=== PATIENT | male | born 1935 | race Caucasian/White ===

== ENCOUNTER → 2017-10-02 | Outpatient (CLI) | payer OTHER | LOC: BHLMT 10:00 | PROVIDERS: ATTEND Internal Medicine Cardiovascular Disease | DX: R01.1 Cardiac murmur, unspecified (principal); I10 Essential (primary) hypertension | CPT/HCPCS: 93306-PO ==

== ENCOUNTER → 2017-10-10 | Outpatient (CLI) | payer OTHER | LOC: BHFA 15:30 | PROVIDERS: ATTEND Internal Medicine Cardiovascular Disease | DX: R09.89 Other specified symptoms and signs involving the circulatory and respiratory systems (principal) ==

== ENCOUNTER → 2017-10-14 | Outpatient (CLI) | payer OTHER ==
[~2017-10-14] MED LIST: IOPAMIDOL (ISOVUE 370) 100 ML BTL IV ONE
== END ==
LOC: FIMAGING 14:00
PROVIDERS: ATTEND Internal Medicine Cardiovascular Disease
DX: I71.2 Thoracic aortic aneurysm, without rupture (principal)
CPT/HCPCS: 71275; 74174; Q9967

== ENCOUNTER 2017-12-03 12:32 | Inpatient (IN) | payer OTHER ==
[2017-12-03] MEDS ORDERED: DIAZEPAM 5 MG TAB PO ONE (12:39)
[2017-12-03] MEDS ORDERED: ASPIRIN EC 325 MG TAB PO ONE ×2 (12:39→13:03)
[2017-12-03] MEDS ORDERED: NS 1,000 ML IV ONE (12:39)
[2017-12-03] MEDS ORDERED: diphenhydrAMINE 25 MG CAP PO ONE ×2 (12:39→13:03)
[2017-12-03] MEDS ORDERED: FAMOTIDINE 20 MG TAB PO ONE (12:39)
[2017-12-03] MEDS ORDERED: FAMOTIDINE 20 MG TAB ONE (13:03)
[2017-12-03] MEDS ORDERED: DIAZEPAM 5 MG TAB ONE (13:04)
--- NOTE | 2017-12-03 13:09 | CPEKG ---
Heart Rate: 79 RR Interval: 759 P-R Interval: 136 QRSD Interval: 154 QT Interval: 440 QTC Interval: 505 P [place]: -38 QRS [place]: -57 T Wave [place]: 112 EKG Severity - ABNORMAL ECG - EKG Impression: SINUS RHYTHM EKG Impression: PROBABLE LEFT ATRIAL ABNORMALITY EKG Impression: LEFT BUNDLE BRANCH BLOCK Electronically Signed By: Ancelmo Mckeon 04-Dec-2017 12:44:34
[2017-12-03 13:34] LABS: INR 1.12 (0.83-1.16); PROTIME(PATIENT) 14.6 SEC (12.0-15.0)
--- NOTE | 2017-12-03 13:40 | PDHPUP ---
History & Physical Update H&P update statement: This history and physical update is based on an assessment of the patient which was completed after admission or registration (within 24 hours), but prior to the surgery/procedure. H&P update: H&P reviewed & patient examined, no change in patient's condition since H&P completed
--- NOTE | 2017-12-03 13:40 | PDPROPOC ---
Sedation Plan of Care Sedation Plan of Care: vital signs stable, mental status noted, patient educated of risks, benefits, alternatives, patient can tolerate sedation ASA Classification: ASA 2 Planned drugs: fentanyl, midazolam Mallampati Score: Class 2 Mallampati Reference Image: Patient passed 3-3-2 rule?: Yes
[2017-12-03 13:42] LABS: PLATELET COUNT 132 10^3/uL (150-400)
[2017-12-03] MEDS ORDERED: fentaNYL 100 MCG/2 ML INJ ONE (13:45)
[2017-12-03] MEDS ORDERED: LIDOCAINE 1% 300 MG/30 ML SDV ONE (13:45)
[2017-12-03] MEDS ORDERED: MIDAZOLAM 2 MG/2 ML VIAL ONE (13:46)
[2017-12-03] MEDS ORDERED: IOPAMIDOL (ISOVUE-370) 150 ML BTL IV ONE (13:46)
--- NOTE | 2017-12-03 15:53 | CPIP ---
[f rep st] INVASIVE CARDIAC PROCEDURE DATE OF PROCEDURE: 12/03/2017 PROCEDURE PERFORMED: Coronary angiography. INDICATION: Preoperative evaluation prior to ascending aortic aneurysm repair and aortic valve repla cement. ACCESS: The patient was prepped and draped in sterile fashion, and 1% lidocaine was used to anesthet ize the right inguinal region. A 6-Lebanese introducer sheath was placed selectively into the right co mmon femoral artery via modified Seldinger technique. CORONARY ANGIOGRAPHY: A 6-Lebanese JL4 was advanced to the left main coronary artery. It did not enga ge the artery well. It was exchanged for a 6-Lebanese JL-6. The 6-Lebanese JL-6 engaged the left main c oronary artery well, and images were obtained. The left main coronary artery trifurcated into an LAD , ramus, and circumflex coronary arteries. The left main coronary artery appeared normal. The left anterior descending coronary artery had mild diffuse disease in the proximal segment. There was no s tenosis greater than 20%. The ramus coronary artery is a large vessel. The ramus coronary artery ap peared normal. The circumflex coronary artery is a moderate-sized vessel. The circumflex coronary a rtery had mild diffuse disease in the mid vessel. There was no stenosis greater than 20%. A 6-Frenc h JR4 was advanced to the right coronary artery, and images obtained. The right coronary artery is d ominant. The right coronary artery had a single discrete 10-15% stenosis in the proximal segment. COMPLICATIONS: None. CONCLUSIONS: Mild coronary artery disease without flow limitation. /[id number]/MODL
[2017-12-03] MEDS ORDERED: CHLORHEXIDINE GLUC HIBICLENS 118 ML BTL TP SCH (21:00)
[2017-12-03] MEDS: SENNOSIDES/DOCUSATE SODIUM TAB PO SCH (21:48)
[2017-12-03] MEDS: MUPIROCIN 2% 22 GM OINT NS SCH (21:49)
[2017-12-04] MEDS ORDERED: SODIUM BICARBONATE 20 MEQ, LIDOCAINE 1% 10 ML in NORMOSOL-R 1,000 ML MISC ONE (06:00)
[2017-12-04] MEDS ORDERED: AMINOCAPROIC ACID 5 GM/20 ML VIAL IV ONE (06:00)
[2017-12-04] MEDS ORDERED: ceFAZolin 2 GM/SWFI 2 GM/20 ML SYR IVP ONE (06:00)
[2017-12-04] MEDS ORDERED: CITRATE DEXTROSE SOLN 500 ML BAG MISC ONE (06:00)
[2017-12-04] MEDS ORDERED: MANNITOL 25% 12.5 GM/50 ML VIAL IVP ONE (06:00)
[2017-12-04] MEDS ORDERED: INSULIN REGULAR HUMAN 100 UNIT in NS 100 ML IV ONE (06:00)
[2017-12-04] MEDS ORDERED: PHENYLEPHRINE HCL 50 MG in NS 250 ML IV ONE (06:00)
[2017-12-04] MEDS ORDERED: NOREPINEPHRINE BITARTRATE 16 MG in NS 250 ML IV ONE (06:00)
[2017-12-04] MEDS ORDERED: HEPARIN 10,000 UNIT/10 ML MDV (1,000 UNIT/ML) ONE ×2 (06:35→06:37)
[2017-12-04] MEDS ORDERED: PROTAMINE SULFATE 50 MG/5 ML VIAL IVP ONE (06:35)
[2017-12-04] MEDS ORDERED: CALCIUM CHLORIDE 1 GM/10 ML INJ ONE ×2 (06:35→06:37)
[2017-12-04] MEDS ORDERED: MILRINONE/DEXTROSE/100 ML BAG IV ONE (06:35)
[2017-12-04] MEDS ORDERED: DOPamine/DEXTROSE/250 ML BAG IV ONE (06:35)
[2017-12-04] MEDS ORDERED: NA BICARBONATE 50 MEQ/50 ML VIAL ONE (06:35)
[2017-12-04] MEDS ORDERED: ADENOSINE 6 MG/2 ML VIAL ONE (06:36)
[2017-12-04] MEDS ORDERED: ceFAZolin 1 GM VIAL ONE (06:36)
[2017-12-04] MEDS ORDERED: AMIODARONE HCL 150 MG/3 ML VIAL ONE ×2 (06:36→06:37)
[2017-12-04] MEDS ORDERED: niCARdipine/NACL/200 ML BAG IV ONE (06:36)
[2017-12-04] MEDS ORDERED: CITRATE DEXTROSE SOLN 500 ML BAG ONE (06:37)
[2017-12-04] MEDS ORDERED: ALBUMIN 5% 250 ML BOTTLE IV ONE (06:37)
[2017-12-04] MEDS ORDERED: LIDOCAINE 2% 100 MG/5 ML SYR ONE (06:37)
[2017-12-04] MEDS ORDERED: MAGNESIUM SULFATE 1 GM/2 ML VIAL ONE (06:38)
[2017-12-04] MEDS ORDERED: methylPREDNISolone SOD SUCC 1 GM/8 ML VIAL ONE (06:38)
[2017-12-04] MEDS ORDERED: fentaNYL 250 MCG/5 ML INJ ONE ×2 (06:44)
[2017-12-04] MEDS ORDERED: PROPOFOL/EMULSION 500 MG/50 ML BOTTLE IV ONE ×2 (06:44→09:57)
[2017-12-04] MEDS ORDERED: LR 1,000 ML IV ONE (06:55)
--- NOTE | 2017-12-04 07:01 | PDHPUP ---
History & Physical Update H&P update statement: This history and physical update is based on an assessment of the patient which was completed after admission or registration (within 24 hours), but prior to the surgery/procedure. H&P update: H&P reviewed & patient examined, changes noted ([facility] notable for rt dom leticia system with mild diffuse disease without flow limitations. SB 50s on tele.)
[2017-12-04] MEDS: MUPIROCIN 2% 22 GM OINT NS SCH ×2 (07:05→20:28)
[2017-12-04] MEDS ORDERED: MIDAZOLAM 2 MG/2 ML VIAL IVP ONE (07:05)
--- NOTE | 2017-12-04 07:06 | PDANEPAE ---
ANE History of Present Illness asc aortic aneurysm ANE Past Medical History - Cardiovascular History Hx Hypertension: Yes Hx Arrhythmias: No Hx Chest Pain: No Hx Coronary Artery / Peripheral Vascular Disease: No Hx CHF / Valvular Disease: Yes Hx Palpitations: No - Pulmonary History Hx COPD: No Hx Asthma/Reactive Airway Disease: No Hx Recent Upper Respiratory Infection: No Hx Oxygen in Use at Home: No Hx Sleep Apnea: No Sleep Apnea Screening Result - Last Documented: Negative - Neurologic History Hx Cerebrovascular Accident: No Hx Seizures: No Hx Dementia: No - Endocrine History Hx Diabetes: No Hypothyroid: No Hyperthyroid: No - Renal History Hx Renal Disorders: No - Liver History Hx Hepatic Disorders: No - Cancer History Hx Cancer: Yes Cancer History Comment: prostate - Chronic Pain History Chronic Pain: No ANE Review of Systems Review of Systems: ANE Patient History - Allergies Allergies/Adverse Reactions: ciprofloxacin [From Cipro] Allergy (Verified 11/17/17 11:52) Other-Enter Comments levofloxacin [From Levaquin] Allergy (Verified 11/17/17 11:52) Other-Enter Comments - Home Medications Home Medications: Ascorbic Acid [Vitamin C 500 mg (*)] 500 mg PO DAILY 11/17/17 [Last Taken ] Cholecalciferol Vit D3 [Vitamin D3 (*)] 1,000 units PO DAILY 11/17/17 [Last Taken 12/02/17] Herbals/Supplements -Info Only 1 ea PO DAILY 11/17/17 [Last Taken 12/02/17] Hydrochlorothiazide [HCTZ (*)] 37.5 mg PO DAILY 11/17/17 [Last Taken 12/02/17] [place]-3 Fatty Acids [Fish Oil 1000 mg (*)] 1,000 mg PO DAILY 11/17/17 [Last Taken 12/02/17] Omeprazole 20 mg PO DAILY 11/17/17 [Last Taken 12/02/17] Vitamin B Complex [Vitamin B Complex (OTC)] 1 each PO DAILY 11/17/17 [Last Taken 12/02/17] - NPO status NPO Status: no food or drink >8 hours NPO Since - Liquids (Date): 12/04/17 NPO Since - Liquids (Time): 00:00 NPO Since - Solids (Date): 12/04/17 NPO Since - Solids (Time): 00:00 - Smoking Hx Smoking Status: Never smoked ANE Labs/Vital Signs - Labs Result Diagrams: 12/03/17 13:00 12/04/17 03:15 - Vital Signs Blood Pressure: 135/70 Heart Rate: 67 Respiratory Rate: 16 O2 Sat (%): 95 Height: 160 cm Weight: 57.4 kg ANE Physical Exam - Airway Mallampati Score: Class 2 Mouth exam: normal dental/mouth exam - Pulmonary Pulmonary: no respiratory distress - Cardiovascular Cardiovascular: regular rate and rhythym - ASA Status ASA Status: III ANE Anesthesia Plan Anesthesia Plan: general endotracheal anesthesia Lines/Monitors: arterial line, central line, KAMRAN
[2017-12-04] MEDS ORDERED: MIDAZOLAM 2 MG/2 ML VIAL ONE (07:20)
--- NOTE | 2017-12-04 07:52 | PDMN ---
Medical Necessity Medical necessity: [facility] IP only surgery, cpt 94796 aortic aneurysm repair & aortic valve replacement
[2017-12-04] MEDS ORDERED: MINERAL OIL 10 ML VIAL ONE (12:34)
[2017-12-04] MEDS ORDERED: MAGNESIUM SULF 2 GM/WATER 50 ML BAG IV ONE (13:28)
[2017-12-04] MEDS ORDERED: MAGNESIUM HYDROXIDE 30 ML UDCUP PO PRN (13:40)
[2017-12-04] MEDS ORDERED: SODIUM CL NASAL 45 ML BTL EACHNARE PRN (13:40)
[2017-12-04] MEDS ORDERED: BISACODYL 10 MG SUPP PR PRN (13:40)
[2017-12-04] MEDS ORDERED: MEPERIDINE 25 MG/0.5 ML AMP IVP PRN (13:40)
[2017-12-04] MEDS ORDERED: ONDANSETRON DISINTEGRATING 4 MG TAB PO PRN (13:40)
[2017-12-04] MEDS ORDERED: CEPACOL LOZENGE PO PRN (13:40)
[2017-12-04] MEDS ORDERED: PANTOPRAZOLE SODIUM 40 MG VIAL IVP ONE (13:40)
[2017-12-04] MEDS ORDERED: MAGNESIUM SULF 2 GM/WATER 50 ML IV ONE (13:40)
[2017-12-04] MEDS ORDERED: D50W 25 GM/50 ML SYR IVP PRN (13:40)
[2017-12-04] MEDS ORDERED: ACETAMINOPHEN 650 MG SUPP PR PRN (13:40)
[2017-12-04] MEDS ORDERED: ALBUMIN 5% 250 ML IV PRN (13:40)
[2017-12-04] MEDS ORDERED: LACTULOSE 20 GM/30 ML UDCUP PO PRN (13:40)
[2017-12-04] MEDS ORDERED: HYDROCODONE/APAP 5/325 TAB PO PRN (13:40)
[2017-12-04] MEDS ORDERED: POLYETHYLENE GLYCOL 3350 17 GM PKT PO PRN (13:40)
[2017-12-04] MEDS ORDERED: ACETAMINOPHEN 325 MG TAB PO PRN (13:40)
[2017-12-04] MEDS ORDERED: METOCLOPRAMIDE 10 MG/2 ML VIAL IVP PRN (13:40)
[2017-12-04] MEDS ORDERED: ONDANSETRON 4 MG/2 ML VIAL IVP PRN (13:40)
[2017-12-04] MEDS ORDERED: NS 1,000 ML IV SCH (13:45)
[2017-12-04] MEDS ORDERED: INSULIN REGULAR HUMAN 100 UNIT in NS 100 ML IV SCH (14:00)
[2017-12-04] MEDS ORDERED: ceFAZolin 2 GM/DEXTROSE 100 ML IV SCH (14:00)
--- NOTE | 2017-12-04 14:05 | POSTANESTH ---
Post Anesthetic Evaluation Cardiovascular Status: Normal, Stable, Tx Hyper/Hypo-tension, Other, See Comment Respiratory Status: Normal, Stable, Requires Airway Assist, Other, See Comment Level of Consciousness/Mental Status: Other, See Comment Pain Control: Adequate, Prn Tx Ordered Nausea/Vomiting Control: Adequate, Prn Tx Ordered Complications Possibly Related to Anesthesia: None Noted (stable on dopamine, stable on vent, sedated with propofol)
[2017-12-04] MEDS ORDERED: AMIODARONE HCL 100 ML IV ONE (15:30)
[2017-12-04] MEDS: ceFAZolin 2 GM/SWFI 2 GM/20 ML SYR IVP SCH ×2 (15:33→21:45)
--- NOTE | 2017-12-04 16:10 | GOP ---
[f rep st] OPERATIVE REPORT DATE OF OPERATION: 12/04/2017 SURGEON: Harry Amaro DO DIGITAL COMPOSER: VIBHA Urbina ANESTHESIOLOGIST: Christopher Gupta MD PREOPERATIVE DIAGNOSIS: 1. Aortic root and transverse arch aneurysm. 2. Severe aortic insufficiency. 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 2. Severe aortic insufficiency. 3. Evidence of coagulopathy. PROCEDURE PERFORMED: 1. Aortic root replacement with a #27 freestyle bioprosthesis. 2. Samuel-arch replacement under low-flow circulation arrest with a #30 Hemashield graft. 3. Right axillary artery end-to-side 8 mm graft for cannulation. FINDINGS: The patient presented with severe aortic insufficiency with markedly dilated sinuses, asce nding aorta and transverse arch tapering to 3.6 cm in the distal arch. He was noted to have heavy ca lcification in the distal 3rd of the ascending and transverse arch. The valve was trileaflet. His c oronaries had moderate, nonobstructing disease. DESCRIPTION OF PROCEDURE: He was consented for surgery, brought to the operating room, intubated, mo nitoring lines were placed including a transesophageal echo. Right axillary artery was exposed witho ut difficulty. An 8 mm Hemashield graft was anastomosed end-to-side with BioGlue reinforcement and a cannula placed in it after heparinization. We then opened the sternum and cannulated the right atri um as well as retrograde cardioplegia and LV sump. Cardiopulmonary bypass was begun. The patient fibrillated almost immediately upon going on bypass. The sump was turned down. The LV w as decompressed and the aorta was crossclamped with retrograde cardioplegia administered as well as t opical hypothermia, and cooling to 22 degrees centigrade, with EEG guidance during the cooling period . The coronary sinuses were resected, the buttons were developed. The valve was excised and the pat ient was sized for a 27 mm freestyle graft. Pledgeted mattress sutures were then placed through the anulus and through the graft itself and secured with Cor-Knots. This was reinforced with BioGlue. W e then excised a button from the noncoronary sinus of the pig's root, which had been rotated 120 degr ees, and this became the patient's left coronary sinus where the coronary button was re-anastomosed w ithout difficulty. The same was done on the right side after measuring properly with the heart full, which was anastomosed to the pig's right coronary button. The non-coronary button was oversewn with a pledgeted mattress suture. At this point, the patient had reached 22 degrees centigrade, and had EEG silence for 4 minutes. The patient was placed in deep Trendelenburg. A clamp was placed across the base of the innominate a rtery where there was no plaque, and continuous perfusion of the brain through the right axillary art lorenzo was performed at 10 cc/kg at 22 degrees centigrade. We then transected the undersurface of the a rch as far as the left subclavian artery, and fashioned a samuel arch graft of 30 mm, which was approxi mated with a continuous running 3-0 Prolene suture, reinforced at multiple sites with pledgeted mattr ess sutures. BioGlue was applied. The cross-clamp was reapplied to the graft and rewarming was begu n. We then continued the aortic root by securing the remainder of the buttons and fashioned it for a n end-to-end anastomosis to the graft, which was performed without difficulty and without abnormal an gulation or kinking. This was reinforced with BioGlue and a vent was placed in the graft. The cross -clamp was removed with suction on the ascending aortic vent and LV sump. Spontaneous cardiac activity was noted to resume. The patient was then easily weaned from bypass. Duran rodas watched him for some time off bypass, repaired some suture anastomotic leaks with pledgeted mattres s sutures. The heparin was then reversed with protamine. The cannula was removed and oversewn. The Hemashield graft was transected a centimeter prior to its anastomosis and oversewn as well as having clips applied. All wounds were closed in a standard fashion. Transesophageal echo revealed good LV function with normal aortic valve function. The patient was returned to ICU in stable condition. /[id number]/MODL
[2017-12-04] MEDS ORDERED: PANTOPRAZOLE SODIUM 40 MG VIAL ONE (16:50)
--- NOTE | 2017-12-04 17:21 | GCON ---
[f rep st] CONSULTATION HIDE INSPECTOR CONSULTATION Patient examined postoperatively after receiving a replacement of the aortic valve root and severiano-arch . HISTORY OF PRESENT ILLNESS: The patient is an 82-year-old white male with past medical history inclu ding gastroesophageal reflux disease, hypertension, prostate cancer, aortic regurgitation, and an asc ending aortic aneurysm. He is examined postoperatively. Patient is currently sedated and on mechani lisa ventilation. Prior to this, he was doing reasonably well. There was no pleuritic-type chest román n or angina equivalent, no shortness of breath, and no cough or production of sputum. REVIEW OF SYSTEMS: 10-point review of systems deferred secondary to patient on mechanical ventilatio n. PAST MEDICAL HISTORY: Again significant for aortic regurgitation, gastroesophageal reflux disease, h ypertension, prostate cancer, and again aortic aneurysm. PAST SURGICAL HISTORY: Has had ankle surgery, cataract, and tonsillectomy. HOME MEDICATIONS: Include calcium, coenzyme Q10, fish oil, hydrochlorothiazide, lycopene, magnesium, saw palmetto, and multivitamins. SOCIAL HISTORY: No history of tobacco use. No history of alcohol use. FAMILY HISTORY: Significant for cancer. PHYSICAL EXAM: VITAL SIGNS: Blood pressure 135/70, pulse 67, respirations 16, temperature 36.5, oxy gen saturation 95% on mechanical ventilation. GENERAL: A well-developed, well-nourished elderly whi te male who is resting comfortably on mechanical ventilation. HEENT: Eyes are PERRLA,. EOMI. Thro at: Endotracheal tube is in good position. NECK: Supple with no cervical adenopathy. HEART: Regu lar rate and rhythm and rhythm. A 2/6 systolic murmur at the left sternal border without radiation. LUNGS: Diminished breath sounds but no wheeze. ABDOMEN: Soft, nontender. Bowel sounds are presen t in all 4 quadrants. EXTREMITIES: No clubbing, cyanosis, or edema. LABORATORY DATA: White count 4.7, hemoglobin 15, hematocrit 44, platelet count 132. INR is 1.12. S odium 141, potassium 3.8, chloride 106, CO2 27, BUN 24, creatinine 1.2. Chest x-ray shows lines in good position and endotracheal tube in good position. There is some evide nce of cardiomegaly and a widened mediastinum. IMPRESSION: 1. Status post aortic valve replacement and replacement of the aortic root and severiano-arch. 2. Acute respiratory failure secondary to above. 3. History of hypertension. 4. History of prostate cancer. 5. History of gastroesophageal reflux disease. RECOMMENDATIONS: 1. Will wean from mechanical ventilation as tolerated. 2. DVT and PE prophylaxis, holding anticoagulation for now. 3. Stress ulcer prophylaxis. 4. Aggressive blood sugar control. 5. Early ambulation. 6. PT and OT. /[id number]/MODL
[2017-12-04] MEDS: fentaNYL 100 MCG/2 ML INJ IVP PRN ×3 (17:23→22:27)
[2017-12-04] MEDS: KETOROLAC 15 MG/1 ML SDV IVP SCH (17:23)
[2017-12-04] MEDS ORDERED: FAMOTIDINE 20 MG/NACL 50 ML IV SCH (18:00)
[2017-12-04] MEDS: POTASSIUM Cl (KCl) 50 ML IV PRN ×2 (18:21→19:42)
[2017-12-04] MEDS ORDERED: CHLORHEXIDINE GLUCONATE 15 ML UDL PO SCH (21:00)
[2017-12-04] MEDS: SENNOSIDES/DOCUSATE SODIUM TAB PO SCH (22:15)
[2017-12-05 01:01] LABS: PLATELET COUNT 43 10^3/uL (150-400)
[2017-12-05] MEDS: KETOROLAC 15 MG/1 ML SDV IVP SCH ×2 (01:03→05:35)
[2017-12-05 05:11] LABS: PLATELET COUNT 44 10^3/uL (150-400)
[2017-12-05] MEDS ORDERED: HEPARIN 5,000 UNIT/0.5 ML INJ SC SCH (06:00)
[2017-12-05] MEDS: ceFAZolin 2 GM/SWFI 2 GM/20 ML SYR IVP SCH ×3 (06:10→22:32)
--- NOTE | 2017-12-05 06:59 | SOAPPROG ---
SOAP Progress Note Assessment/Plan: Assessment: POD#1 Composite graft replacement of AVR/root/asc ao and hemiarch with 27mm Freestyle porcine root and 30 mm hemashield graft. Rt axillary cannulation with 8 mm hemashield graft for low flow cerebral perfusion during hypothermic circulatory arrest. Aneurysmal aorta with severe AI - s/p tissue AVR/root/asc ao and hemiarch replacement under hypothermic circ arrest. Stable early postop course. Extubated without incident. No apparent neurologic dysfx. Adequately diuresing moderate volume overload with stable renal fx. Antithrombotic prophylaxis with ASA alone pending stability of rhythm. AF prophylaxis with BB as allowed by rhythm. Postop AV node dyfx - Hx bradycardia. Early postop JR and nonconducted PWs req DDD pacing. EP consulted. 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 Acute expected blood loss anemia with thrombocytopenia and coagulopathy - Stable s/p 4u PRBC, 1u plt and 2u FFP. No evidence active bleeding. VTE prophylaxis with SCDs until platelet rebound. HTN - Home control with HCTZ. Postop control with BB and lasix when appropriate. Nonobstructive coronary and carotid artery disease - Secondary prevention with baby ASA, BB and statin when appropriate. Plan: NPO pending EP review of rhythm. Stop Toradol. Routine POD#1 orders re lines and mobility. 12/05/17 06:56 Subjective: Comfortable. No dizziness or nausea. Hungry. Objective: Vital Signs Temp Pulse Resp BP Pulse Ox 37.1 C 80 15 143/60 H 96 12/05/17 03:57 12/05/17 06:00 12/05/17 06:00 12/05/17 06:00 12/05/17 06:00 Laboratory Results 12/05/17 04:31 12/05/17 04:31 12/04/17 12/05/17 12/06/17 05:59 05:59 05:59 Intake Total 1050 1414 Output Total 1642 Balance 1050 -228 PT 14.6 SEC (12.0-15.0) 12/03/17 13:00 INR 1.12 (0.83-1.16) 12/03/17 13:00 No gtts. Remains pacer dep. No underlying escape rhythm. Min suppl O2 req. No sig CTOP. Balanced I/Os. CXR -> No PTX, mild pulm vasc congestion, sm left pl eff. Labs as expected, incl platelet count. Physical Exam - Physical Exam General Appearance: alert, no apparent distress Respiratory: decreased breath sounds (bases), other (CTs x 2 y-d to pleurovac, serosang drainage, no air leak) Cardiac/Chest: regular rate, rhythm (paced), other (Sternotomy dressing CDI. A& V wires intact.) Abdomen: normal bowel sounds, non-tender, soft Skin: warm/dry Extremities: swelling (1+ gen), other (Rt ax incision CDI. Rt hand CSM intact. ) ICD10 Worksheet Patient Problems: Problems Problem Status Onset Acute blood loss anemia Acute Coronary atherosclerosis Acute S/P ascending aortic replacement Acute ~12/04/17 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
[2017-12-05] MEDS ORDERED: ASPIRIN 81 MG CHEWABLE TAB TUBE PRN (09:00)
[2017-12-05] MEDS ORDERED: BACITRACIN IRRIGATION/NS 50,000 UNITS/1,000 ML BTL IRR ONE (09:09)
[2017-12-05] MEDS ORDERED: ceFAZolin 2 GM/SWFI 2 GM/20 ML SYR IVP ONE (09:09)
--- NOTE | 2017-12-05 09:25 | ASMTCMCOM ---
CM Note CM Note Notes: Patient is POD #1 aortic valve replacement. He was extubated after surgery and is stable in the ICU. Patient lives independently with . PT/OT have been ordered. If patient has discharge needs, Case Management will assist. Date Signed: 12/05/2017 09:25 AM Electronically Signed By:Courtney Samuel RN
--- NOTE | 2017-12-05 09:50 | PDINTPN ---
Pattern [facility] Progress Note Assessment/Plan: Assessment/plan: * Aortic aneurysm * Status post replacement of aortic valve and severiano arch * Respiratory-stable off mechanical ventilation * Postop AV node dysfunction-pacemaker soon * Pain-well controlled * Coronary disease * Prostate cancer * Hypertension * Gastroesophageal reflux disease * PT/OT Subjective: Working with PT. Ambulating well. Still somewhat unsteady on his feet. Objective: Vital Signs Temp Pulse Resp BP Pulse Ox 37.3 C 90 26 H 121/57 H 93 12/05/17 09:00 12/05/17 09:00 12/05/17 09:00 12/05/17 09:00 12/05/17 09:00 Laboratory Results 12/05/17 04:31 12/05/17 04:31 12/04/17 12/05/17 12/06/17 05:59 05:59 05:59 Intake Total 1050 1414 Output Total 1642 189 Balance 1050 -228 -189 PT 14.6 SEC (12.0-15.0) 12/03/17 13:00 INR 1.12 (0.83-1.16) 12/03/17 13:00 - Time Spent With Patient Time Spent With Patient: 35 min of time spent with patient, over 1/2 involved with coordination of care or counseling Physical Exam - Physical Exam General Appearance: WD/WN, alert, no apparent distress EENT: PERRL/EOMI Neck: non-tender, full range of motion, supple, normal inspection Respiratory: crackles (Few), No chest non-tender Cardiac/Chest: normal peripheral pulses, regular rate, rhythm, systolic murmur Peripheral Pulses: 2+: carotid (R), carotid (L), femoral (R), femoral (L), dorsalis-pedis (R), dorsalis-pedis (L) Abdomen: normal bowel sounds, non-tender, soft Male Genitalia: deferred Rectal: deferred Skin: normal color, warm/dry Extremities: normal range of motion, non-tender, normal inspection, normal capillary refill ICD10 Worksheet Patient Problems: Problems Problem Status Onset Acute blood loss anemia Acute Coronary atherosclerosis Acute S/P ascending aortic replacement Acute ~12/04/17 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
--- NOTE | 2017-12-05 10:32 | PDPROPOC ---
Sedation Plan of Care Sedation Plan of Care: vital signs stable, mental status noted, patient educated of risks, benefits, alternatives, patient can tolerate sedation ASA Classification: ASA 3 Planned drugs: fentanyl, midazolam Mallampati Score: Class 3 Mallampati Reference Image: Patient passed 3-3-2 rule?: Yes
[2017-12-05] MEDS ORDERED: LIDOCAINE 1% 300 MG/30 ML SDV ONE (10:47)
[2017-12-05] MEDS ORDERED: fentaNYL 100 MCG/2 ML INJ ONE (10:48)
[2017-12-05] MEDS ORDERED: BUPIVACAINE 0.5% 30 ML SDV ONE (10:48)
[2017-12-05] MEDS ORDERED: MIDAZOLAM 2 MG/2 ML VIAL ONE (10:48)
[2017-12-05 11:16] LABS: PLATELET COUNT 39 10^3/uL (150-400)
[2017-12-05] MEDS ORDERED: IOPAMIDOL (ISOVUE-300) 100 ML BTL ONE (11:59)
[2017-12-05] MEDS: PANTOPRAZOLE SODIUM 40 MG TAB PO SCH (12:24)
[2017-12-05] MEDS: ASPIRIN 81 MG CHEWABLE TAB PO SCH (12:24)
[2017-12-05] MEDS: MUPIROCIN 2% 22 GM OINT NS SCH ×2 (12:24→22:31)
--- NOTE | 2017-12-05 16:43 | EPPROC ---
Electrophysiology Procedure Note: PROCEDURE PERFORMED: Implantation of an A/V Pacemaker Fluoroscopy venogram INDICATION: Pt is s/p AVR and has complete heart block and hence it was decided to place dual chamber pacemaker. PROCEDURE NOTE: Patient presented to the cardiac catheterization laboratory in a fasting, post absorptive state. Cardiac wharf labourer nurse administered moderate sedation. The left infraclavicular area was prepped and draped in the usual sterile fashion. Lidocaine plus bupivacaine was used for local anesthesia. Left subclavian venography was performed by injection of iodinated contrast into the left antecubital vein. This was done to assure patency of the vein and also to assess for any anatomical aberrations. Using a combination of blunt and sharp dissection and electrocautery, the dissection was carried down to the prepectoral fascia. All bleeding was controlled with electrocautery. Fluoroscopy was utilized during the entire procedure for venous access and placement of the leads. Using the usual technique, left cephalic vein was accessed but it was small and hence under venogram guidance left subclavian access was obtained and two wires were placed. Through this initially a 7F and later a 7F sheath was passed. Placement of the guidewires into the venous system was confirmed by low- pressure blood return and also by visualizing the guidewires advancing into the inferior vena cava. A purse string suture was applied around the guidewires. An active fixation ventricular lead was advanced into the right ventricular apex and screwed in place. An active fixation atrial lead was advanced into the right atrial appendage and screwed in place. The peel away sheaths were removed. Pacing thresholds, sensing parameters and lead impedances were measured. There was no diaphragmatic stimulation at maximum output. The leads were sutured to the prepectoral fascia with 3 nonabsorbable sutures each. The pocket was created and it was flushed using antibiotic solution. It was inspected for any bleeding. The leads were attached to the pacemaker securely. The pacemaker was inserted into the pocket and secured in place with a nonabsorbable suture. Fluoroscopy was performed in OJEDA and SUDHA planes to verify right-sided placement of the leads. Also fluoroscopy of the pacemaker pocket was performed. The pacemaker pocket was closed in 3 layers with absorbable vicryl sutures. Steristrips were placed. Appropriate dressing was applied. The patient left the cardiac catheterization laboratory in stable condition. Serial Numbers: Device: [facility] [place] 8 SN [id number] Atrial Lead: Biotronik Solia S45 SN [id number] Ventricular Lead: Biotronik Solia S53 SN [id number] Stimulation Thresholds & Impedance Measurements: Atrial Lead 2.9mV, 1.5@0.4ms, 468Ohms Ventricular Lead n/a, 0.6@0.4ms, 565Ohms Lonnie Pacing Parameters Pacing mode: DDDR Lower rate: 60 Upper tracking rate: 130 Upper sensor rate: 130 Patient Problems: Problems Problem Status Onset Acute blood loss anemia Acute Coronary atherosclerosis Acute S/P ascending aortic replacement Acute ~12/04/17 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
[2017-12-05] MEDS: traMADol 50 MG TAB PO PRN (22:31)
[2017-12-06] MEDS ORDERED: NS 1,000 ML IV SCH (01:00)
--- NOTE | 2017-12-06 05:54 | CPEKG ---
Heart Rate: 90 RR Interval: 667 P-R Interval: 191 QRSD Interval: 122 QT Interval: 408 QTC Interval: 500 P [place]: 35 QRS [place]: -76 T Wave [place]: 82 EKG Severity - ABNORMAL ECG - EKG Impression: A-V DUAL-PACED RHYTHM Electronically Signed By: Morgan Malone 08-Dec-2017 08:56:07
[2017-12-06] MEDS: traMADol 50 MG TAB PO PRN ×3 (06:22→21:49)
[2017-12-06 07:18] LABS: PLATELET COUNT 37 10^3/uL (150-400)
--- NOTE | 2017-12-06 07:25 | SOAPPROG ---
SOAP Progress Note Assessment/Plan: POD#2: Composite graft replacement of AVR/root/asc ao and hemiarch with 27mm Freestyle porcine root and 30 mm hemashield graft. Rt axillary cannulation with 8 mm hemashield graft for low flow cerebral perfusion during hypothermic circulatory arrest. POD #1: A/V pacemaker implantation Aneurysmal aorta with severe AI - s/p tissue AVR/root/asc ao and hemiarch replacement under hypothermic circ arrest. Antithrombotic prophylaxis with ASA alone pending stability of rhythm. AF prophylaxis with BB as allowed by rhythm. One chest tube at removal criteria. Postop AV node dyfx - stable s/p PPM implantation. PPM interrogated today without issues. Will clip temporary pacing wires. Postop atrial fibrillation - amiodarone protocol started today. CHADS2 score 3. Will consider starting thromboprophylaxis once platelets rebound. Acute expected blood loss anemia with thrombocytopenia and coagulopathy - Stable s/p 4u PRBC, 1u plt and 2u FFP. No evidence active bleeding. VTE prophylaxis with SCDs until platelet rebound. Precautionary HIT panel pending. HTN - Home control with HCTZ. Postop control with BB and lasix when appropriate. Nonobstructive coronary and carotid artery disease - Secondary prevention with baby ASA, BB and statin when appropriate. Subjective: Denies pain/SOB. Objective: Vital Signs Temp Pulse Resp BP Pulse Ox 37.4 C 91 18 109/57 L 91 L 12/06/17 04:00 12/06/17 04:00 12/06/17 04:00 12/06/17 04:00 12/06/17 04:00 Laboratory Results 12/06/17 06:10 12/06/17 06:10 12/05/17 12/06/17 12/07/17 05:59 05:59 05:59 Intake Total 1414 1925 Output Total 1642 1009 Balance -228 916 PT 14.6 SEC (12.0-15.0) 12/03/17 13:00 INR 1.12 (0.83-1.16) 12/03/17 13:00 Physical Exam - Physical Exam General Appearance: WD/WN, alert, no apparent distress EENT: No scleral icterus (R), No scleral icterus (L) Neck: normal inspection Respiratory: No respiratory distress Cardiac/Chest: irregularly irregular Abdomen: non-tender, soft, No distended Skin: normal color, warm/dry Extremities: pedal edema Neuro/Psych: no motor/sensory deficits, alert, normal mood/affect, oriented x 3 ICD10 Worksheet Patient Problems: Problems Problem Status Onset Acute blood loss anemia Acute Coronary atherosclerosis Acute S/P ascending aortic replacement Acute ~12/04/17 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
--- NOTE | 2017-12-06 10:44 | PDCARPN ---
Cardiology Progress Note Assessment/Plan: Assessment: PACEMAKER PLACEMENT 12/05/[address] Chaim Hendricks Due to CHB. [employer] Dual Chamber Pacemaker with no complications. Pressure Dressing in place. Tender to touch. Remove Pressure dressing this afternoon, then redress site. Pacer function normal. Plan: Will sign off. 12/06/17 10:39 Subjective: Pacemaker site tender when touched, Objective: Vital Signs (8 Hrs) Temp Pulse Resp BP Pulse Ox 12/06/17 08:16 36.6 C 97 24 H 139/76 H 98 12/06/17 04:00 37.4 C 91 18 109/57 L 91 L Intake/Output (24 Hrs) 12/05/17 12/06/17 12/07/17 05:59 05:59 05:59 Intake Total 1414 1925 Output Total 1642 1009 Balance -228 916 Intake: Oral (ml) 700 IV Intake (ml) 502 800 IV Infused (ml) 912 425 Albumin 5% 250 ml @ As 500 Directed IV PRN PRN Rx#: [id number] DOPamine/DEXTROSE 400 mg 54 IV .STK-MED ONE Rx#: [id number] Insulin Regular Human 100 20 unit In Ns 100 ml @ Per Protocol IV CONT AMELIA Rx#: [id number] Magnesium Sulf 2 gm/Water 50 50 ml @ 12.5 mls/hr IV ONCE ONE Rx#:[id number] Ns 1,000 ml @ 25 mls/hr 288 425 IV CONT AMELIA Rx#: [id number] Output: Urine (ml) 1122 599 Catheter 1077 149 Toilet 45 Urinal 450 Chest Tube Output (ml) 520 410 Location 1 520 330 Location 2 80 Other: Weight 62 kg 66.6 kg Intake Quantity No: waiting code enforcement officer eval Sufficient Number of Voids Urinal 1 Number of Stools Catheter 0 Post Void Residual Scan Volume (ml) Urinal 194 Result Diagrams: 12/06/17 06:10 12/06/17 06:10 - Physical Exam Constitutional: general pain Cardiovascular: regular rate and rhythm, no rubs, systolic murmur, other (PACED) Peripheral Pulses: 2+: dorsalis-pedis (R), dorsalis-pedis (L) Respiratory: no crackles, no wheezes, reduced air movement Skin: warm, other (Pacer site painful with minimal swelling--pressure dressing in place.) Neurologic: AAOx3 Psychiatric: cooperative, interactive, anxious ICD10 Worksheet Patient Problems: Problems Problem Status Onset Acute blood loss anemia Acute Coronary atherosclerosis Acute S/P ascending aortic replacement Acute ~12/04/17 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
[2017-12-06] MEDS: ASCORBIC ACID 500 MG TAB PO SCH (10:55)
[2017-12-06] MEDS: PANTOPRAZOLE SODIUM 40 MG TAB PO SCH (10:55)
[2017-12-06] MEDS: SENNOSIDES/DOCUSATE SODIUM TAB PO SCH ×2 (10:55→20:39)
[2017-12-06] MEDS: CHOLECALCIFEROL VIT D3 1,000 UNITS TAB PO SCH (10:56)
[2017-12-06] MEDS: MUPIROCIN 2% 22 GM OINT NS SCH (10:56)
[2017-12-06] MEDS: VITAMIN B COMPLEX 1 EA CAP/TAB PO SCH (10:56)
[2017-12-06] MEDS ORDERED: AMIODARONE HCL 200 ML IV ONE (12:26)
[2017-12-06] MEDS ORDERED: AMIODARONE HCL 100 ML IV ONE (12:26)
[2017-12-06] MEDS: METOPROLOL TARTRATE 25 MG TAB PO SCH ×2 (13:29→20:39)
--- NOTE | 2017-12-06 16:26 | ASMTCMCOM ---
CM Note CM Note Notes: 12/06/2017 Case Management Note Discussed case with JANIS Mensah for Dr. Amaro. Anticipated d/c is early next week likely home with cardiac rehab. Case Management will follow. Date Signed: 12/06/2017 04:08 PM Electronically Signed By:Ana Luisa Wisdom RN
[2017-12-06] MEDS ORDERED: AMIODARONE HCL 540 MG in D5W 300 ML IV ONE (19:30)
[2017-12-06] MEDS ORDERED: FUROSEMIDE 40 MG/4 ML VIAL IVP ONE (20:02)
--- NOTE | 2017-12-07 07:40 | SOAPPROG ---
SOAP Progress Note Assessment/Plan: POD#3: Composite graft replacement of AVR/root/asc ao and hemiarch with 27mm Freestyle porcine root and 30 mm hemashield graft. Rt axillary cannulation with 8 mm hemashield graft for low flow cerebral perfusion during hypothermic circulatory arrest. POD #2: A/V pacemaker implantation Aneurysmal aorta with severe AI - s/p tissue AVR/root/asc ao and hemiarch replacement under hypothermic circ arrest. Antithrombotic prophylaxis with ASA. AF prophylaxis with BB. CTs to be removed today. Postop AV node dyfx - stable s/p PPM implantation. PPM interrogated today without issues. Will clip temporary pacing wires. Postop atrial fibrillation - amiodarone protocol started today. CHADS2 score 3. Will consider starting thromboprophylaxis once platelets rebound. Acute expected blood loss anemia with thrombocytopenia and coagulopathy - Stable s/p 4u PRBC, 1u plt and 2u FFP. No evidence active bleeding. VTE prophylaxis with SCDs until platelet rebound. Precautionary HIT panel pending. HTN - Home control with HCTZ. Postop control with BB and lasix when appropriate. Nonobstructive coronary and carotid artery disease - Secondary prevention with baby ASA, BB. Subjective: Denies pain/SOB. Hopeful to go home after hospitalization. Objective: Vital Signs Temp Pulse Resp BP Pulse Ox 36.9 C 85 17 100/62 98 12/07/17 03:24 12/07/17 03:24 12/07/17 03:24 12/07/17 03:24 12/07/17 03:24 Laboratory Results 12/07/17 06:25 12/06/17 12/07/17 12/08/17 05:59 05:59 05:59 Intake Total 1925 2430 Output Total 1009 1255 Balance 916 1175 PT 14.6 SEC (12.0-15.0) 12/03/17 13:00 INR 1.12 (0.83-1.16) 12/03/17 13:00 Physical Exam - Physical Exam General Appearance: WD/WN, alert, no apparent distress EENT: No scleral icterus (R), No scleral icterus (L) Neck: normal inspection Respiratory: No respiratory distress Cardiac/Chest: other (AV paced) Abdomen: non-tender, soft, No distended Skin: normal color, warm/dry Extremities: pedal edema Neuro/Psych: no motor/sensory deficits, alert, normal mood/affect, oriented x 3 ICD10 Worksheet Patient Problems: Problems Problem Status Onset Acute blood loss anemia Acute Coronary atherosclerosis Acute S/P ascending aortic replacement Acute ~12/04/17 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
[2017-12-07 07:44] LABS: PLATELET COUNT 34 10^3/uL (150-400)
[2017-12-07] MEDS ORDERED: IOPAMIDOL (ISOVUE 370) 100 ML BTL IV ONE (08:58)
[2017-12-07] MEDS: FUROSEMIDE 40 MG/4 ML VIAL IVP SCH ×2 (09:00→15:36)
[2017-12-07] MEDS: METOPROLOL TARTRATE 25 MG TAB PO SCH ×2 (09:00→21:07)
[2017-12-07] MEDS: CHOLECALCIFEROL VIT D3 1,000 UNITS TAB PO SCH (09:01)
[2017-12-07] MEDS: AMIODARONE HCL 200 MG TAB PO SCH ×2 (09:01→21:06)
[2017-12-07] MEDS: SENNOSIDES/DOCUSATE SODIUM TAB PO SCH ×2 (09:01→21:07)
[2017-12-07] MEDS: POTASSIUM CL 20 MEQ TAB PO SCH ×2 (09:01→15:36)
[2017-12-07] MEDS: VITAMIN B COMPLEX 1 EA CAP/TAB PO SCH (09:01)
[2017-12-07] MEDS: OMEGA-3 FATTY ACIDS 1,000 MG CAP PO SCH (09:01)
[2017-12-07] MEDS: ASCORBIC ACID 500 MG TAB PO SCH (09:01)
[2017-12-07] MEDS: PANTOPRAZOLE SODIUM 40 MG TAB PO SCH (09:01)
--- NOTE | 2017-12-08 06:46 | SOAPPROG ---
SOAP Progress Note Assessment/Plan: POD#4: Composite graft replacement of AVR/root/asc ao and hemiarch with 27mm Freestyle porcine root and 30 mm hemashield graft. Rt axillary cannulation with 8 mm hemashield graft for low flow cerebral perfusion during hypothermic circulatory arrest. POD #3: A/V pacemaker implantation Aneurysmal aorta with severe AI - s/p tissue AVR/root/asc ao and hemiarch replacement under hypothermic circ arrest. Antithrombotic prophylaxis with ASA. AF prophylaxis with BB. CTs out. Postop AV node dyfx - stable s/p PPM implantation. PPM interrogated today without issues. Pacing wires clipped. Postop atrial fibrillation - amiodarone protocol started today. CHADS2 score 3. Will consider starting thromboprophylaxis once platelets rebound. Acute expected blood loss anemia with thrombocytopenia and coagulopathy - Stable s/p 4u PRBC, 1u plt and 2u FFP. No evidence active bleeding. VTE prophylaxis with SCDs until platelet rebound. Precautionary HIT panel pending. HTN - Home control with HCTZ. Postop control with BB and lasix when appropriate. Nonobstructive coronary and carotid artery disease - Secondary prevention with baby ASA, BB. Subjective: Denies pain/SOB. Objective: Vital Signs Temp Pulse Resp BP Pulse Ox 37.2 C 80 20 114/60 95 12/08/17 04:00 12/08/17 04:00 12/08/17 04:00 12/08/17 04:00 12/08/17 04:00 18 18 12/09/17 05:59 05:59 05:59 Intake Total 2430 1100 Output Total 1255 1850 Balance 1175 -750 PT 14.6 SEC (12.0-15.0) 12/03/17 13:00 INR 1.12 (0.83-1.16) 12/03/17 13:00 Physical Exam - Physical Exam General Appearance: WD/WN, alert, no apparent distress EENT: No scleral icterus (R), No scleral icterus (L) Neck: normal inspection Respiratory: No respiratory distress Cardiac/Chest: other (AV paced) Abdomen: non-tender, soft, No distended Skin: normal color, warm/dry Extremities: pedal edema Neuro/Psych: no motor/sensory deficits, alert, normal mood/affect, oriented x 3 ICD10 Worksheet Patient Problems: Problems Problem Status Onset Acute blood loss anemia Acute Coronary atherosclerosis Acute S/P ascending aortic replacement Acute ~12/04/17 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
[2017-12-08 07:09] LABS: PLATELET COUNT 45 10^3/uL (150-400)
[2017-12-08] MEDS: METOPROLOL TARTRATE 25 MG TAB PO SCH ×2 (09:23→20:43)
[2017-12-08] MEDS: ASCORBIC ACID 500 MG TAB PO SCH (09:23)
[2017-12-08] MEDS: FUROSEMIDE 40 MG/4 ML VIAL IVP SCH ×2 (09:23→16:12)
[2017-12-08] MEDS: POTASSIUM CL 20 MEQ TAB PO SCH ×2 (09:23→16:12)
[2017-12-08] MEDS: SENNOSIDES/DOCUSATE SODIUM TAB PO SCH ×2 (09:24→20:42)
[2017-12-08] MEDS: PANTOPRAZOLE SODIUM 40 MG TAB PO SCH (09:25)
[2017-12-08] MEDS: VITAMIN B COMPLEX 1 EA CAP/TAB PO SCH (09:25)
[2017-12-08] MEDS: OMEGA-3 FATTY ACIDS 1,000 MG CAP PO SCH (09:25)
[2017-12-08] MEDS: AMIODARONE HCL 200 MG TAB PO SCH ×2 (09:25→20:43)
[2017-12-08] MEDS: CHOLECALCIFEROL VIT D3 1,000 UNITS TAB PO SCH (09:25)
--- NOTE | 2017-12-08 10:12 | ASMTCMCOM ---
CM Note CM Note Notes: 12/08/2017 Case Management Note Met w/pt to discuss d/c needs. Pt expresses concern with d/c straight home because his works and is not able to stay home all day to assist with recovery support. Discussed SNF options. Pt requested referrals to [facility], [facility] and [facility]. Faxed referrals via [employer]. Case Management d/c poc: to SNF rehab pending acceptance. Case Management to follow. Date Signed: 12/08/2017 10:11 AM Electronically Signed By:Ana Luisa Wisdom RN
--- NOTE | 2017-12-08 12:03 | ASMTCMCOM ---
CM Note CM Note Notes: 12/08/2017 Case Management Note Phone call from Nabeel at [facility] accepting pt for semi private room. Phone call from [facility] accepting pt for private room. Discussed with patient. Pt prefers [facility] as his can walk to visit him. Case Management d/c poc: [facility]. Case Management to follow. Date Signed: 12/08/2017 12:02 PM Electronically Signed By:Ana Luisa Wisdom RN
[2017-12-09] MEDS ORDERED: POTASSIUM CL 20 MEQ TAB PO ONE (07:00)
--- NOTE | 2017-12-09 07:01 | SOAPPROG ---
SOAP Progress Note Assessment/Plan: POD#5: Composite graft replacement of AVR/root/asc ao and hemiarch with 27mm Freestyle porcine root and 30 mm hemashield graft. Rt axillary cannulation with 8 mm hemashield graft for low flow cerebral perfusion during hypothermic circulatory arrest. POD #4: A/V pacemaker implantation Aneurysmal aorta with severe AI - s/p tissue AVR/root/asc ao and hemiarch replacement under hypothermic circ arrest. Antithrombotic prophylaxis with ASA. AF prophylaxis with BB. CTs out. Continue IV Lasix for fluid overload. Postop AV node dyfx - stable s/p PPM implantation. PPM interrogated without issues. Pacing wires clipped. Postop atrial fibrillation - amiodarone protocol started today. CHADS2 score 3. Prompt conversion to SR and thromboprophylaxis avoided. Acute expected blood loss anemia with thrombocytopenia and coagulopathy - stable s/p 4u PRBC, 1u plt and 2u FFP. No evidence active bleeding. VTE prophylaxis with SCDs until platelet rebound. Precautionary HIT negative with platelets rebounding. HTN - Home control with HCTZ. Postop control with BB and lasix. Nonobstructive coronary and carotid artery disease - Secondary prevention with baby ASA, BB. Subjective: Feels well. Decided on [facility]. Objective: Vital Signs Temp Pulse Resp BP Pulse Ox 37.2 C 70 16 97/57 L 91 L 12/09/17 04:00 12/09/17 04:00 12/09/17 04:00 12/09/17 04:00 12/09/17 04:00 Laboratory Results 12/09/17 03:20 12/09/17 03:20 12/08/17 12/09/17 12/10/17 05:59 05:59 05:59 Intake Total 1100 1190 Output Total 1850 300 Balance -750 890 PT 14.6 SEC (12.0-15.0) 12/03/17 13:00 INR 1.12 (0.83-1.16) 12/03/17 13:00 Physical Exam - Physical Exam General Appearance: WD/WN, alert, no apparent distress EENT: No scleral icterus (R), No scleral icterus (L) Neck: normal inspection Respiratory: No respiratory distress Cardiac/Chest: other (AV paced ) Abdomen: non-tender, soft, No distended Male Genitalia: other (scrotal edema) Skin: normal color, warm/dry Extremities: pedal edema Neuro/Psych: no motor/sensory deficits, alert, normal mood/affect, oriented x 3 ICD10 Worksheet Patient Problems: Problems Problem Status Onset Acute blood loss anemia Acute Coronary atherosclerosis Acute S/P ascending aortic replacement Acute ~12/04/17 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
[2017-12-09] MEDS: CHOLECALCIFEROL VIT D3 1,000 UNITS TAB PO SCH (09:10)
[2017-12-09] MEDS: POTASSIUM CL 20 MEQ TAB PO SCH ×2 (09:10→15:12)
[2017-12-09] MEDS: METOPROLOL TARTRATE 25 MG TAB PO SCH ×2 (09:10→20:59)
[2017-12-09] MEDS: SENNOSIDES/DOCUSATE SODIUM TAB PO SCH (09:10)
[2017-12-09] MEDS: AMIODARONE HCL 200 MG TAB PO SCH ×2 (09:10→20:59)
[2017-12-09] MEDS: ASCORBIC ACID 500 MG TAB PO SCH (09:11)
[2017-12-09] MEDS: FUROSEMIDE 40 MG/4 ML VIAL IVP SCH ×2 (09:11→15:12)
[2017-12-09] MEDS: PANTOPRAZOLE SODIUM 40 MG TAB PO SCH (09:11)
[2017-12-09] MEDS: OMEGA-3 FATTY ACIDS 1,000 MG CAP PO SCH (09:11)
[2017-12-09] MEDS: VITAMIN B COMPLEX 1 EA CAP/TAB PO SCH (09:11)
--- NOTE | 2017-12-09 13:16 | ECHO ---
[email or web address] [address] [address] Main: [phone] Fax: Transthoracic Echocardiogram Name: ANH HOLBROOK MR#: [id number] Study Date: 12/08/2017 Study Time: 01:45 PM Date of : 1935 Age: 82 year(s) Height: 157.5 cm (62 in.) Weight: 66.68 kg (147 lb.) BSA: 1.68 m2 Gender: Male Examination: Echo Indication: #27 Freestyle aortic root replacement Image Quality: Contrast: Requested by: Steven Bello BP: 98 mmHg/62 mmHg Heart Rate: Rhythm: Indication: #27 Freestyle aortic root replacement Procedure Staff Lockstitch Cup Setter: Gilson Toledo RDCS Reading Physician: Pato Garcia MD Requesting Provider: Conclusions: Normal size left ventricle. Borderline concentric LV hypertrophy. Normal global systolic LV function. EF is 68 %. Diastolic dysfunction is present. . Septal wall motion consistent with pacemaker activation.. There is a pacemaker lead noted in the right ventricle. There is mild thickening of the mitral valve leaflets. Mild mitral valve regurgitation is present. Normal functioning aortic valve prosthesis. The prosthetic aortic valve is normal. No prosthesis stenosis. No prosthesis regurgitation. Trivial tricuspid valve regurgitation. The pulmonary artery pressure is normal. Right Ventricular systolic pressure is measured at 29 mmHg. The pulmonic valve is normal in appearance and function. Normal size aortic root measuring 2.7 cm. No previous available Measurements: Chambers Valvular Assessment AV/MV Valvular Assessment TV/PV Normal Normal Normal Name Value Range Name Value Range Name Value Range Ao Brittny (MM): 2.7 cm (2.2 cm-3.7 AV Vmax: 2.17 m/s (1 m/s-1.7 TR Vmax: 2.47 mm/s ( - ) cm) m/s) TR PGmax: 24 mmHg ( - ) IVSd (2D): 0.9 cm (0.6 cm-1.1 AV maxP mmHg ( - ) syst. PAP: 29 mmHg ( - ) cm) AV meanP mmHg ( - ) PV Vmax: 0.80 m/s (0.6 m/s-0.9 LVDd (2D): 4.5 cm (4.2 cm-5.9 RONDA (VTI): 1.5 cm ( - ) m/s) cm) Patient: ANH HOLBROOK Study Date: 12/08/2017 Page 1 of 2 01:45 PM LVDs (2D): 2.8 cm (2.1 cm-4 MV E Vmax: 0.90 m/s ( - ) PV PGmax: 3 mmHg ( - ) cm) MV A Vmax: 0.70 m/s ( - ) LVPWd (2D): 1.2 cm (0.6 cm-1 MV E/A: 1.29 ( - ) cm) LVOTd 2.1 cm 2.1 cm mm LVEF (2D): 68 (>=54 %) Continued Measurements: Chambers Valvular Assessment TV/PV Name Value Name Value LADs: 3.0 cm CVP (est.): 5 mmHg LADs Lon.4 cm LA Area: 14.6 cm2 LA Volume: 39 ml LA Volume Index: 23.2 ml/m2 Findings: Left Ventricle: Normal size left ventricle. Borderline concentric LV hypertrophy. Normal global systolic LV function. EF is 68 %. Diastolic dysfunction is present. . Septal wall motion consistent with pacemaker activation.. Right Ventricle: Normal size right ventricle. Normal RV function. There is a pacemaker lead noted in the right ventricle. Left Atrium: The left atrium is normal in size. Right Atrium: The right atrium is normal in size. Mitral Valve: There is mild thickening of the mitral valve leaflets. Mild mitral valve regurgitation is present. Aortic Valve: The aortic valve is a bioprosthesis. Normal functioning aortic valve prosthesis. The prosthetic aortic valve is normal. No prosthesis stenosis. No prosthesis regurgitation. Tricuspid Valve: The tricuspid valve appears normal. Trivial tricuspid valve regurgitation. The pulmonary artery pressure is normal. Right Ventricular systolic pressure is measured at 29 mmHg. Pulmonic Valve: The pulmonic valve is normal in appearance and function. Aorta: The ascending aorta has been repaired/replaced. Normal size aortic root measuring 2.7 cm. Normal size ascending aorta. Normal size aortic arch. Exam Comments: Subcostal view was not obtained due to surgical dressings.. (No Signature Object) Patient: ANH HOLBROOK Study Date: 12/08/2017 Page 2 of 2 01:45 PM [id number]
[2017-12-09] MEDS ORDERED: SENNOSIDES/DOCUSATE SODIUM TAB PO PRN (21:00)
--- NOTE | 2017-12-10 07:47 | SOAPPROG ---
SOAP Progress Note Assessment/Plan: Assessment: POD#6 Composite graft replacement of AVR/root/asc ao and hemiarch with 27mm Freestyle porcine root and 30 mm hemashield graft. Rt axillary cannulation with 8 mm hemashield graft for low flow cerebral perfusion during hypothermic circulatory arrest. POD#5 dual chamber permanent pacemaker Aneurysmal aorta with severe AI - s/p tissue AVR/root/asc ao and hemiarch replacement under hypothermic circ arrest. Stable early postop course. Actively diuresing moderate volume overload with stable renal fx. Antithrombotic prophylaxis with ASA alone. AF prophylaxis with amio and BB. Postop AV node dysfx - Hx bradycardia. Early postop JR and CHB req PPM. ? AF promptly aborted on amio and not seen on routine device interrogation. Thromboprophylaxis deferred. Acute expected blood loss anemia with thrombocytopenia and coagulopathy - Stable s/p 4u PRBC, 1u plt and 2u FFP. No evidence active bleeding. Precautionary HIT negative. Platelet rebound noted. HTN - Home control with HCTZ. Postop control with BB and lasix. Nonobstructive coronary and carotid artery disease - Secondary prevention with baby ASA, BB and statin. Plan: Ok for discharge to SNF. Instructions re diet, meds, activity, wound care and f/u to be reviewed. 12/10/17 07:46 Subjective: Feels well. Improving strength and stamina. No pain. Ready to leave hospital. Objective: Vital Signs Temp Pulse Resp BP Pulse Ox 36.7 C 70 18 107/78 97 12/10/17 04:00 12/10/17 04:00 12/10/17 04:00 12/10/17 04:00 12/10/17 04:00 Laboratory Results 12/10/17 04:36 12/10/17 04:36 12/09/1718 12/11/17 05:59 05:59 05:59 Intake Total 1190 1260 Output Total 300 750 Balance 890 510 PT 14.6 SEC (12.0-15.0) 12/03/17 13:00 INR 1.12 (0.83-1.16) 12/03/17 13:00 Asense, Vpaced. Min suppl O2 req. Adequate fluid balance. Plt cont to rise. Physical Exam - Physical Exam General Appearance: alert, no apparent distress Respiratory: crackles (bases) Cardiac/Chest: regular rate, rhythm, other (Sternum grossly stable. Sternotomy CDI. Pacer dressing CDI. 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
[2017-12-10] MEDS ORDERED: METOPROLOL TARTRATE 25 MG TAB PO SCH (09:00)
[2017-12-10] MEDS ORDERED: AMIODARONE HCL 200 MG TAB PO SCH (09:00)
[2017-12-10] MEDS: VITAMIN B COMPLEX 1 EA CAP/TAB PO SCH (09:54)
[2017-12-10] MEDS: ASPIRIN 81 MG CHEWABLE TAB PO SCH (09:54)
[2017-12-10] MEDS: ASCORBIC ACID 500 MG TAB PO SCH (09:55)
[2017-12-10] MEDS: OMEGA-3 FATTY ACIDS 1,000 MG CAP PO SCH (09:55)
[2017-12-10] MEDS: POTASSIUM CL 20 MEQ TAB PO SCH ×2 (09:55→14:54)
[2017-12-10] MEDS: FUROSEMIDE 40 MG TAB PO SCH ×2 (09:55→14:54)
[2017-12-10] MEDS: PANTOPRAZOLE SODIUM 40 MG TAB PO SCH (09:55)
[2017-12-10] MEDS: CHOLECALCIFEROL VIT D3 1,000 UNITS TAB PO SCH (09:55)
[2017-12-10 09:59] VITALS: BP 107/54
[2017-12-10] MEDS: AMIODARONE HCL 200 MG TAB PO SCH (10:02)
[2017-12-10] MEDS: METOPROLOL TARTRATE 25 MG TAB PO SCH (10:02)
--- NOTE | 2017-12-10 10:24 | PDDCSUM ---
Discharge Summary Discharge Summary: DATE OF ADMISSION: 12/03/17 DATE OF DISCHARGE: 12/10/17 DISPOSITION: Transferred to [facility] PRINCIPAL DISCHARGE DIAGNOSES: 1. Nonobstructive coronary artery disease 2. Aneurysmal ascending aorta with severe aortic valve insufficiency treated with composite graft replacement of the aortic valve, aortic root, ascending aorta and severiano-arch 3. 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 Acute expected blood loss anemia with thrombocytopenia FOLLOW UP APPOINTMENTS: 1. CV surgery: with Dr Amaro at [facility] on 12/16 at 1:30 pm. 2. Cardiology: with Dr Newman at [facility] within 4-6 weeks. Appointment to be established during surgical visit. 3. Pacemaker clinic: at [facility] on 12/16 at 11:15 am. FOLLOW UP TESTIN. CBC and BMP on 12/15. Results to [facility]. 2. CXR prior to surgical appointment. ALLERGIES/SENSITIVITIES: Ciprofloxacin and levofloxacin causing tendinitis DISCHARGE MEDICATIONS: see medical administration record for full details Essentially as on admission (Vit B complex, Vit D3, Vit C, Fish oil, Prilosec) with the following adjustments: 1. Hold HCTZ 37.5 mg daily NEW prescriptions: 1. Amiodarone 200 mg daily x 1 month 2. Metoprolol tartrate 12.5 mg BID 3. Lasix 40 mg BID until back to baseline weight and no swelling 4. Klor-Con 20 meq BID with lasix 5. Tramadol 25-50 mg q6h prn incisional discomfort 6. O2 continuously at 2 lpm or as directed by SpO2 7. OTC: ASA 81 mg daily CONSULTANTS: Pulmonology/critical care (Araceli), EP cardiology (Ruthie) PROCEDURES/IMAGIN/9 (Jessica): Left heart catheterization with selective coronary angiography. Access via right common femoral artery. Findings: right dominant coronary system , mild proximal LAD disease with no stenosis > 20%, mild mid LCX disease with no stenosis > 20%, discrete 10-15% proximal RCA stenosis. 12/04 (Sondra): Aortic root replacement with a 27 mm Medtronic Freestyle porcine root. Ascending aortic and hemiarch replacement with a 30 mm Hemashield graft. Right axillary artery end-to-side 8 mm Hemashield graft for cerebral perfusion during deep hypothermic circulatory arrest. 12/05 (Ruthie): Implantation of a Biotronik Edora dual chamber permanent pacemaker. Pacing mode DDDR. Lower rate 60 ppm. 12/07 CTA chest: Interval resection of the ascending aorta. 3.3 cm thoracic aorta at the arch level. Normal take off and caliber of the great vessels. 12/08 (Garcia): Transthoracic echocardiogram: Nl BiV size and systolic fx. LVEF 68%. Mild LV diastolic dysfunction. Nl sized atria. Nl bioprosthetic aortic valve fx. Mild MR. Trivial TR. HISTORY OF PRESENT ILLNESS: 82 yo hypertensive male with a murmur discovered by echo to have a sclerotic trileaflet aortic valve with severe AI, grade 1 LVDD, a 4.6 cm aortic root, and a 6 cm ascending aorta with arch involvement. No LVE, LVSD, descending thoracic aortic enlargement, abdominal aortic enlargement or heart failure symptoms. Admitted in advance of valvular and aneurysmal resection to complete surgical risk stratification. PERTINENT PAST MEDICAL HISTORY: Essential HTN, carotid artery disease, prostate cancer, GERD, cataracts ( anticipating eye surgery when recovered from cardiac surgery). ABBREVIATED HOSPITAL COURSE BY ACTIVE PROBLEM LIST: 1. Aneurysmal aorta with severe AI - s/p tissue AVR/root/asc ao and hemiarch replacement under hypothermic circ arrest. Stable early postop course. Actively diuresing moderate volume overload with stable renal fx. Antithrombotic prophylaxis with ASA alone. AF prophylaxis with amio and BB. 2. Postop AV node dysfx - Hx bradycardia. Early postop JR and CHB req PPM. Normal device fx without dysrhythmia confirmed by post implant interrogation. 3. Acute expected blood loss anemia with thrombocytopenia and coagulopathy - Stable s/p 4u PRBC, 1u plt and 2u FFP. No evidence active bleeding. Precautionary HIT negative. Platelet rebound noted. 4. HTN - Home control with HCTZ. Postop control with BB and lasix. 5. Nonobstructive coronary and carotid artery disease - Secondary prevention with baby ASA, BB and statin.
--- NOTE | 2017-12-10 11:32 | PDIAF ---
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; postop PPM Code Status: Full Code - Medication Management Discharge Medications: Medications to Continue on Transfer Ascorbic Acid [Vitamin C 500 mg (*)] 500 mg PO DAILY 11/17/17 [Last Taken ] Cholecalciferol Vit D3 [Vitamin D3 (*)] 1,000 units PO DAILY 11/17/17 [Last Taken 12/02/17] [place]-3 Fatty Acids [Fish Oil 1000 mg (*)] 1,000 mg PO DAILY 11/17/17 [Last Taken 12/02/17] Omeprazole 20 mg PO DAILY 11/17/17 [Last Taken 12/02/17] Vitamin B Complex [Vitamin B Complex (OTC)] 1 each PO DAILY 11/17/17 [Last Taken 12/02/17] Acetaminophen [Tylenol 325mg (*)] 325 - 650 mg PO Q4HRS PRN tab 12/10/17 [Last Taken Unknown] Amiodarone HCl [Pacerone (*)] 200 mg PO DAILY #30 tab 12/10/17 [Last Taken Unknown] Aspirin [Aspirin 81mg (*)] 81 mg PO DAILY tab.chew 12/10/17 [Last Taken Unknown ] Furosemide [Lasix 40 MG (*)] 40 mg PO BID@0900,1500 tab 12/10/17 [Last Taken Unknown] Metoprolol Tartrate [Lopressor 25 mg (*)] 12.5 mg PO BID tab 12/10/17 [Last Taken Unknown] Potassium Cl [Klor-Con 20 meq (*)] 20 meq PO BIDDIUR tab 12/10/17 [Last Taken Unknown] Sennosides/Docusate Sodium [Senokot-S] 1 - 2 tab PO BID PRN tab 12/10/17 [Last Taken Unknown] traMADol [Ultram 50 mg (*)] 25 - 50 mg PO Q6HRS PRN tab 12/10/17 [Last Taken Unknown] Discharge Medications: Refer to the Discharge Home Medication list for PRN reason. PICC Care - Routine: N/A - Orders Services needed: Registered Nurse, Physical Therapy, Occupational Therapy Isolation Type: None Diet Recommendation: no restrictions on diet Diet Texture: Regular Texture Diet, Thin Liquids, Meds Whole w/Liquids Weigh Patient: daily Wound Care Instructions: daily soap and water. ok to leave midline and rt ax incisions open to air. avoid creams or ointments until scabs off Activity/Weight Bearing Restrictions: Sternal and pacemaker precautions as detailed Additional Instructions: Device Precaution: 1. No lifting more the 10 pounds for 1 week with Left Arm 2. No shower or getting incision wet until after wound check 3. No submerging incision site until completely healed 4. Watch for sign of infection (fever, redness, swelling, drainage, night sweat or chills) Call Dr Hendricks's office immediately if you have any of these symptoms. 5. No Lifting Left arm higher the shoulder height for the next 4 weeks 6. No strenuous exercise for 2 weeks 7. Follow up for device and wound check on 12/16/2017 at 11:15 8. Follow up with Dr Hendricks in 1 month 9. Call [facility] [phone] with any question or concerns Call [facility] cardiac rehab to enroll in phase 2 classes if not contacted within 48hrs of discharge. Sternal precautions x 4 weeks. Avoid lifting > 10lbs with an outstretched arm. Avoid push/pull activities. No driving for 2 weeks or until cleared by surgery. Cleanse wounds once daily with soap and water. Avoid underwater immersion (pool , hot tub, bath) until scabs off. Ok to leave all wounds open to air. Avoid creams or ointments until scabs off. Elevate low legs at rest. Avoid prolonged standing or dangling. Log daily vital signs: weight, resting heart rate over 1 minute, blood pressure , +/- pulse oximetry. Call [facility] for overnight weight gain > 2lbs, weekly gain > 5lbs or worsening leg swelling. Call [facility] for resting heart rate > 120 or < 60 OR for systolic blood pressure consistently < 90 or > 140. Target oxygen saturation > 89%. Adjustments per cardiac rehab. Please obtain labwork and a chest xray prior to surgical appointment. Use requisition form attached to appointment card if necessary. Chest x-rays don't require an appointment. Go to the Emergency Room entrance at the [facility] location. Sign in at the computer kiosk in the entryway. You will be given a number and may sit in the waiting area until called. You will be registered and directed to the Imaging desk on the 1st floor. This process can take up to an hour. Allow at least 30 min before your appointment to get x-ray taken. Ok to use [id number] medications for iron supplementation, bowel function or pain. Max daily dose of Tylenol 3000 mg. Avoid nonsteroidal anti-inflammatories (ie. ibuprofen, advil, motrin) until platelet function normalized. - Labs/Radiology BMP Date: 12/15/17 (results to Dr Amaro's nurse Liz) CBC w/diff Date: 12/15/17 (results to Dr Amaro's nurse Liz) Imaging Orders: CXR prior to surgical appointment Call or Fax Lab and Imaging Results to: Dr Amaro's nurse Liz Fete - Follow Up Care Current Providers and Referrals: Harry Amaro DO [Doctor of Osteopathy] - 12/16/17 1:30 pm Mykel Mccarthy DO [Primary Care Provider] - Chaim Hendricks MD [Medical Doctor] - 12/16/17 (WOUND CHECK)
--- NOTE | 2017-12-10 16:26 | ASDISCHSUM ---
Discharge Information Plan Status:SNF Medically Cleared to Leave:12/10/2017 Discharge Date:12/10/2017 03:38 PM D/C Disposition:Jail Facility ADT D/C Disposition:Jail Facility Projected Discharge Date:12/10/2017 11:00 AM Transportation at D/C: Discharge Delay Reason: Follow-Up Date:12/10/2017 11:00 AM Discharge Slot: Final Diagnosis: Placement Information Referral Type:*Alf/SNF Referral ID:[id number] Provider Name:[facility] Address 1:[address] Address 2: City:[place] Selection Factors: State:[place] Patient Contact Information Contact Name:OMKAR Relationship: Address:[address] City:[place] Alternate Phone: State/Zip Code:[place] [address] Email: Financial Information Financial Class:Medicare Primary Plan Desc:MEDICARE INPATIENT Primary Plan Number:[id number] Secondary Plan Desc:HUMANA Secondary Plan Number:[id number] Assessment Information [facility] CM Progress Note CM Note CM Note Notes: Patient is POD #1 aortic valve replacement. He was extubated after surgery and is stable in the ICU. Patient lives independently with . PT/OT have been ordered. If patient has discharge needs, Case Management will assist. Date Signed: 12/05/2017 09:25 AM Electronically Signed By:Courtney Samuel RN [facility] CM Progress Note CM Note CM Note Notes: 12/06/2017 Case Management Note Discussed case with JANIS Mensah for Dr. Amaro. Anticipated d/c is early next week likely home with cardiac rehab. Case Management will follow. Date Signed: 12/06/2017 04:08 PM Electronically Signed By:Ana Luisa Wisdom RN [facility] CM Progress Note CM Note CM Note Notes: 12/08/2017 Case Management Note Met w/pt to discuss d/c needs. Pt expresses concern with d/c straight home because his works and is not able to stay home all day to assist with recovery support. Discussed SNF options. Pt requested referrals to [facility], [facility] and [facility]. Faxed referrals via [employer]. Case Management d/c poc: to SNF rehab pending acceptance. Case Management to follow. Date Signed: 12/08/2017 10:11 AM Electronically Signed By:Ana Luisa Wisdom RN [facility] MAISHA Progress Note CM Note CM Note Notes: 12/08/2017 Case Management Note Phone call from Nabeel at [facility] accepting pt for semi private room. Phone call from [facility] accepting pt for private room. Discussed with patient. Pt prefers [facility] as his can walk to visit him. Case Management d/c poc: [facility]. Case Management to follow. Date Signed: 12/08/2017 12:02 PM Electronically Signed By:Ana Luisa Wisdom RN Case Management Discharge Plan Note Case Management Discharge Discharge Order Complete? Answers: Yes Patient to Obtain Answers: Other Notes: [facility] Medications Transportation Arranged Answers: Other Notes: [facility] w/c Transport will Pick (Date 12/10/2017 03:30 PM & Time) EMTALA Complete Answers: No Case Management Transport Answers: Yes Form Complete Faxed Final Orders Answers: Yes Agency/Facility Transfer Answers: Yes Report Printed & Faxed to Receiving Agency Family Notified Answers: Yes Discharge Comments Notes: CM is being discharged today to [facility]. CM spoke w/ Nabeel at [facility] and notified her of the d/c. CM met w/ pt for dispo planning. Pt would like CM to set up transportation. Pt does not mind paying for it. CM set up a wheelchair transport through [facility]. Pt is on oxygen. CM provided Mo, RN w/ phone number to give report. CM sent d/c orders. CM available for changes. Plan: [facility] Date Signed: 12/10/2017 12:49 PM Electronically Signed By:GOGO Deleon Intervention Information Intervention Type:*IM-Signed Date of Service:12/10/2017 12:35 PM Patient Type:Inpatient Staff Member:GOGO Emery Michelle Hours: Discipline: Severity: Comment:
== END 2017-12-10 15:38 | DRG 217 ==
LOC: FCATH 12:32 → F2W 18:03 → OBSVTOIN 18:08 → F2N 12-04 07:34 → F2W 12-05 12:00
PROVIDERS: ADMIT Thoracic Surgery (Cardiothoracic Vascular Surgery); ATTEND Thoracic Surgery (Cardiothoracic Vascular Surgery)
PROC: B2111ZZ Fluoroscopy of Multiple Coronary Arteries using Low Osmolar Contrast (ICD-10-PCS; 2017-12-03)
PROC: 02RF08Z Replacement of Aortic Valve with Zooplastic Tissue, Open Approach (ICD-10-PCS; principal; 2017-12-04 07:15)
PROC: 5A1221Z Performance of Cardiac Output, Continuous (ICD-10-PCS; principal; 2017-12-04 07:15)
PROC: 30233N1 Transfusion of Nonautologous Red Blood Cells into Peripheral Vein, Percutaneous Approach (ICD-10-PCS; 2017-12-04 07:15)
PROC: 30233K1 Transfusion of Nonautologous Frozen Plasma into Peripheral Vein, Percutaneous Approach (ICD-10-PCS; 2017-12-04 07:15)
PROC: 30233R1 Transfusion of Nonautologous Platelets into Peripheral Vein, Percutaneous Approach (ICD-10-PCS; 2017-12-04 07:15)
PROC: 0JH606Z Insertion of Pacemaker, Dual Chamber into Chest Subcutaneous Tissue and Fascia, Open Approach (ICD-10-PCS; 2017-12-05)
PROC: 02H63JZ Insertion of Pacemaker Lead into Right Atrium, Percutaneous Approach (ICD-10-PCS; 2017-12-05)
PROC: 02HK3JZ Insertion of Pacemaker Lead into Right Ventricle, Percutaneous Approach (ICD-10-PCS; 2017-12-05)
DX: I35.1 Nonrheumatic aortic (valve) insufficiency (principal); I44.2 Atrioventricular block, complete; D62 Acute posthemorrhagic anemia; I71.2 Thoracic aortic aneurysm, without rupture; K21.9 Gastro-esophageal reflux disease without esophagitis; I10 Essential (primary) hypertension; I25.10 Atherosclerotic heart disease of native coronary artery without angina pectoris; Z85.46 Personal history of malignant neoplasm of prostate; D69.6 Thrombocytopenia, unspecified
CPT/HCPCS: 82947-QW; 86022-90; 92526-GN; 92610-GN; 97116-GP; 97162-GP; 97166-GO; 97530-GO; 97530-GP; 97535-GO; C1768; C1785; C1898; G8978-GP-CK; G8979-GP-CJ; G8987-GO-CK; G8988-GO-CI; G8996-GN-CH; G8996-GN-CI; G8997-GN-CH; G8998-GN-CH; J0153; J0282; J0690; J1265; J1644; J1815; J1885; J1940; J2001; J2150; J2250; J2260; J2370; J2405; J2704; J2720; J2765; J2930; J3010; J3475; J3480; J7060; P9016; P9017; P9035; P9040; P9041; P9100; Q9967

== ENCOUNTER 2017-12-12 16:37 | Inpatient (IN) | payer OTHER ==
--- NOTE | 2017-12-12 16:43 | CPEKG ---
Heart Rate: 88 RR Interval: 682 P-R Interval: 184 QRSD Interval: 128 QT Interval: 416 QTC Interval: 504 P [place]: -28 QRS [place]: -78 T Wave [place]: 75 EKG Severity - ABNORMAL ECG - EKG Impression: ATRIAL-SENSED VENTRICULAR-PACED COMPLEXES EKG Impression: NONSPECIFIC IVCD WITH LAD EKG Impression: LEFT VENTRICULAR HYPERTROPHY Electronically Signed By: Steven Cabello 12-Dec-2017 17:47:12
[2017-12-12] MEDS ORDERED: NS 500 ML IV ONE ×4 (16:45→19:21)
--- NOTE | 2017-12-12 16:54 | EDPHY ---
H & P Stated Complaint: chest pain and hypotension. recent major cardic surgery around 12/03 Time Seen by Provider: 12/12/17 16:37 HPI/ROS: CHIEF COMPLAINT: Cardiac alert, hypotension HISTORY OF PRESENT ILLNESS: The patient is brought into the emergency department by paramedics after he experienced reported posterior shoulder pain in the setting of hypotension, recent cardiac surgery and a abnormal EKG. The patient has a history of a aortic repair and valve replacement. The patient also developed complete heart block postoperatively. He also had fairly significant postoperative anemia requiring 4 units of packed red blood cells. The patient was discharged from the hospital 2 days ago. The patient returns tonight with complaints of weakness, difficulty sleeping secondary to dyspnea and mild ongoing pain in his shoulder which was present after his surgery. The patient denies any asymmetric calf pain or swelling. The patient denies any fever. The patient denies additional acute complaints. REVIEW OF SYSTEMS: A comprehensive 10 point review of systems is otherwise negative aside from elements mentioned in the history of present illness. Source: Patient, EMS Exam Limitations: No limitations - Medical/Surgical History Hx Asthma: No Hx Chronic Respiratory Disease: No Hx Diabetes: No Hx Cardiac Disease: No Hx Renal Disease: No Hx Cirrhosis: No Hx Alcoholism: No Hx HIV/AIDS: No Hx Splenectomy or Spleen Trauma: No Other PMH: HTN, ANKLE FX, NOSE THINNING TO R SIDE, TONSILECTOMY. heart valve replacement - Social History Smoking Status: Never smoked - Physical Exam Exam: General Appearance: Elderly male, mildly tachypneic Eyes: Pupils equal and round no pallor or injection ENT, Mouth: Mucous membranes moist Respiratory: Rales bilateral lower lobes Cardiovascular: Regular rate and rhythm Gastrointestinal: Abdomen is soft and nontender, no masses, bowel sounds normal Neurological: A&O, normal motor function, normal sensory exam, normal cranial nerves Skin: Ecchymosis noted across the anterior chest wall consistent with his postoperative state Musculoskeletal: Neck is supple nontender Extremities: symmetrical, full range of motion Psychiatric: Patient is oriented X 3, there is no agitation Constitutional: Initial Vital Signs Temperature (C) 37.2 C 12/12/17 16:37 Heart Rate 88 12/12/17 16:37 Respiratory Rate 30 H 12/12/17 16:37 Blood Pressure 88/58 L 12/12/17 16:37 O2 Sat (%) 97 12/12/17 16:37 O2 Delivery Mode Nasal Cannula O2 (L/minute) 2 Allergies/Adverse Reactions: ciprofloxacin [From Cipro] Allergy (Verified 12/12/17 16:40) Other-Enter Comments levofloxacin [From Levaquin] Allergy (Verified 12/12/17 16:40) Other-Enter Comments Home Medications: Medication Instructions Recorded Ascorbic Acid [Vitamin C 500 mg 500 mg PO DAILY 11/17/17 (*)] Cholecalciferol Vit D3 [Vitamin D3 1,000 units PO DAILY 11/17/17 (*)] [place]-3 Fatty Acids [Fish Oil 1000 1,000 mg PO DAILY 11/17/17 mg (*)] Omeprazole 20 mg PO DAILY 11/17/17 Vitamin B Complex [Vitamin B 1 each PO DAILY 11/17/17 Complex (OTC)] Acetaminophen [Tylenol 325mg (*)] 325 - 650 mg PO Q4HRS PRN tab 12/10/17 Amiodarone HCl [Pacerone (*)] 200 mg PO DAILY #30 tab 12/10/17 Aspirin [Aspirin 81mg (*)] 81 mg PO DAILY tab.chew 12/10/17 Furosemide [Lasix 40 MG (*)] 40 mg PO BID@0900,1500 tab 12/10/17 Metoprolol Tartrate [Lopressor 25 12.5 mg PO BID tab 12/10/17 mg (*)] Potassium Cl [Klor-Con 20 meq (*)] 20 meq PO BIDDIUR tab 12/10/17 traMADol [Ultram 50 mg (*)] 25 - 50 mg PO Q6HRS PRN tab 12/10/17 Sennosides/Docusate Sodium 1 - 2 tab PO BID PRN 12/12/17 [Senokot-S] Medical Decision Making - Diagnostics EKG Interpretation: EKG: Complete interpretation has been separately recorded in the [employer] archive. Summary impression: Paced rhythm, rate 88 Imaging Results: Imaging Impressions Chest X-Ray 12/12/17 16:42 Impression: 1. Increasing small to moderate right pleural effusion and small left pleural effusion since 3 days prior. 2. Cardiomegaly. No failure. Procedures: Procedure: Limited transthoracic echocardiogram. A limited transthoracic echocardiogram was performed and interpreted by myself for hypotension Limited transthoracic echocardiogram: The pericardium was visualized and found to be positive for mild pericardial fluid. There is no evidence of tamponade physiology. The study was positive for pericardial effusion. The study demonstrated absence of cardiac activity. The exam was performed by myself. ED Course/Re-evaluation: The patient presents the emergency department as a cardiac alert. I evaluated the patient immediately upon arrival. The patient denies any acute chest pain. His EKG does demonstrate a paced rhythm. Patient was noted to be mildly hypotensive. A limited bedside ultrasound performed by myself did demonstrate a small pericardial effusion. Dr. Price from Cardiology present to the emergency department to assist in the evaluation. I reviewed the patient's past medical records. He had no significant coronary artery disease noted during his recent hospitalization. The patient clinically appears dehydrated. He has been using diuretics as an outpatient secondary to presumed volume overload. Patient did receive IV fluid rehydration in the ED. The patient has no evidence of an acute anemia. I discussed the case with Dr. Price. The patient will be admitted for observation secondary to likely hypovolemia this evening. Consultation was made with Dr. Goins from the hospitalist service. The patient will be admitted to a step-down bed in the setting of his soft blood pressure. Dr. Price will notify cardiothoracic surgery. The patient's primary cardiothoracic surgeon, Dr. Sesay is not on-call this evening. Critical Care Time: Critical care time exclusive of procedures and exclusive of the PA's time was 35 minutes, performed by myself, Steven Cabello MD. The patient presents to the ED with undifferentiated hypotension likely secondary to volume depletion. - Data Points Laboratory Results: Laboratory Results 12/12/17 16:40 12/12/17 16:40 12/12/17 12/12/17 16:40 16:40 WBC 10.95 10^3/uL H 10^3/uL (3.80-9.50) RBC 3.91 10^6/uL L 10^6/uL (4.40-6.38) Hgb 12.0 g/dL L g/dL (13.7-17.5) Hct 36.7 % L % (40.0-51.0) MCV 93.9 fL fL (81.5-99.8) MCH 30.7 pg pg (27.9-34.1) MCHC 32.7 g/dL g/dL (32.4-36.7) RDW 16.2 % H % (11.5-15.2) Plt Count 160 10^3/uL 10^3/uL (150-400) MPV 10.8 fL fL (8.7-11.7) Neut % (Auto) Not Reported Lymph % (Auto) Not Reported [place] % (Auto) Not Reported Eos % (Auto) Not Reported Baso % (Auto) Not Reported Nucleat RBC Rel Count Not Reported Absolute Neuts (auto) Not Reported Absolute Lymphs (auto) Not Reported Absolute Monos (auto) Not Reported Absolute Eos (auto) Not Reported Absolute Basos (auto) Not Reported Absolute Nucleated RBC Not Reported Immature Gran % Not Reported Seg Neutrophils % 84.0 % % Band Neutrophils % 3.0 % % Lymphocytes % 4.0 % % Monocytes % 7.0 % % Eosinophils % 1.0 % % Basophils % 0 % % Metamyelocytes % 0 % % Myelocytes % 1.0 % % Promyelocytes % 0 % % Blast Cells % 0 % % Immature Gran # Not Reported Absolute Seg Neuts 9.20 10^/uL H 10^/uL (1.70-6.50) Absolute Band Neuts 0.33 10^3/uL 10^3/uL (0.00-0.70) Absolute Lymphocytes 0.44 10^3/uL L 10^3/uL (1.00-3.00) Absolute Monocytes 0.77 10^3/uL 10^3/uL (0.30-0.80) Absolute Eosinophils 0.11 10^3/uL 10^3/uL (0.03-0.40) Absolute Basophils 0.00 10^3/uL L 10^3/uL (0.02-0.10) Absolute Metamyelocyte 0.00 10^3/mL 10^3/mL (0.00-0.00) Absolute Myelocytes 0.11 10^3/mL H 10^3/mL (0.00-0.00) Absolute Promyelocytes 0.00 10^3/uL 10^3/uL (0.00-0.00) Absolute Plasma Cells 0.00 10^3/uL 10^3/uL (0.00-0.00) Absolute Blast Cells 0.00 10^3/uL 10^3/uL (0.00-0.00) Plasma Cells % 0 % % Platelet Estimate ADEQUATE (ADEQ) Oval Macrocytes 1+ H Sodium 141 mEq/L mEq/L (135-145) Potassium 4.9 mEq/L mEq/L (3.3-5.0) Chloride 104 mEq/L mEq/L (97-110) Carbon Dioxide 28 mEq/l mEq/l (22-31) Anion Gap 9 mEq/L mEq/L (8-16) BUN 38 mg/dL H mg/dL (7-23) Creatinine 1.4 mg/dL H mg/dL (0.7-1.3) Estimated GFR 49 Glucose 111 mg/dL H mg/dL (70-100) Calcium 8.7 mg/dL mg/dL (8.5-10.4) Medications Given: Discontinued Medications Sodium Chloride (Ns) 500 mls @ 1,500 mls/hr IV ONCE ONE Stop: 12/12/17 17:04 Last Admin: 12/12/17 16:46 Dose: 500 mls Sodium Chloride (Ns) 500 mls @ 1,500 mls/hr IV ONCE ONE Stop: 12/12/17 17:38 Last Admin: 12/12/17 17:20 Dose: 500 mls Sodium Chloride (Ns) 500 mls @ 1,500 mls/hr IV ONCE ONE Stop: 12/12/17 18:22 Last Admin: 12/12/17 18:04 Dose: 500 mls Departure - Departure Disposition: [facility] Inpatient Acute Clinical Impression: Dehydration, Pericardial effusion, Pleural effusion, S/P ascending aortic replacement Condition: Fair
[2017-12-12 17:18] LABS: PLATELET COUNT 160 10^3/uL (150-400)
[2017-12-12] MEDS ORDERED: ALTEPLASE 2 MG VIAL IVP PRN (19:19)
[2017-12-12] MEDS ORDERED: ONDANSETRON DISINTEGRATING 4 MG TAB PO PRN (19:37)
[2017-12-12] MEDS ORDERED: ONDANSETRON 4 MG/2 ML VIAL IVP PRN (19:37)
[2017-12-12] MEDS ORDERED: traMADol 50 MG TAB PO PRN (19:39)
--- NOTE | 2017-12-12 19:49 | PDGENHP ---
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 His hospitalization was complicated by complete heart block for which he required ppm insertion as well as post operative anemia which required multiple unit transfusion. He was also found to have volume overload and was discharged on Lasix 40mg PO BID with the plan to f/u with dr. Amaro next week. He BIBA after experiencing shouler pain and hypotension. In the E.D., Cardiology was consulted and a bedside limited echo was done which showed small pericardial effusion. NO e/o tamponade. NO other details of the findings are available. He was given 1.5 L in the E. D. and I'm am meeting him in the ICU. His BP has stayed mostly in the 70's systolic but as I am entering the room it is noted to be in the 62/45 systolic. He feels weak, but currently denies chest pain or SOB. He does report leg swelling but "it is much better since discharging". He does report that urine may have been a little concentrated and that he is urinating less than before. He has not had any fever. no palpitations. no focal weakness. no n/v/d. He had some constipation until earlier today as he had a suppository which was successful. He denies abd pain. He denies urinary increased frequency or dysuria. EKG did not show ischemic changes CXR is c/w small to moderate right pleural effusion and small left pleural effusion. He is not having short of breath or increased work of breathing. PMHX/PSHX: HTN, ANKLE FX, NOSE THINNING TO R SIDE, TONSILECTOMY. heart valve replacement, PER ABOVE SOC HX: NO T/E/I FMHX: cancer History Information - Allergies/Home Medication List Allergies/Adverse Reactions: ciprofloxacin [From Cipro] Allergy (Verified 12/12/17 16:40) Other-Enter Comments levofloxacin [From Levaquin] Allergy (Verified 12/12/17 16:40) Other-Enter Comments Home Medications: Ascorbic Acid [Vitamin C 500 mg (*)] 500 mg PO DAILY 11/17/17 [Last Taken ] Cholecalciferol Vit D3 [Vitamin D3 (*)] 1,000 units PO DAILY 11/17/17 [Last Taken 12/02/17] [place]-3 Fatty Acids [Fish Oil 1000 mg (*)] 1,000 mg PO DAILY 11/17/17 [Last Taken 12/02/17] Omeprazole 20 mg PO DAILY 11/17/17 [Last Taken 12/02/17] Vitamin B Complex [Vitamin B Complex (OTC)] 1 each PO DAILY 11/17/17 [Last Taken 12/02/17] Sennosides/Docusate Sodium [Senokot-S] 1 - 2 tab PO BID PRN 12/12/17 [Last Taken Unknown] I have personally reviewed and updated: medical history, social history - Social History Smoking Status: Never smoked Review of Systems Review of Systems: ROS: 10pt was reviewed & negative except for what was stated in HPI & below Physical Exam Physical Exam: Temp Pulse Resp BP Pulse Ox 36.8 C 90 31 H 62/45 L 96 12/12/17 19:06 12/12/17 19:06 12/12/17 19:06 12/12/17 19:06 12/12/17 19:06 O2 (L/minute) 2 Constitutional: no apparent distress Eyes: PERRL, EOMI Ears, Nose, Mouth, Throat: dry mucous membranes Cardiovascular: regular rate and rhythym, edema (1+ bilateral), No JVD Respiratory: no respiratory distress, reduced air movement, No expiratory wheeze , No inspiratory crackles Gastrointestinal: normoactive bowel sounds, soft, non-tender abdomen, No tenderness, No guarding, No rebound, No distension Skin: warm Neurologic: AAOx3 Psychiatric: interacting appropriately, not anxious, not encephalopathic Lymph, Heme, Immunologic: No petechiae Lab Data & Imaging Review 12/12/17 16:40 12/12/17 16:40 WBC 10.95 10^3/uL (3.80-9.50) H 12/12/17 16:40 RBC 3.91 10^6/uL (4.40-6.38) L 12/12/17 16:40 Hgb 12.0 g/dL (13.7-17.5) L 12/12/17 16:40 Hct 36.7 % (40.0-51.0) L 12/12/17 16:40 MCV 93.9 fL (81.5-99.8) 12/12/17 16:40 MCH 30.7 pg (27.9-34.1) 12/12/17 16:40 MCHC 32.7 g/dL (32.4-36.7) 12/12/17 16:40 RDW 16.2 % (11.5-15.2) H 12/12/17 16:40 Plt Count 160 10^3/uL (150-400) 12/12/17 16:40 MPV 10.8 fL (8.7-11.7) 12/12/17 16:40 Neut % (Auto) Not Reported 12/12/17 16:40 Lymph % (Auto) Not Reported 12/12/17 16:40 Stewart % (Auto) Not Reported 12/12/17 16:40 Eos % (Auto) Not Reported 12/12/17 16:40 Baso % (Auto) Not Reported 12/12/17 16:40 Nucleat RBC Rel Count Not Reported 12/12/17 16:40 Absolute Neuts (auto) Not Reported 12/12/17 16:40 Absolute Lymphs (auto) Not Reported 12/12/17 16:40 Absolute Monos (auto) Not Reported 12/12/17 16:40 Absolute Eos (auto) Not Reported 12/12/17 16:40 Absolute Basos (auto) Not Reported 12/12/17 16:40 Absolute Nucleated RBC Not Reported 12/12/17 16:40 Immature Gran % Not Reported 12/12/17 16:40 Seg Neutrophils % 84.0 % 12/12/17 16:40 Band Neutrophils % 3.0 % 12/12/17 16:40 Lymphocytes % 4.0 % 12/12/17 16:40 Monocytes % 7.0 % 12/12/17 16:40 Eosinophils % 1.0 % 12/12/17 16:40 Basophils % 0 % 12/12/17 16:40 Metamyelocytes % 0 % 12/12/17 16:40 Myelocytes % 1.0 % 12/12/17 16:40 Promyelocytes % 0 % 12/12/17 16:40 Blast Cells % 0 % 12/12/17 16:40 Immature Gran # Not Reported 12/12/17 16:40 Absolute Seg Neuts 9.20 10^/uL (1.70-6.50) H 12/12/17 16:40 Absolute Band Neuts 0.33 10^3/uL (0.00-0.70) 12/12/17 16:40 Absolute Lymphocytes 0.44 10^3/uL (1.00-3.00) L 12/12/17 16:40 Absolute Monocytes 0.77 10^3/uL (0.30-0.80) 12/12/17 16:40 Absolute Eosinophils 0.11 10^3/uL (0.03-0.40) 12/12/17 16:40 Absolute Basophils 0.00 10^3/uL (0.02-0.10) L 12/12/17 16:40 Absolute Metamyelocyte 0.00 10^3/mL (0.00-0.00) 12/12/17 16:40 Absolute Myelocytes 0.11 10^3/mL (0.00-0.00) H 12/12/17 16:40 Absolute Promyelocytes 0.00 10^3/uL (0.00-0.00) 12/12/17 16:40 Absolute Plasma Cells 0.00 10^3/uL (0.00-0.00) 12/12/17 16:40 Absolute Blast Cells 0.00 10^3/uL (0.00-0.00) 12/12/17 16:40 Plasma Cells % 0 % 12/12/17 16:40 Platelet Estimate ADEQUATE (ADEQ) 12/12/17 16:40 Oval Macrocytes 1+ H 12/12/17 16:40 Sodium 141 mEq/L (135-145) 12/12/17 16:40 Potassium 4.9 mEq/L (3.3-5.0) 12/12/17 16:40 Chloride 104 mEq/L (97-110) 12/12/17 16:40 Carbon Dioxide 28 mEq/l (22-31) 12/12/17 16:40 Anion Gap 9 mEq/L (8-16) 12/12/17 16:40 BUN 38 mg/dL (7-23) H 12/12/17 16:40 Creatinine 1.4 mg/dL (0.7-1.3) H 12/12/17 16:40 Estimated GFR 49 12/12/17 16:40 Glucose 111 mg/dL (70-100) H 12/12/17 16:40 Calcium 8.7 mg/dL (8.5-10.4) 12/12/17 16:40 Assessment & Plan Assessment: #Severe Hypotension with possible early shock #Dehydration #mild pericardial effusion #bilateral pleural effusion #s/p ascending aorta replacement and aortic valve replacement #recent complete heart block, s/p ppm #postoperative anemia with values much improved, possible from dehydration Plan: -ICU -Will provide additional IVF bolus now -May need pressors pending response -PICC line -Will d/w Dr. Price -TTE-complete -The etiology is likely hypovolemia, will determine response to fluid. Dont think that there is an infectious process, will check pc. -Mild leukocytosis noted -repeat labs in a.m -SCD for now, in case procedure is needed -Telemetry -Full Code confirmed at bedside total critical care time is 65 minutes
[2017-12-12 20:49] LABS: INR 1.46 (0.83-1.16); PROTIME(PATIENT) 17.9 SEC (12.0-15.0)
[2017-12-12] MEDS ORDERED: METOPROLOL TARTRATE 25 MG TAB PO SCH (21:00)
[2017-12-12] MEDS: NOREPINEPHRINE BITARTRATE 4 MG in NS 500 ML IV SCH (22:20)
[2017-12-12] MEDS: PIPERACILLIN/TAZO 3.375 GM/DEX 50 ML IV SCH (23:01)
[2017-12-13] MEDS: LORazepam 0.5 MG TAB PO PRN ×2 (00:52→01:35)
[2017-12-13] MEDS: PIPERACILLIN/TAZO 3.375 GM/DEX 50 ML IV SCH ×2 (04:10→10:58)
[2017-12-13 05:05] LABS: PLATELET COUNT 209 10^3/uL (150-400)
--- NOTE | 2017-12-13 08:51 | SOAPPROG ---
SOAP Progress Note Assessment/Plan: Assessment: Plan: Subjective: Admitted last pm with SOB and hypotension. He is 10 days s/p AVR/ASC aorta, pacer. Pt hypotensive and started on DA and Levo and given fluid boluses 2L NS Now on Levo 5ug and DA 8ug UO 150cc since Cath placed Cr up to 2.0 and BUN 43 K+ 5.6 Hct 34.7% wbc up to 21,410 CXR - RLL atel and small effusion ECHO - thick LV with good LV fxn. Smallish post pericardial effusion. LV underfilled Wound clean Lungs rhonchi right base Cor RRR 08/02 syst m No ankle edema. Agree with antibiotics pending culture. Needs more fluid and decrease DA down to renal Objective: Vital Signs Temp Pulse Resp BP Pulse Ox 37.3 C 79 18 106/72 92 12/13/17 07:00 12/13/17 07:00 12/13/17 07:00 12/13/17 07:00 12/13/17 07:00 Laboratory Results 12/13/17 04:15 12/13/17 04:15 12/12/17 12/13/17 12/14/17 05:59 05:59 05:59 Intake Total 2808 Output Total 130 Balance 2678 PT 17.9 SEC (12.0-15.0) H 12/12/17 19:39 INR 1.46 (0.83-1.16) H 12/12/17 19:39 ICD10 Worksheet Patient Problems: Problems Problem Status Onset Dehydration Acute Pericardial effusion Acute Pleural effusion Acute S/P ascending aortic replacement Acute ~12/04/17 Acute blood loss anemia Acute Coronary atherosclerosis Acute 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
[2017-12-13] MEDS ORDERED: ALBUMIN 5% 500 ML IV ONE (09:00)
[2017-12-13] MEDS ORDERED: AMIODARONE HCL 200 MG TAB PO SCH (09:00)
[2017-12-13] MEDS: ASPIRIN 81 MG CHEWABLE TAB PO SCH (09:10)
[2017-12-13] MEDS: OMEGA-3 FATTY ACIDS 1,000 MG CAP PO SCH (09:10)
[2017-12-13] MEDS: PANTOPRAZOLE SODIUM 40 MG TAB PO SCH (09:10)
[2017-12-13] MEDS: CHOLECALCIFEROL VIT D3 1,000 UNITS TAB PO SCH (09:10)
[2017-12-13] MEDS: ASCORBIC ACID 500 MG TAB PO SCH (09:10)
[2017-12-13] MEDS ORDERED: SODIUM POLY SULF 15 GM/60 ML BOTTLE PO ONE (10:23)
--- NOTE | 2017-12-13 10:27 | HOSPPROG ---
Hospitalist Progress Note Assessment/Plan: DIAGNOSES: # Severe Shock with acute organ injury, likely septic etiology though w the PRL level measured the hypotension may be aggravated by prior diuresis or other factors # Acute Kidney Injury due to hypotension/shock * consider ATN, will check urine for signs # acute hepatocellular necrosis, suspect due to shock but will assess for other possible etiologies # Acute Hyperkalemia # Infectious Sources could include Pneumonia (abnl CXR suggestive), vascular as he is 2 weeks out from placement of prosthetic aortic root and arch grafts, also with elevated liver enzymes consider possible intra- abdominal though this is more likely caused by the shock # Dehydration s/p diuresis # mild pericardial effusion # bilateral pleural effusion # s/p aortic root and arch prosthetic grafts December 04 # recent complete heart block, s/p ppm placement earlier this month # postoperative anemia with values improved PLANS: -continue current antibiotics for coverage of potential hospital-acquired pneumonia, however will add vancomycin for that coverage as well as to cover possible staff vascular and graft infection -continue pressor and fluid support -follow renal and liver function very closely -treat hyperkalemia with some Kayexalate and recheck, follow closely In addition to hospitalist rounds of so this patient on multidisciplinary ICU rounds Also reviewed in detail with Dr. 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: Sinus Exam: alert oriented skin warm dry color ok resps not labored Sternotomy and pacemaker wounds look good, no fluid collection around his pacer generator lungs some rhonchi right greater than left heart regular abd soft nondistended nontender, bowel sounds present limbs warm, no edema iv site ok Laboratory data: White blood cell count now to 21,000, slightly lower hematocrit at 11,000 Creatinine was up to 2.0 this morning on a repeat later in the day at 1.8 Potassium is up at 5.6 AST 425, ALT 280, with mild elevation of bilirubin but normal alkaline phosphatase Microbiology data: All blood and urine cultures currently pending with no growth noted from last night Objective: Vital Signs Temp Pulse Resp BP Pulse Ox 37.2 C 79 26 H 89/63 L 100 12/13/17 09:00 12/13/17 10:00 12/13/17 10:00 12/13/17 10:00 12/13/17 10:00 Laboratory Results 12/13/17 04:15 12/13/17 04:15 12/12/17 12/13/17 12/14/17 06:59 06:59 06:59 Intake Total 2808 Output Total 130 Balance 2678 PT 17.9 SEC (12.0-15.0) H 12/12/17 19:39 INR 1.46 (0.83-1.16) H 12/12/17 19:39 - Time Spent With Patient Time Spent with Patient: greater than 35 minutes Time Spent with Patient: Greater than 35 minutes spent on this patients care, greater than 50% of time spent counseling, educating, and coordinating care regarding the above mentioned plan. 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
[2017-12-13] MEDS: NOREPINEPHRINE BITARTRATE 4 MG in NS 500 ML IV SCH (10:31)
[2017-12-13] MEDS ORDERED: VANCOMYCIN 1 GM in NS 250 ML IV SCH (12:00)
[2017-12-13] MEDS: PIPERACILLIN/TAZO 2.25 GM/DEX 50 ML IV SCH ×2 (12:06→17:55)
--- NOTE | 2017-12-13 12:37 | GCON ---
[f rep st] CONSULTATION PULMONARY/CRITICAL CARE CONSULTATION DATE OF CONSULTATION: 12/13/2017 REFERRING PHYSICIAN: Mitesh Waters MD REASON FOR REFERRAL: Evaluation and management of hypotension and sepsis. HISTORY: The patient is an 82-year-old male who recently had an aortic aneurysm and aortic valve rep air, just discharged a few days ago. His hospitalization was complicated by complete heart block, fo r which a pacemaker was placed. He also had postoperative anemia and had several blood transfusions. He was discharged on Lasix for presumed fluid overload. He had been at [facility] and was bro ught in to the hospital via ambulance after experiencing shoulder pain and hypotension. He had a sys tolic blood pressure in the 60s-70s. An echocardiogram was done in the emergency department that jose manuel wed minimal small pericardial effusion, no tamponade, and suggested hypovolemia more than fluid overl oad. He was given 1.5 L of fluid in the emergency department and continued fluid on coming upstairs. He has been placed on norepinephrine and dopamine in order to maintain blood pressure. He denies a ny fevers, focal weakness. He has had some irregular small bowel movements, but no marylin constipatio n. He denies abdominal pain. He has not had dysuria. He denies cough or shortness of breath. PAST MEDICAL HISTORY: 1. Status post aortic valve and root replacement. 2. History of tonsillectomy. 3. Hypertension. MEDICATIONS: At the time of admission include ascorbic acid, omeprazole, amiodarone, furosemide, met oprolol, tramadol, aspirin. ALLERGIES: Ciprofloxacin and levofloxacin. SOCIAL HISTORY: The patient has never smoked. FAMILY HISTORY: Unremarkable. REVIEW OF SYSTEMS: A 10-point review of systems adds nothing to the History of Present Illness. PHYSICAL EXAMINATION: GENERAL: The patient is awake, alert, and in no acute distress. VITAL SIGNS: Blood pressure is 109/71, with a heart rate of 97. He is on dopamine at 8 and norepinephrine at 5. Oxygen saturations are 97% on 2 L. He is afebrile. HEENT: Normocephalic and atraumatic. No icte isabel. NECK: No JVD. Trachea is midline. CHEST: He is status post sternotomy, with scattered ecchy alexandra, but a clean wound. LUNGS: Clear to auscultation. CARDIAC: Regular rate and rhythm, without murmur. No edema. ABDOMEN: Soft, nontender. Bowel sounds are present. EXTREMITIES: No clubbing , cyanosis. LABORATORY DATA: White blood count is 21.4, up from 11.0 at admission. The differential is normal. Hemoglobin is 11.3, and platelet count is 209. An INR is 1.5. A lactate is 2.7. Sodium is 5.6. C reatinine is 2.0, up from 1.4 at admission. A procalcitonin is 0.83. Urinalysis is unremarkable. A chest x-ray shows an area of left base consolidation and some patchy right basilar infiltrates. Irina ges are reviewed by me. ASSESSMENT: 1. Hypotension. This occurs in the setting of diuresis, as well as an elevated white blood count, m ildly elevated procalcitonin, and an elevated lactate. I think the most likely cause of this would b e infection with dehydration related to Lasix. The patient received several liters of fluids but is still requiring some pressors in order to maintain adequate blood pressure. He has been started on Z osyn empirically. Given that this could be a nosocomial infection, expansion of antibiotics to inclu de methicillin-resistant Staphylococcus aureus would be reasonable. 2. Pulmonary infiltrates. These are seen in the bases and could represent a pneumonia, including as piration pneumonia. Pulmonary edema is less likely. 3. Acute kidney injury. The patient's creatinine is markedly increased, most likely due to ATN or p rerenal status. RECOMMENDATIONS: 1. Check NICOM monitor for fluid responsiveness. 2. Obtain a good 2-view chest x-ray. 3. Repeat lactate and a chemistry group to assess for any liver dysfunction related to hypotension. 4. Add vancomycin while awaiting cultures. /[id number]/MODL
[2017-12-13] MEDS ORDERED: LIDOCAINE 1% 300 MG/30 ML SDV ONE (15:35)
[2017-12-14] MEDS: NOREPINEPHRINE BITARTRATE 4 MG in NS 500 ML IV SCH
[2017-12-14 05:27] LABS: PLATELET COUNT 153 10^3/uL (150-400)
[2017-12-14] MEDS: PIPERACILLIN/TAZO 2.25 GM/DEX 50 ML IV SCH ×4 (05:33→19:13)
[2017-12-14] MEDS ORDERED: ALBUMIN 5% 500 ML IV ONE (08:05)
--- NOTE | 2017-12-14 09:10 | ASMTCMCOM ---
CM Note CM Note Notes: Patient admitted with SOB and hypotension. He is 10 days s/p AVR/ASC aorta, pacemaker placement. He was discharged from [facility] on 12/10 to [facility]. Patient is . He normally lives independently with his but has been rehabbing at [facility], per above. I called [facility]; they will accept him back when medicall stable. Date Signed: 12/14/2017 09:09 AM Electronically Signed By:Courtney Samuel RN
[2017-12-14] MEDS: ASPIRIN 81 MG CHEWABLE TAB PO SCH (09:24)
[2017-12-14] MEDS: PANTOPRAZOLE SODIUM 40 MG TAB PO SCH (09:24)
[2017-12-14] MEDS: ASCORBIC ACID 500 MG TAB PO SCH (09:24)
[2017-12-14] MEDS: OMEGA-3 FATTY ACIDS 1,000 MG CAP PO SCH (09:24)
[2017-12-14] MEDS: CHOLECALCIFEROL VIT D3 1,000 UNITS TAB PO SCH (09:24)
--- NOTE | 2017-12-14 09:59 | SOAPPROG ---
SOAP Progress Note Assessment/Plan: Assessment: Plan: Subjective: Afebrile VSS BP 115 syst on 3ug Levo Feels better Hct 30.9% Cr 1.7 BUN45 Lungs clear Cor RRR w/o m Wounds clean Stable. Wean off DA Objective: Vital Signs Temp Pulse Resp BP Pulse Ox 37.1 C 90 22 H 118/66 94 12/14/17 09:00 12/14/17 09:00 12/14/17 09:00 12/14/17 09:00 12/14/17 09:00 Laboratory Results 12/14/17 05:00 12/14/17 05:00 12/13/17 12/14/17 12/15/17 05:59 05:59 05:59 Intake Total 2808 2830 Output Total 130 750 Balance 2678 2080 PT 17.9 SEC (12.0-15.0) H 12/12/17 19:39 INR 1.46 (0.83-1.16) H 12/12/17 19:39 ICD10 Worksheet Patient Problems: Problems Problem Status Onset Dehydration Acute Pericardial effusion Acute Pleural effusion Acute S/P ascending aortic replacement Acute ~12/04/17 Acute blood loss anemia Acute Coronary atherosclerosis Acute 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
--- NOTE | 2017-12-14 10:15 | HOSPPROG ---
Hospitalist Progress Note Assessment/Plan: DIAGNOSES: # Severe Shock with acute organ injury, likely septic etiology though w the PRL level measured the hypotension may be aggravated by prior diuresis or other factors * Now with stable pressures off pressor support * Is certainly volume replete and actually with some increase in peripheral edema # suspect pneumonia, either aspiration or hospital acquired, as the infection source, but consider possible endovascular source with new grafts in place * Chest x-ray suggesting possible pneumonia at lower lobes * Fevers and white blood cell count improving, Cultures pending at this time * Current covered Zosyn and Vanco # acute hypoxemic respiratory failure * remains fairly tachypneic # Acute Kidney Injury due to hypotension/shock * consider mild ATN; * improved but not resolved no change in creatinine today from yesterday, 1.7, baseline 1.1 # acute mild hepatocellular necrosis, suspect due to shock # Acute Hyperkalemia * resolved after kayexalate # s/p prosthetic aortic valve and grafts to aortic root and arch December 04 * Current echo EF 60%, some diastolic dysfunction, mild to moderate pleural pericardial effusion # recent complete heart block, s/p ppm placement earlier this month # postoperative anemia improving after recent surgery # marked deconditioning and weakness, unable to walk at present PLANS: -continue current antibiotics; if no staph in cultures by tomorrow am would stop vanco -follow bp's closely as pressors now stopped -repeat chest x-ray in morning -would not diurese at this time, however if respirations worst may need to reassess for increasing effusion or any development of pulmonary edema and consider some diuresis; once infection and renal and liver issues all resolved diuresis will probably be very useful for him -follow renal and liver function very closely -PT and OT In addition to hospitalist rounds I visited this patient on multidisciplinary ICU rounds Also reviewed in detail with Dr. Familia Montelongo SUBJECTIVE: Still extremely weak, did some dyspnea at rest in bed on oxygen No pain OBJECTIVE Vitals reviewed: Blood pressures are now stable with pressor just turned off, still w some tachypnea/tachycardia, no fever today Label Sewer, my review: Sinus Exam: alert oriented skin warm dry color ok resps a bit more labored today and still tachypneic Sternotomy and pacemaker wounds look good, no fluid collection around his pacer generator lungs quite diminished with poor inspiration, some rhonchi right greater than left heart regular abd soft nondistended nontender, bowel sounds present limbs warm, some edema present in both legs iv site ok Laboratory data: WBC 14, HG 10 Creat unchanged from yest pm at 1.7, lytes ok Liver enzymes and bili still high but improved from yest Microbiology data: All blood and urine cultures currently pending with no growth yet Repeat CXR yest afternoon, I reviewed images: Little change from prior xray, still w bibasilar density, suspect infiltrate and possibly small effusions Objective: Vital Signs Temp Pulse Resp BP Pulse Ox 37.1 C 90 22 H 118/66 94 12/14/17 09:00 12/14/17 09:00 12/14/17 09:00 12/14/17 09:00 12/14/17 09:00 Laboratory Results 12/14/17 05:00 12/14/17 05:00 12/13/17 12/14/17 12/15/17 06:59 06:59 06:59 Intake Total 2808 2830 Output Total 130 750 Balance 2678 2080 PT 17.9 SEC (12.0-15.0) H 12/12/17 19:39 INR 1.46 (0.83-1.16) H 12/12/17 19:39 - Time Spent With Patient Time Spent with Patient: greater than 35 minutes Time Spent with Patient: Greater than 35 minutes spent on this patients care, greater than 50% of time spent counseling, educating, and coordinating care regarding the above mentioned plan. 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
[2017-12-14] MEDS ORDERED: PHENAZOPYRIDINE HCL 100 MG TAB PO ONE (11:05)
--- NOTE | 2017-12-14 11:09 | PDINTPN ---
Barrel Racer Progress Note Assessment/Plan: Assessment: Shock: Improved. Likely a combination of redistributive due to infection and hypovolemia from diuresis. Normotensive off pressors. Sepsis: Suggested by elevated lactate, procalcitonin, WBC, shock. Pulmonary most likely source with worsened CXR compared to last hospitalization. On Zosyn/ Vanco. Endovascular source less likely, cultures negative to date. JASMINE: Urine output improved. Cr down but not back to baseline of 1.1. Hyperkalemia: Normalized. Dysuria: Likely due to urethral trauma from Locke. No signs of UTI on UA Plan: Continue antibiotics while cultures pending. Can stop Vanco tomorrow if cultures negative. Trial of Pyridium for dysuria. B&O suppository if that doesn't help. Tx to PCU 12/14/17 11:25 Subjective: Strength improved a bit. C/O urethral pain with urination since locke removed. Objective: Vital Signs Temp Pulse Resp BP Pulse Ox 37.1 C 91 28 H 107/65 94 12/14/17 09:00 12/14/17 10:00 12/14/17 10:00 12/14/17 10:00 12/14/17 10:00 Laboratory Results 12/14/17 05:00 12/14/17 05:00 12/13/17 12/14/17 12/15/17 05:59 05:59 05:59 Intake Total 2808 2830 Output Total 130 750 250 Balance 2678 2080 -250 PT 17.9 SEC (12.0-15.0) H 12/12/17 19:39 INR 1.46 (0.83-1.16) H 12/12/17 19:39 Physical Exam - Physical Exam General Appearance: alert, no apparent distress EENT: normal ENT inspection Neck: normal inspection Respiratory: crackles (bases) Cardiac/Chest: regular rate, rhythm, No edema Abdomen: normal bowel sounds, non-tender Skin: normal color, warm/dry Extremities: normal inspection Neuro/Psych: alert, normal mood/affect, oriented x 3 ICD10 Worksheet Patient Problems: Problems Problem Status Onset Dehydration Acute Pericardial effusion Acute Pleural effusion Acute S/P ascending aortic replacement Acute ~12/04/17 Acute blood loss anemia Acute Coronary atherosclerosis Acute 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
--- NOTE | 2017-12-14 11:09 | ECHO ---
[email or web address] [address] [address] Main: [phone] Fax: Transthoracic Echocardiogram Name: ANH HOLBROOK MR#: [id number] Study Date: 12/12/2017 Study Time: 08:12 PM Date of : 1935 Age: 82 year(s) Height: 162.6 cm (64 in.) Weight: 62.14 kg (137 lb.) BSA: 1.67 m2 Gender: Male Examination: Echo Indication: Image Quality: Adequate Contrast: Requested by: Raúl Price BP: 64 mmHg/49 mmHg Heart Rate: Rhythm: Indication: Procedure Staff Health Information Technologist: Awa Whitley [facility] Reading Physician: Yony Bunch MD Requesting Provider: Conclusions: Mild concentric LV hypertrophy. Diastolic dysfunction is present. . Dyskinesis noted due to recent cardiac surgery versus pacing artifact. There is a pacemaker lead noted in the right ventricle. The mitral valve is normal in appearance and function. Mild mitral valve regurgitation is present. The aortic valve is a bioprosthesis. Normal functioning aortic valve prosthesis. The orifice motion of the prosthetic aortic valve is normal. Mild to moderate tricuspid valve regurgitation. Right ventricular systolic pressure measures 22mmHg. There is no pulmonic regurgitation seen. Normal size ascending aorta measuring 2.5 cm. The IVC is mildly dilated. Small to moderate pericardial effusion. There is a pleural effusion present. Measurements: Chambers Valvular Assessment AV/MV Valvular Assessment TV/PV Normal Normal Normal Name Value Range Name Value Range Name Value Range Ao Brittny (2D): 2.7 cm (1.4 cm-2.6 AV meanP mmHg ( - ) TR Vmax: 2.09 mm/s ( - ) cm) RONAD (VTI): 1.2 cm ( - ) TR PGmax: 17 mmHg ( - ) IVSd (2D): 1.1 cm (0.6 cm-1.1 MV E Vmax: 0.79 m/s ( - ) syst. PAP: 22 mmHg ( - ) cm) MV A Vmax: 0.30 m/s ( - ) PV Vmax: 0.58 m/s (0.6 m/s-0.9 LVDd (2D): 4.0 cm (4.2 cm-5.9 MV E/A: 2.63 ( - ) m/s) cm) MV PHT: 0.062 s ( - ) PV PGmax: 1 mmHg ( - ) LVDs (2D): 2.6 cm (2.1 cm-4 cm) MVA (PHT): 3.5 s ( - ) Patient: ANH HOLBROOK Study Date: 12/12/2017 Page 1 of 3 08:12 PM LVPWd (2D): 1.2 cm (0.6 cm-1 cm) LVOTd 1.8 cm 1.8 cm mm LVEF (BP): 60 % (>=55 %) RVDd(2D): 2.5 cm (1.9 cm-3.8 cmmm) Continued Measurements: Chambers Valvular Assessment AV/MV Valvular Assessment TV/PV Name Value Name Value Name Value LADs: 3.6 cm MV DecTime: 176 m/s CVP (est.): 5 mmHg LADs Lon.0 cm MV E' Septal: 0.06 m/s LA Area: 17.3 cm2 MV E/E' Septal: 12.70 RA Area: 14.8 cm2 MV E/E' Lateral: 11.00 Additional Vessels Name Value Ao Ascendin.5 cm Inferior Vena Cava: 2.4 cm Findings: Left Ventricle: Normal size left ventricle. Mild concentric LV hypertrophy. Normal global systolic LV function. EF is 60 %. No regional wall motion abnormality. Diastolic dysfunction is present. . Dyskinesis noted due to recent cardiac surgery versus pacing artifact. Right Ventricle: Normal size right ventricle. Normal RV function. There is a pacemaker lead noted in the right ventricle. Left Atrium: The left atrium is normal in size. Right Atrium: The right atrium is normal in size. Mitral Valve: The mitral valve is normal in appearance and function. Mild mitral valve leaflet calcification is present. Mild mitral valve regurgitation is present. No mitral stenosis is present. Aortic Valve: The aortic valve is a bioprosthesis. Normal functioning aortic valve prosthesis. The prosthetic aortic valve is normal. The orifice motion of the prosthetic aortic valve is normal. No prosthesis regurgitation. Tricuspid Valve: The tricuspid valve is normal in appearance and function. Mild to moderate tricuspid valve regurgitation. The pulmonary artery pressure is normal. Right ventricular systolic pressure measures 22mmHg. Pulmonic Valve: The pulmonic valve is normal in appearance and function. There is no pulmonic regurgitation seen. Aorta: The aorta is normal. Normal size aortic root measuring 2.7 cm. Normal size ascending aorta measuring 2.5 cm. IVC: The IVC is mildly dilated. Pericardium: Small to moderate pericardial effusion. There is a pleural effusion present. Exam Comments: (No Signature Object) Patient: ANH HOLBROOK Study Date: 12/12/2017 Page 2 of 3 08:12 PM Patient: ANH HOLBROOK Study Date: 12/12/2017 Page 3 of 3 08:12 PM [id number]
[2017-12-14] MEDS: MELATONIN 3 MG TAB PO SCH (20:36)
[2017-12-15] MEDS: PIPERACILLIN/TAZO 2.25 GM/DEX 50 ML IV SCH ×4 (00:09→18:11)
[2017-12-15] MEDS ORDERED: ALBUMIN 5% 500 ML IV ONE (01:44)
[2017-12-15 04:23] LABS: PLATELET COUNT 140 10^3/uL (150-400)
[2017-12-15] MEDS: ASCORBIC ACID 500 MG TAB PO SCH (08:33)
[2017-12-15] MEDS: CHOLECALCIFEROL VIT D3 1,000 UNITS TAB PO SCH (08:33)
[2017-12-15] MEDS: OMEGA-3 FATTY ACIDS 1,000 MG CAP PO SCH (08:33)
[2017-12-15] MEDS: PANTOPRAZOLE SODIUM 40 MG TAB PO SCH (08:33)
[2017-12-15] MEDS: ASPIRIN 81 MG CHEWABLE TAB PO SCH (08:33)
[2017-12-15] MEDS ORDERED: BISACODYL 10 MG SUPP PR PRN (12:21)
[2017-12-15] MEDS ORDERED: MAGNESIUM HYDROXIDE 30 ML UDCUP PO PRN (12:21)
[2017-12-15] MEDS ORDERED: POLYETHYLENE GLYCOL 3350 17 GM PKT PO PRN (12:21)
[2017-12-15] MEDS ORDERED: LACTULOSE 20 GM/30 ML UDCUP PO PRN (12:21)
[2017-12-15] MEDS ORDERED: FUROSEMIDE 40 MG/4 ML VIAL IVP ONE (13:14)
--- NOTE | 2017-12-15 13:27 | ASMTCMCOM ---
CM Note CM Note Notes: I spoke with patient at length about discharge planning. He was not happy with his care at [facility] (he was there for 2 days [employer]). I gave him a list of SNF and suggested other facilities in the area. His Thai will visit them and report back to us. I also called [facility] and explained patient's disatisfaction. They will reach out to him, per my request. Case Management will follow for SNF discharge planning. Date Signed: 12/15/2017 01:26 PM Electronically Signed By:Courtney Samuel RN
--- NOTE | 2017-12-15 16:15 | HOSPPROG ---
Hospitalist Progress Note Assessment/Plan: * Septic shock - off pressors - suspect aspiration PNA as source * Aspiration pneumonia -IV Zosyn * Acute respiratory failure * ARF due to shock - improved -baseline creatinine 1.1 -renal US * Volume overload with scrotal edema -IV lasix x 1 today * Increased LFT -likely due to shock -check abd US rule out GB disease * Hyperkalemia - resolved * Recent bioprosthetic aortic valve and aortic root graft (12/04) -per Dr. Amaro - amiodarone x 1 month + PO metoprolol * Complete heart block s/p PPM * Moderate pericardial effusion -check f/u ECHO * Prostate ca * GERD/Barretts Subjective: SOB, swollen scrotum Objective: Vital Signs Temp Pulse Resp BP Pulse Ox 36.6 C 93 20 115/77 95 12/15/17 14:11 12/15/17 14:11 12/15/17 14:11 12/15/17 14:11 12/15/17 14:11 Microbiology 12/12/17 22:30 Urine Culture - Final Unspecified Laboratory Results 12/15/17 04:00 12/15/17 04:00 12/14/17 12/15/17 12/16/17 05:59 05:59 05:59 Intake Total 2830 1276 Output Total 750 350 200 Balance 2080 926 -200 PT 17.9 SEC (12.0-15.0) H 12/12/17 19:39 INR 1.46 (0.83-1.16) H 12/12/17 19:39 Old chart reviewed - including DC summary from Dr. Amaro - needs amiodarone and metoprolol CXR viewed, my personal interpretation is - CHF - Physical Exam Constitutional: appears nourished, not in pain, No no apparent distress Cardiovascular: regular rate and rhythym, no murmur, rub, or gallop, edema (4+) Respiratory: inspiratory crackles, respiratory distress, No expiratory wheeze, No rhonchi Gastrointestinal: normoactive bowel sounds, soft, non-tender abdomen, no palpable masses Skin: no rashes or abrasions, no fluctuance, no induration Neurologic: AAOx3, sensation intact bilaterally Psychiatric: interacting appropriately, not anxious, not encephalopathic, thought process linear ICD10 Worksheet Patient Problems: Problems Problem Status Onset Dehydration Acute Pericardial effusion Acute Pleural effusion Acute S/P ascending aortic replacement Acute ~12/04/17 Acute blood loss anemia Acute Coronary atherosclerosis Acute 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
[2017-12-15] MEDS: ACETAMINOPHEN 325 MG TAB PO PRN (18:11)
[2017-12-15] MEDS: SENNOSIDES/DOCUSATE SODIUM TAB PO SCH (20:16)
[2017-12-15] MEDS: MELATONIN 3 MG TAB PO SCH (20:16)
[2017-12-15] MEDS ORDERED: METOPROLOL TARTRATE 25 MG TAB PO SCH (21:00)
[2017-12-16] MEDS: PIPERACILLIN/TAZO 2.25 GM/DEX 50 ML IV SCH ×3 (00:35→14:02)
[2017-12-16 05:46] LABS: PLATELET COUNT 154 10^3/uL (150-400)
[2017-12-16] MEDS ORDERED: PROTOCOL POTASSIUM 1 DOSE MISC PRN (07:46)
[2017-12-16] MEDS ORDERED: POTASSIUM CL 20 MEQ TAB PO ONE ×2 (07:48→16:23)
[2017-12-16] MEDS: FUROSEMIDE 100 MG/10 ML VIAL IVP SCH ×3 (10:03→16:55)
[2017-12-16] MEDS: SENNOSIDES/DOCUSATE SODIUM TAB PO SCH ×2 (10:28→20:36)
[2017-12-16] MEDS: ASPIRIN 81 MG CHEWABLE TAB PO SCH (10:29)
[2017-12-16] MEDS: AMIODARONE HCL 200 MG TAB PO SCH (10:29)
[2017-12-16] MEDS: ENOXAPARIN 40 MG/0.4 ML SYR SC SCH (10:29)
[2017-12-16] MEDS: PANTOPRAZOLE SODIUM 40 MG TAB PO SCH (10:29)
[2017-12-16] MEDS: CHOLECALCIFEROL VIT D3 1,000 UNITS TAB PO SCH (10:30)
[2017-12-16] MEDS: ASCORBIC ACID 500 MG TAB PO SCH (10:30)
[2017-12-16] MEDS: OMEGA-3 FATTY ACIDS 1,000 MG CAP PO SCH (10:30)
--- NOTE | 2017-12-16 11:17 | ECHO ---
[email or web address] [address] [address] Main: [phone] Fax: Transthoracic Echocardiogram Name: ANH HOLBROOK MR#: [id number] Study Date: 12/16/2017 Study Time: 08:01 AM Date of : 1935 Age: 82 year(s) Height: 160 cm (63 in.) Weight: 68.49 kg (151 lb.) BSA: 1.72 m2 Gender: Male Examination: Limited Echo Indication: EVALUATE PERICARDIAL EFFUSION Image Quality: Adequate Contrast: Requested by: Mily Ramos BP: 99 mmHg/66 mmHg Heart Rate: Rhythm: Indication: EVALUATE PERICARDIAL EFFUSION Procedure Staff Supervisor [employer]: Awa Whitley RDCS Reading Physician: Ancelmo Mckeon MD Requesting Provider: Conclusions: Moderate pericardial effusion without echo evidence of tamponade. Ejection fraction 55-60% with Regional wall motion abnormalities as described above. Pacemaker lead in the right ventricle. Aortic valve Bioprosthetic. Mild mitral regurgitation. Measurements: Chambers Valvular Assessment AV/MV Valvular Assessment TV/PV Normal Normal Normal Name Value Range Name Value Range Name Value Range EF Range: 55-60 % TR Vmax: 2.59 mm/s ( - ) TR PGmax: 27 mmHg ( - ) syst. PAP: 32 mmHg ( - ) Continued Measurements: Valvular Assessment TV/PV Name Value CVP (est.): 5 mmHg Findings: Left Ventricle: Normal size left ventricle. Normal systolic LV function with paradoxic septal motion suggestive of bundle branch block, paced cardiac rhythm, or prior cardiac surgery. . The ejection fraction is estimated to be 55-60 %. No regional wall motion abnormality. Right Ventricle: Normal size right ventricle. Normal RV function. There is a pacemaker lead noted in the right ventricle. Left Atrium: The left atrium is normal in size. Patient: ANH HOLBROOK Study Date: 12/16/2017 Page 1 of 2 08:01 AM Right Atrium: The right atrium is normal in size. Mitral Valve: The mitral valve is normal in appearance and function. Mild mitral valve regurgitation is present. No mitral stenosis is present. Aortic Valve: The aortic valve is a bioprosthesis. Normal functioning aortic valve prosthesis. The prosthetic aortic valve is normal. No prosthesis regurgitation. Tricuspid Valve: The tricuspid valve is normal in appearance and function. The pulmonary artery pressure is normal. Right ventricular systolic pressure measures 32mmHg. Pericardium: Small to moderate pericardial effusion. No echocardiographic evidence of hemodynamic compromise. There is a pleural effusion present. The pericardial effusion present appears slightly larger than the effusion present on echo performed 12/12/17. The patient does not appear to present with tamponade. (No Signature Object) Patient: ANH HOLBROOK Study Date: 12/16/2017 Page 2 of 2 08:01 AM [id number]
--- NOTE | 2017-12-16 16:26 | ASMTCMCOM ---
CM Note CM Note Notes: 12/16/2017 Case Management Note Met w/pt to discuss SNF preferences. Pt visited by [facility] rep today. [facility] rep to visit tomorrow. Pt prefers [facility] today because of recommendation from friends. [facility] accepted pt. Pt will not be returning to [facility]. Case Management d/c poc: to SNF rehab pending acceptance and pt choice. Case Management to follow. Date Signed: 12/16/2017 04:26 PM Electronically Signed By:Ana Luisa Wisdom RN
[2017-12-16] MEDS ORDERED: PIPERACILLIN/TAZO 3.375 GM/DEX 50 ML IV SCH (18:00)
--- NOTE | 2017-12-16 19:12 | HOSPPROG ---
Hospitalist Progress Note Assessment/Plan: * Septic shock - off pressors - suspect aspiration PNA as source * Aspiration pneumonia -IV Zosyn * Acute respiratory failure * ARF due to shock - improved -baseline creatinine 1.1 * Volume overload with scrotal edema -IV lasix * Increased LFT -likely due to shock -abd US negative for GB disease * Hyperkalemia - resolved * Recent bioprosthetic aortic valve and aortic root graft (12/04) -amiodarone x 1 month + PO metoprolol * Complete heart block s/p PPM * Moderate pericardial effusion -to OR for drainage with Dr. Amaro tomorrow * Prostate ca * GERD/Barretts Subjective: Still SOB, very swollen Objective: Vital Signs Temp Pulse Resp BP Pulse Ox 36.4 C 83 19 110/71 94 12/16/17 19:04 12/16/17 19:04 12/16/17 19:04 12/16/17 19:04 12/16/17 19:04 Laboratory Results 12/16/17 05:36 12/16/17 12:45 12/15/17 12/16/17 12/17/17 05:59 05:59 05:59 Intake Total 1276 500 870 Output Total 350 200 150 Balance 926 300 720 PT 17.9 SEC (12.0-15.0) H 12/12/17 19:39 INR 1.46 (0.83-1.16) H 12/12/17 19:39 d/w Dr. Amaro PA - drain pericardial fluid in am ECHO - pericardial fluid increased, but not tamponade - Physical Exam Constitutional: no apparent distress, appears nourished, not in pain Cardiovascular: regular rate and rhythym, no murmur, rub, or gallop, edema Respiratory: no respiratory distress, no rales or rhonchi, clear to auscultation , inspiratory crackles Gastrointestinal: normoactive bowel sounds, soft, non-tender abdomen, no palpable masses Skin: no rashes or abrasions, no fluctuance, no induration Neurologic: AAOx3, sensation intact bilaterally Psychiatric: interacting appropriately, not anxious, not encephalopathic, thought process linear ICD10 Worksheet Patient Problems: Problems Problem Status Onset Dehydration Acute Pericardial effusion Acute Pleural effusion Acute S/P ascending aortic replacement Acute ~12/04/17 Acute blood loss anemia Acute Coronary atherosclerosis Acute 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
[2017-12-16] MEDS: MELATONIN 3 MG TAB PO SCH (20:35)
[2017-12-16] MEDS: ALPRAZolam 0.25 MG TAB PO PRN (20:36)
--- NOTE | 2017-12-16 22:51 | SOAPPROG ---
SOAP Progress Note Assessment/Plan: Assessment: Plan: 12/16/17 22:46 Medicine assistance appreciated/ likely DC later this week to ECF Review of chart and results more consistent with hypovolemia, over diuresis and increased BB prior to DC all cultures negative and sepsis extremely rare this early post op no evidence pneumonia or aspiration WBC represents stress response to hypovolemic shock moderate pericardial effusion exacerbated hypotension on admit, not evident till today transfuse /diuresis/DC antibiotics/ drain pericardial effusion Objective: Vital Signs Temp Pulse Resp BP Pulse Ox 36.4 C 83 19 110/71 94 12/16/17 19:04 12/16/17 19:04 12/16/17 19:04 12/16/17 19:04 12/16/17 19:04 Laboratory Results 12/16/17 05:36 12/16/17 12:45 12/15/17 12/16/17 12/17/17 05:59 05:59 05:59 Intake Total 1276 500 870 Output Total 350 200 350 Balance 926 300 520 PT 17.9 SEC (12.0-15.0) H 12/12/17 19:39 INR 1.46 (0.83-1.16) H 12/12/17 19:39 ICD10 Worksheet Patient Problems: Problems Problem Status Onset Dehydration Acute Pericardial effusion Acute Pleural effusion Acute S/P ascending aortic replacement Acute ~12/04/17 Acute blood loss anemia Acute Coronary atherosclerosis Acute 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
[2017-12-17] MEDS ORDERED: ceFAZolin 2 GM/DEXTROSE 100 ML IV ONE (06:00)
--- NOTE | 2017-12-17 06:22 | SOAPPROG ---
SOAP Progress Note Assessment/Plan: 12/04/17 (Sondra): Composite graft replacement of AVR/root/asc ao and hemiarch with 27mm Freestyle porcine root and 30 mm hemashield graft. Rt axillary cannulation with 8 mm hemashield graft for low flow cerebral perfusion during hypothermic circulatory arrest. 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 Objective: Vital Signs Temp Pulse Resp BP Pulse Ox 36.7 C 94 17 158/90 H 94 12/17/17 04:00 12/17/17 04:00 12/17/17 04:00 12/17/17 04:00 12/17/17 04:00 Laboratory Results 12/16/17 05:36 12/17/17 05:20 12/16/17 12/17/17 12/18/17 05:59 05:59 05:59 Intake Total 500 870 Output Total 200 1375 Balance 300 -505 PT 17.9 SEC (12.0-15.0) H 12/12/17 19:39 INR 1.46 (0.83-1.16) H 12/12/17 19:39 Physical Exam - Physical Exam General Appearance: WD/WN, alert, no apparent distress EENT: No scleral icterus (R), No scleral icterus (L) Neck: normal inspection Respiratory: respiratory distress (mild) Cardiac/Chest: other (paced) Abdomen: non-tender, soft, No distended Skin: normal color, warm/dry Extremities: pedal edema Neuro/Psych: no motor/sensory deficits, alert, normal mood/affect, oriented x 3 ICD10 Worksheet Patient Problems: Problems Problem Status Onset Dehydration Acute Pericardial effusion Acute Pleural effusion Acute S/P ascending aortic replacement Acute ~05/10/18 Acute blood loss anemia Acute Coronary atherosclerosis Acute 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
[2017-12-17] MEDS ORDERED: LR 1,000 ML IV ONE (06:52)
[2017-12-17] MEDS ORDERED: EPINEPHrine 1 MG/ML INJ ONE (06:54)
[2017-12-17] MEDS ORDERED: BUPIVACAINE 0.25% 30 ML SDV ONE (06:54)
--- NOTE | 2017-12-17 07:05 | PDANEPAE ---
ANE Past Medical History - Cardiovascular History Hx Hypertension: Yes Hx Arrhythmias: No Hx Chest Pain: No Hx Coronary Artery / Peripheral Vascular Disease: No Hx CHF / Valvular Disease: Yes Hx Palpitations: No Cardiovascular History Comment: htn. aortic regurg. thoracic ascending aortic aneurysm - Pulmonary History Hx COPD: No Hx Asthma/Reactive Airway Disease: No Hx Recent Upper Respiratory Infection: No Hx Oxygen in Use at Home: No Hx Sleep Apnea: No Sleep Apnea Screening Result - Last Documented: Negative Pulmonary History Comment: sarah triggers - Neurologic History Hx Cerebrovascular Accident: No Hx Seizures: No Hx Dementia: No - Endocrine History Hx Diabetes: No - Renal History Hx Renal Disorders: No Renal History Comment: prostate ca 2010 with radiation - Liver History Hx Hepatic Disorders: No - Neurological & Psychiatric Hx Hx Neurological and Psychiatric Disorders: No - Cancer History Hx Cancer: Yes Cancer History Comment: prostate - Congenital Disorder History Hx Congenital Disorders: No - GI History Hx Gastrointestinal Disorders: Yes Gastrointestinal History Comment: GERD. hx of barretts esophagus. hx of EGD's - Other Health History Other Health History: wearing glasses temporarily d/t cataract surgery - Chronic Pain History Chronic Pain: No - Surgical History Prior Surgeries: bilateral cataract surgery 09/15/17. right ankle repair. tonsillectomy. cancerous cyst removed from waistline. external beam radation for prostate ca 2009 ANE Review of Systems Review of Systems: - Pacemaker Pacemaker Cordwood Cutter: Biotronik Pacemaker Model: edora 8dr Pacemaker Mode: DDDR ANE Patient History - Allergies Allergies/Adverse Reactions: ciprofloxacin [From Cipro] Allergy (Verified 12/12/17 16:40) Other-Enter Comments levofloxacin [From Levaquin] Allergy (Verified 12/12/17 16:40) Other-Enter Comments - Home Medications Home Medications: Ascorbic Acid [Vitamin C 500 mg (*)] 500 mg PO DAILY 11/17/17 [Last Taken ] Cholecalciferol Vit D3 [Vitamin D3 (*)] 1,000 units PO DAILY 11/17/17 [Last Taken 12/02/17] [place]-3 Fatty Acids [Fish Oil 1000 mg (*)] 1,000 mg PO DAILY 11/17/17 [Last Taken 12/02/17] Omeprazole 20 mg PO DAILY 11/17/17 [Last Taken 12/02/17] Vitamin B Complex [Vitamin B Complex (OTC)] 1 each PO DAILY 11/17/17 [Last Taken 12/02/17] Sennosides/Docusate Sodium [Senokot-S] 1 - 2 tab PO BID PRN 12/12/17 [Last Taken Unknown] - NPO status NPO Since - Liquids (Date): 12/17/17 NPO Since - Liquids (Time): 00:01 NPO Since - Solids (Date): 12/17/17 NPO Since - Solids (Time): 00:01 - Smoking Hx Smoking Status: Never smoked ANE Labs/Vital Signs - Labs Result Diagrams: 12/16/17 05:36 12/17/17 05:20 - Vital Signs Blood Pressure: 165/92 Heart Rate: 86 Respiratory Rate: 17 O2 Sat (%): 96 Height: 162 cm Weight: 66.1 kg ANE Physical Exam - Airway Neck exam: FROM Mallampati Score: Class 2 - Pulmonary Pulmonary: no respiratory distress - Cardiovascular Cardiovascular: regular rate and rhythym - ASA Status ASA Status: III ANE Anesthesia Plan Anesthesia Plan: general endotracheal anesthesia
[2017-12-17] MEDS ORDERED: LIDOCAINE 2% 100 MG/5 ML SYR ONE (07:09)
[2017-12-17] MEDS ORDERED: PROPOFOL 200 MG/20 ML VIAL ONE (07:09)
[2017-12-17] MEDS ORDERED: fentaNYL 100 MCG/2 ML INJ ONE (07:09)
[2017-12-17] MEDS ORDERED: MUPIROCIN 2% 22 GM OINT ONE (07:09)
[2017-12-17] MEDS ORDERED: ROCURONIUM 50 MG/5 ML VIAL ONE (07:09)
[2017-12-17] MEDS ORDERED: ceFAZolin 2 GM/SWFI 20 ML SYR IVP ONE (07:54)
[2017-12-17] MEDS ORDERED: METOCLOPRAMIDE 10 MG TAB PO PRN (08:00)
[2017-12-17] MEDS ORDERED: D5W 1/2 NS W/ 20 KCl/L 1,000 ML IV SCH (08:00)
[2017-12-17] MEDS ORDERED: METOCLOPRAMIDE 10 MG/2 ML VIAL IVP PRN (08:00)
[2017-12-17] MEDS ORDERED: HYDROCODONE/APAP 5/325 TAB PO PRN (08:00)
[2017-12-17] MEDS ORDERED: NALOXONE HCL 0.4 MG/ML INJ IVP PRN (08:20)
[2017-12-17] MEDS ORDERED: fentaNYL 100 MCG/2 ML INJ IVP PRN (08:20)
[2017-12-17] MEDS ORDERED: ALBUTEROL 3 ML DEYVIAL IH PRN (08:20)
--- NOTE | 2017-12-17 08:20 | POSTANESTH ---
Post Anesthetic Evaluation Cardiovascular Status: Similar to Pre-Op Cond Respiratory Status: Similar to Pre-op Cond. Level of Consciousness/Mental Status: Alert and Oriented Pain Control: Adequate, Prn Tx Ordered Nausea/Vomiting Control: Adequate, Prn Tx Ordered Complications Possibly Related to Anesthesia: None Noted
--- NOTE | 2017-12-17 08:27 | GOP ---
[f rep st] OPERATIVE REPORT DATE OF OPERATION: 12/17/2017 SURGEON: Harry Amaro DO NEUROSURGEON: Harry Amaro DO STRAIGHT EDGER: Steven Bello PA-C. ANESTHESIOLOGIST: Gerber Andrade MD PREOPERATIVE DIAGNOSIS: Pericardial effusion. POSTOPERATIVE DIAGNOSIS: Pericardial effusion. PROCEDURE PERFORMED: Subxiphoid pericardial drainage. FINDINGS: Patient presented with hypotension, initially presumed to be due to sepsis. However, echo confirmed moderate pericardial effusion with pre-tamponade physiology and likely dehydration. DESCRIPTION OF PROCEDURE: He was prepped and draped in the operating room after consent was obtained . Time-out was confirmed. The lower 3 inches of his sternal incision were opened with sharp dissect ion. Blunt dissection into the pericardial space revealed approximately 250 cc of serosanguineous fl uid under pressure. This was evacuated. The sucker was placed down into the pericardium and gently rotated around all sides with some small amount of old clot removed. We then irrigated the chest wit h several liters of fluid. We removed the previously cut off pacing wires. A single Garrett drain was placed through a separate stab wound incision. The wounds were closed. 0.25% Marcaine with epineph rine was used to infiltrate. Dressings were applied. Patient was returned to the recovery room in s table condition. /[id number]/MODL
[2017-12-17] MEDS ORDERED: POTASSIUM CL 10 MEQ TAB PO ONE ×2 (10:10→18:59)
[2017-12-17] MEDS: AMIODARONE HCL 200 MG TAB PO SCH (10:39)
[2017-12-17] MEDS: FUROSEMIDE 40 MG/4 ML VIAL IVP SCH ×2 (10:39→16:00)
[2017-12-17] MEDS: OMEGA-3 FATTY ACIDS 1,000 MG CAP PO SCH (10:40)
[2017-12-17] MEDS: ASPIRIN 81 MG CHEWABLE TAB PO SCH (10:40)
[2017-12-17] MEDS: ASCORBIC ACID 500 MG TAB PO SCH (10:40)
[2017-12-17] MEDS: PANTOPRAZOLE SODIUM 40 MG TAB PO SCH (10:40)
[2017-12-17] MEDS: CHOLECALCIFEROL VIT D3 1,000 UNITS TAB PO SCH (10:40)
[2017-12-17] MEDS: SENNOSIDES/DOCUSATE SODIUM TAB PO SCH ×2 (10:41→20:34)
[2017-12-17] MEDS: FUROSEMIDE 100 MG/10 ML VIAL IVP SCH (10:43)
[2017-12-17] MEDS: ceFAZolin 2 GM in D5W 100 ML IV SCH ×2 (16:00→23:47)
--- NOTE | 2017-12-17 17:30 | HOSPPROG ---
Hospitalist Progress Note Assessment/Plan: * Shock - sepsis vs. pericardial effusion * Possible aspiration pneumonia -IV Zosyn DC'd by CT surgery * Pericardial effusion s/p drainage, pre-tamponade -continue drain * Acute respiratory failure - improved * ARF due to shock - improved -baseline creatinine 1.1 * Volume overload with scrotal edema -IV lasix * Increased LFT -likely due to shock/congestion -abd US negative for GB disease * Hyperkalemia - resolved * Recent bioprosthetic aortic valve and aortic root graft (12/04) -amiodarone x 1 month + PO metoprolol * Complete heart block s/p PPM * Prostate ca * GERD/Barretts Subjective: Much better after drain Objective: Vital Signs Temp Pulse Resp BP Pulse Ox 36.7 C 83 18 124/76 H 96 12/17/17 15:29 12/17/17 15:29 12/17/17 15:29 12/17/17 15:29 12/17/17 15:29 Laboratory Results 12/16/17 05:36 12/17/17 05:20 12/16/17 12/17/17 12/18/17 05:59 05:59 05:59 Intake Total 500 870 400 Output Total 200 1375 1565 Balance 300 -505 -1165 PT 17.9 SEC (12.0-15.0) H 12/12/17 19:39 INR 1.46 (0.83-1.16) H 12/12/17 19:39 - Physical Exam Constitutional: no apparent distress, appears nourished, not in pain Cardiovascular: regular rate and rhythym, no murmur, rub, or gallop Respiratory: no respiratory distress, no rales or rhonchi, clear to auscultation Gastrointestinal: normoactive bowel sounds, soft, non-tender abdomen, no palpable masses Skin: no rashes or abrasions, no fluctuance, no induration Neurologic: AAOx3, sensation intact bilaterally Psychiatric: interacting appropriately, not anxious, not encephalopathic, thought process linear ICD10 Worksheet Patient Problems: Problems Problem Status Onset Dehydration Acute Pericardial effusion Acute Pleural effusion Acute S/P ascending aortic replacement Acute ~12/04/17 Acute blood loss anemia Acute Coronary atherosclerosis Acute 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
[2017-12-17] MEDS ORDERED: PIPERACILLIN SODIUM/TAZOBACTAM 3.375 GM in D5W 50 ML IV SCH (18:00)
[2017-12-17] MEDS ORDERED: POTASSIUM CL 20 MEQ TAB PO ONE (20:52)
[2017-12-17] MEDS: ALPRAZolam 0.25 MG TAB PO PRN (22:07)
[2017-12-18] MEDS ORDERED: POTASSIUM CL 20 MEQ TAB PO ONE ×2 (05:33→20:24)
--- NOTE | 2017-12-18 06:25 | SOAPPROG ---
SOAP Progress Note Assessment/Plan: POD#1: Pericardial window 12/04/17 (Sondra): Composite graft replacement of AVR/root/asc ao and hemiarch with 27mm Freestyle porcine root and 30 mm hemashield graft. Rt axillary cannulation with 8 mm hemashield graft for low flow cerebral perfusion during hypothermic circulatory arrest. 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 Pain well-controlled. Slept OK last night. Objective: Vital Signs Temp Pulse Resp BP Pulse Ox 36.7 C 79 16 111/66 96 12/18/17 04:00 12/18/17 04:00 12/18/17 04:00 12/18/17 04:00 12/18/17 04:00 Laboratory Results 12/18/17 03:25 12/18/17 03:25 12/17/17 12/18/17 12/19/17 05:59 05:59 05:59 Intake Total 870 1080 Output Total 1375 3905 Balance -505 -2825 PT 17.9 SEC (12.0-15.0) H 12/12/17 19:39 INR 1.46 (0.83-1.16) H 12/12/17 19:39 Physical Exam - Physical Exam General Appearance: WD/WN, alert, no apparent distress EENT: No scleral icterus (R), No scleral icterus (L) Neck: normal inspection Respiratory: respiratory distress (mild) Cardiac/Chest: other (paced) Abdomen: non-tender, soft, No distended Skin: normal color, warm/dry Extremities: pedal edema Neuro/Psych: no motor/sensory deficits, alert, normal mood/affect, oriented x 3 ICD10 Worksheet Patient Problems: Problems Problem Status Onset Dehydration Acute Pericardial effusion Acute Pleural effusion Acute S/P ascending aortic replacement Acute ~12/04/17 Acute blood loss anemia Acute Coronary atherosclerosis Acute 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
[2017-12-18] MEDS ORDERED: POTASSIUM CL 10 MEQ TAB PO ONE (10:29)
[2017-12-18] MEDS: AMIODARONE HCL 200 MG TAB PO SCH (10:38)
[2017-12-18] MEDS: ASPIRIN 81 MG CHEWABLE TAB PO SCH (10:38)
[2017-12-18] MEDS: CHOLECALCIFEROL VIT D3 1,000 UNITS TAB PO SCH (10:38)
[2017-12-18] MEDS: ASCORBIC ACID 500 MG TAB PO SCH (10:38)
[2017-12-18] MEDS: OMEGA-3 FATTY ACIDS 1,000 MG CAP PO SCH (10:39)
[2017-12-18] MEDS: ENOXAPARIN 40 MG/0.4 ML SYR SC SCH (10:39)
[2017-12-18] MEDS: PANTOPRAZOLE SODIUM 40 MG TAB PO SCH (10:39)
[2017-12-18] MEDS: SENNOSIDES/DOCUSATE SODIUM TAB PO SCH ×2 (10:39→21:23)
[2017-12-18] MEDS: FUROSEMIDE 40 MG/4 ML VIAL IVP SCH ×2 (10:39→15:48)
[2017-12-18] MEDS: POTASSIUM CL 20 MEQ TAB PO SCH ×2 (12:23→15:48)
--- NOTE | 2017-12-18 13:48 | HOSPPROG ---
Hospitalist Progress Note Assessment/Plan: 82 yo M with hx of recent aortic valve replacement pw shock * Shock - sepsis vs. pericardial effusion/tamponade * Possible aspiration pneumonia -IV Zosyn DC'd by CT surgery - repeat cxr from 12/18 personally reviewed showing persistent bilateral pleural effusions and atelectasis but no clear PNA, continue to monitor off of abx * Pericardial effusion s/p drainage, pre-tamponade -likely to remove drain today per CT surg note, output minimal * Acute respiratory failure - improved, continues to require 2L likely 2/2 atelectasis as above * JASMINE due to shock - improved -baseline creatinine 1.1 * Volume overload with scrotal edema -IV lasix--monitoring electrolytes on 80mg IV BID currently, hypokalemia being repleted * Increased LFT -likely due to shock/congestion--mildly increased today, will continue to trend -abd US negative for GB disease * Hyperkalemia - resolved * Recent bioprosthetic aortic valve and aortic root graft (12/04) -amiodarone x 1 month + PO metoprolol * Complete heart block s/p PPM * Prostate ca * GERD/Barretts Patient new to my care. Old records reviewed and summarized as above. Subjective: no significant overnight events, patient states he is doing well currently, pain controlled Objective: Vital Signs Temp Pulse Resp BP Pulse Ox 36.7 C 79 18 116/72 92 12/18/17 07:29 12/18/17 07:29 12/18/17 07:29 12/18/17 07:29 12/18/17 10:12 Microbiology 12/12/17 22:55 Blood Culture - Final Blood 12/12/17 20:43 Blood Culture - Final Blood Laboratory Results 12/18/17 03:25 12/18/17 03:25 12/17/17 12/18/17 12/19/17 05:59 05:59 05:59 Intake Total 870 1080 Output Total 1375 3905 10 Balance -505 -2825 -10 PT 17.9 SEC (12.0-15.0) H 12/12/17 19:39 INR 1.46 (0.83-1.16) H 12/12/17 19:39 awake alert anicteric op clear rrr distant heart sounds cta b to ant exam soft nt nd 2-3+ pitting edema ble warm dry well perfused oriented appropriate ICD10 Worksheet Patient Problems: Problems Problem Status Onset Dehydration Acute Pericardial effusion Acute Pleural effusion Acute Coronary atherosclerosis Acute Acute blood loss anemia Acute S/P ascending aortic replacement Acute ~12/04/17 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
[2017-12-18] MEDS: ALPRAZolam 0.25 MG TAB PO PRN (21:24)
[2017-12-18] MEDS: ACETAMINOPHEN 325 MG TAB PO PRN (21:24)
[2017-12-18] MEDS: MELATONIN 3 MG TAB PO PRN (21:59)
[2017-12-18] MEDS ORDERED: MELATONIN 3 MG TAB PO SCH (22:00)
[2017-12-19 04:38] LABS: PLATELET COUNT 159 10^3/uL (150-400)
[2017-12-19] MEDS ORDERED: LIDOCAINE 1% 300 MG/30 ML SDV ONE (09:26)
[2017-12-19] MEDS: PANTOPRAZOLE SODIUM 40 MG TAB PO SCH (11:43)
[2017-12-19] MEDS: AMIODARONE HCL 200 MG TAB PO SCH (11:43)
[2017-12-19] MEDS: POTASSIUM CL 20 MEQ TAB PO SCH ×2 (11:43→16:55)
[2017-12-19] MEDS: FUROSEMIDE 40 MG/4 ML VIAL IVP SCH ×2 (11:44→16:54)
[2017-12-19] MEDS: SENNOSIDES/DOCUSATE SODIUM TAB PO SCH ×2 (11:44→21:55)
[2017-12-19] MEDS: CHOLECALCIFEROL VIT D3 1,000 UNITS TAB PO SCH (11:45)
[2017-12-19] MEDS: OMEGA-3 FATTY ACIDS 1,000 MG CAP PO SCH (11:45)
[2017-12-19] MEDS: ASCORBIC ACID 500 MG TAB PO SCH (11:45)
--- NOTE | 2017-12-19 11:50 | PDRADPN ---
Radiology Procedure Note Date of Procedure: 12/19/17 Radiologist: Kiko Sol Anesthesia: Local (Specify) Pre-op Diagnosis: post operative effusion Post-op Diagnosis: same Indication: tx Procedure: thoracentesis Finding(s): 5F access right pleural space. red tinged fluid 950cc aspirated with no residual. Inf/Abcess present in the surg proc area at time of surgery?: No EBL: Minimal Complications: none
[2017-12-19] MEDS: ASPIRIN 81 MG CHEWABLE TAB PO SCH (12:07)
--- NOTE | 2017-12-19 14:27 | HOSPPROG ---
Hospitalist Progress Note Assessment/Plan: 82 yo M with hx of recent aortic valve replacement pw shock * Shock - sepsis vs. pericardial effusion/tamponade * Possible aspiration pneumonia -IV Zosyn DC'd by CT surgery - repeat cxr from 12/18 personally reviewed showing persistent bilateral pleural effusions and atelectasis but no clear PNA, continue to monitor off of abx * Pericardial effusion s/p drainage, pre-tamponade -tube out, ct surg managing * bilateral pleural effusion: s/p R thora today * Acute respiratory failure - improved, continues to require 2L likely 2/2 atelectasis/pleural effusio as above * JASMINE due to shock - improved -baseline creatinine 1.1 * Volume overload with scrotal edema -IV lasix--monitoring electrolytes on 80mg IV BID currently, hypokalemia being repleted * Increased LFT -likely due to shock/congestion--stable -abd US negative for GB disease * Hyperkalemia - resolved * Recent bioprosthetic aortic valve and aortic root graft (12/04) -amiodarone x 1 month + PO metoprolol * Complete heart block s/p PPM * Prostate ca * GERD/Barretts Subjective: no significant overnight evnts Objective: Vital Signs Temp Pulse Resp BP Pulse Ox 36.4 C 72 14 126/79 H 98 12/19/17 12:00 12/19/17 12:00 12/19/17 12:00 12/19/17 12:00 12/19/17 12:00 Laboratory Results 12/19/17 03:45 12/19/17 03:45 12/18/17 12/19/17 12/20/17 05:59 05:59 05:59 Intake Total 1080 1050 Output Total 3905 645 1300 Balance -2825 405 -1300 PT 17.9 SEC (12.0-15.0) H 12/12/17 19:39 INR 1.46 (0.83-1.16) H 12/12/17 19:39 awake alert anicteric op clear rrr distant heart sounds cta b to ant exam soft nt nd 2-3+ pitting edema ble warm dry well perfused oriented appropriate ICD10 Worksheet ICD10 Worksheet Patient Problems: Problems Problem Status Onset Dehydration Acute Pericardial effusion Acute Pleural effusion Acute S/P ascending aortic replacement Acute ~12/04/17 Acute blood loss anemia Acute Coronary atherosclerosis Acute 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
--- NOTE | 2017-12-19 17:05 | ASMTCMCOM ---
CM Note CM Note Notes: 12/19/2017 Case Management Note Debby from [facility] met w/pt and accepted him. Case Management d/c poc: [facility] rehab Case Management to follow. Date Signed: 12/19/2017 05:05 PM Electronically Signed By:Ana Luisa Wisdom RN
--- NOTE | 2017-12-19 19:00 | SOAPPROG ---
SOAP Progress Note Assessment/Plan: LATE ENTRY: seen on rounds this am Assessment: POD#2 Subxiphoid pericardial window 12/04/17 (Sondra): Composite graft replacement of AVR/root/asc ao and hemiarch with 27mm Freestyle porcine root and 30 mm hemashield graft. Rt axillary cannulation with 8 mm hemashield graft for low flow cerebral perfusion during hypothermic circulatory arrest. 12/05/17 (Ruthie): Biotronik A/V pacemaker implantation Moderate pericardial effusion with pre-tamponade physiology - Tube out Bilateral pleural effusions, R > L - Possibly post pericardiotomy syndrome - Likely amenable to thoracentesis Presence bioprosthetic valve and dacron interpostion graft s/p recent AVR/root/ asc ao replacement - ASA for thromboprophylaxis Postop AV node dyfx - Stable s/p PPM implantation - AF prophylaxis with low dose amiodarone Anemia with hypotension - s/p 2U PRBC - VTE prophylaxis with lovenox/SCDs Dehydration - Moderate volume overload s/p fluid resuscitation Nonobstructive coronary and carotid artery disease - Secondary prevention with baby ASA, BB as tolerated by BP, and statin as allowed by LFTs Plan: IR consult for US guided rt thoracentesis Cont BID IV Lasix. Dispo - [facility] when medically stable. 12/19/17 18:54 Subjective: Doing ok. Easily winded. Objective: Vital Signs Temp Pulse Resp BP Pulse Ox 36.5 C 77 12 115/69 98 12/19/17 16:00 12/19/17 16:00 12/19/17 16:00 12/19/17 16:00 12/19/17 16:00 Laboratory Results 12/19/17 03:45 12/19/17 03:45 12/18/17 12/19/17 12/20/17 05:59 05:59 05:59 Intake Total 1080 1050 900 Output Total 3905 645 1450 Balance -2825 405 -550 PT 17.9 SEC (12.0-15.0) H 12/12/17 19:39 INR 1.46 (0.83-1.16) H 12/12/17 19:39 HR and BP controlled. Improving fluid balance. CXR -> bilat pleural effusions, moderate on the right Physical Exam - Physical Exam General Appearance: alert, no apparent distress Respiratory: decreased breath sounds (bases) Cardiac/Chest: regular rate, rhythm, other (Sternotomy CDI) Skin: warm/dry Extremities: swelling (1-2+ dependent) ICD10 Worksheet Patient Problems: Problems Problem Status Onset Dehydration Acute Pericardial effusion Acute Pleural effusion Acute S/P ascending aortic replacement Acute ~12/04/17 Acute blood loss anemia Acute Coronary atherosclerosis Acute 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
[2017-12-19] MEDS: ACETAMINOPHEN 325 MG TAB PO PRN (21:54)
[2017-12-19] MEDS: ALPRAZolam 0.25 MG TAB PO PRN (21:54)
[2017-12-19] MEDS: MELATONIN 3 MG TAB PO PRN (21:54)
--- NOTE | 2017-12-20 07:28 | SOAPPROG ---
SOAP Progress Note Assessment/Plan: Assessment: POD#3 Subxiphoid pericardial window, wound closure with munir PPD#1 rt thoracentesis, 950 ml 12/04/17 (Sondra): Composite graft replacement of AVR/root/asc ao and hemiarch with 27mm Freestyle porcine root and 30 mm hemashield graft. Rt axillary cannulation with 8 mm hemashield graft for low flow cerebral perfusion during hypothermic circulatory arrest. 12/05/17 (Ruthie): Biotronik A/V pacemaker implantation Moderate pericardial effusion with pre-tamponade physiology - Drained by pericardial window. Tube out. 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 Consider anti-inflammatory. - Good re-expansion of rt lung s/p thoracentesis - Small residual left effusion Presence bioprosthetic valve and dacron interpostion graft s/p recent AVR/root/ asc ao replacement - ASA for thromboprophylaxis Postop AV node dyfx - Stable rhythm s/p PPM implantation - AF prophylaxis with low dose amiodarone and BB. Postop anorexia - Stop amio - Relax dietary restriction Anemia with hypotension - Stable s/p 2U PRBC - VTE prophylaxis with lovenox/SCDs Dehydration - Moderate volume overload s/p fluid resuscitation. Diuresis in progress. Nonobstructive coronary and carotid artery disease - Secondary prevention with baby ASA, BB as tolerated by BP, and statin as allowed by LFTs Plan: Switch to oral lasix 40 mg BID. Regular diet, no restrictions. Stop amiodarone. Trial colchicine 0.6 mg BID. Cont inc activity as tolerated. Dispo - [facility] on 12/23. 12/20/17 07:25 Subjective: Doing ok. Decr breathlessness post thoracentesis. Poor appetite for hospital food. Craving ice cream and fruit juice. Objective: Vital Signs Temp Pulse Resp BP Pulse Ox 36.6 C 70 18 143/75 H 99 12/20/17 05:21 12/20/17 05:21 12/20/17 05:21 12/20/17 05:21 12/20/17 05:21 Laboratory Results 12/19/17 03:45 12/20/17 03:42 12/19/17 12/20/17 12/21/17 05:59 05:59 05:59 Intake Total 1050 900 Output Total 645 2925 Balance 405 -2025 PT 17.9 SEC (12.0-15.0) H 12/12/17 19:39 INR 1.46 (0.83-1.16) H 12/12/17 19:39 HR and BP well controlled. Min suppl O2 req. Vigorous diuresis. CO2 on the rise. CXR-> no recurrent rt pl eff, sm residual left pl eff Physical Exam - Physical Exam General Appearance: alert, no apparent distress Respiratory: decreased breath sounds (left base) Cardiac/Chest: regular rate, rhythm, other (Sternotomy and rt ax incisions CDI. Subxiphoid incision CDI w munir.) Abdomen: non-tender, soft Skin: warm/dry Extremities: swelling (trace dependent) ICD10 Worksheet Patient Problems: Problems Problem Status Onset Dehydration Acute Pericardial effusion Acute Pleural effusion Acute S/P ascending aortic replacement Acute ~12/04/17 Acute blood loss anemia Acute Coronary atherosclerosis Acute 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
[2017-12-20] MEDS: FUROSEMIDE 40 MG/4 ML VIAL IVP SCH (09:54)
[2017-12-20] MEDS: POTASSIUM CL 20 MEQ TAB PO SCH ×4 (09:54→21:00)
[2017-12-20] MEDS: OMEGA-3 FATTY ACIDS 1,000 MG CAP PO SCH ×2 (09:56→10:03)
[2017-12-20] MEDS: ASPIRIN 81 MG CHEWABLE TAB PO SCH (09:57)
[2017-12-20] MEDS: CHOLECALCIFEROL VIT D3 1,000 UNITS TAB PO SCH ×2 (09:57→10:03)
[2017-12-20] MEDS: PANTOPRAZOLE SODIUM 40 MG TAB PO SCH (09:57)
[2017-12-20] MEDS: ASCORBIC ACID 500 MG TAB PO SCH ×2 (09:57→10:03)
[2017-12-20] MEDS: COLCHICINE 0.6 MG CAP/TAB PO SCH ×2 (09:58→21:00)
[2017-12-20] MEDS: SENNOSIDES/DOCUSATE SODIUM TAB PO PRN (09:58)
[2017-12-20] MEDS: ENOXAPARIN 40 MG/0.4 ML SYR SC SCH (10:02)
[2017-12-20] MEDS: AMIODARONE HCL 200 MG TAB PO SCH (10:12)
[2017-12-20] MEDS ORDERED: FUROSEMIDE 40 MG TAB PO SCH (10:15)
[2017-12-20] MEDS ORDERED: NS 500 ML IV ONE ×2 (11:00→16:15)
--- NOTE | 2017-12-20 15:39 | HOSPPROG ---
Hospitalist Progress Note Assessment/Plan: 82 yo M with hx of recent aortic valve replacement pw shock * Shock - sepsis vs. pericardial effusion/tamponade, resolved * Possible aspiration pneumonia --stable off of abx, suspect more of an aspiration pneumonitis picture * Pericardial effusion s/p drainage, pre-tamponade -tube out, ct surg managing * bilateral pleural effusion: s/p R thora yesterday, repeat cxr personally reviewed--right pleural effusion not reaccumulating post thora yesterday, small left effusion stable * Acute respiratory failure - improved, continues to require 2L likely 2/2 atelectasis/pleural effusion as above * JASMINE due to shock - improved -baseline creatinine 1.1 * Volume overload with scrotal edema -improved, decreased to 40mg po bid lasix per CT surg * Increased LFT -likely due to shock/congestion--stable -abd US negative for GB disease * Hyperkalemia - resolved * Recent bioprosthetic aortic valve and aortic root graft (12/04) -amiodarone x 1 month + PO metoprolol * Complete heart block s/p PPM * Prostate ca * GERD/Barretts IP status, will dc to snf likely on 12/[address] surgery, Care plan reviewed with present at bedside Subjective: no significant overnight events, patient states he is feeling much better today Objective: Vital Signs Temp Pulse Resp BP Pulse Ox 36.4 C 90 14 83/59 L 95 12/20/17 15:18 12/20/17 15:18 12/20/17 15:18 12/20/17 15:18 12/20/17 15:18 Laboratory Results 12/19/17 03:45 12/20/17 03:42 12/19/17 12/20/17 12/21/17 05:59 05:59 05:59 Intake Total 1050 900 120 Output Total 645 2925 600 Balance 405 -2025 -480 PT 17.9 SEC (12.0-15.0) H 12/12/17 19:39 INR 1.46 (0.83-1.16) H 12/12/17 19:39 awake alert anicteric op clear rrr distant heart sounds cta b to ant exam soft nt nd 2-3+ pitting edema ble warm dry well perfused oriented appropriate ICD10 Worksheet Patient Problems: Problems Problem Status Onset Dehydration Acute Pericardial effusion Acute Pleural effusion Acute S/P ascending aortic replacement Acute ~12/04/17 Acute blood loss anemia Acute Coronary atherosclerosis Acute 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
[2017-12-20] MEDS: MELATONIN 3 MG TAB PO PRN (21:00)
[2017-12-20] MEDS: ACETAMINOPHEN 325 MG TAB PO PRN (21:00)
[2017-12-20] MEDS: ALPRAZolam 0.25 MG TAB PO PRN (21:00)
--- NOTE | 2017-12-21 08:13 | SOAPPROG ---
SOAP Progress Note Assessment/Plan: Assessment: POD#4 Subxiphoid pericardial window, wound closure with munir PPD#2 rt thoracentesis, 950 ml 12/04/17 (Sondra): Composite graft replacement of AVR/root/asc ao and hemiarch with 27mm Freestyle porcine root and 30 mm hemashield graft. Rt axillary cannulation with 8 mm hemashield graft for low flow cerebral perfusion during hypothermic circulatory arrest. 12/05/17 (Ruthie): Biotronik A/V pacemaker implantation Moderate pericardial effusion with pre-tamponade physiology - Drained by pericardial window. Tube out. 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 Started on colchicine. - Good re-expansion of rt lung s/p thoracentesis - Small residual left effusion Presence bioprosthetic valve and dacron interpostion graft s/p recent AVR/root/ asc ao replacement - ASA for thromboprophylaxis Postop AV node dyfx - Stable rhythm s/p PPM implantation - AF prophylaxis with BB as tolerated. Adjunctive amio stopped d/t FTT. Postop anorexia - Prophylactic amiodarone stopped - Dietary restrictions relaxed Anemia with hypotension - Stable s/p 2U PRBC - VTE prophylaxis with lovenox/SCDs Dehydration - Moderate volume overload s/p fluid resuscitation. - Actively diuresed. Now near euvolemia. Nonobstructive coronary and carotid artery disease - Secondary prevention with baby ASA, BB as tolerated by BP, and statin as allowed by LFTs Plan: Relax lasix to 20 mg daily. Resume metoprolol 12.5 mg BID w conservative hold parameters. Cont colchicine 0.6 mg BID. Cont inc activity as tolerated. Wean O2. JOHN hose during day. Avoid prolonged dangling. Dispo - [facility] on 12/23. 12/21/17 08:05 Subjective: Feels well. Much happier with liberalized diet. No acute concerns. Objective: Vital Signs Temp Pulse Resp BP Pulse Ox 36.5 C 70 20 137/71 H 98 12/21/17 07:12 12/21/17 07:12 12/21/17 07:12 12/21/17 07:12 12/21/17 07:12 Laboratory Results 12/19/17 03:45 12/21/17 03:56 05/12/21/17 12/22/17 05:59 05:59 05:59 Intake Total 900 1770 Output Total 2925 1300 200 Balance -2024 470 -200 PT 17.9 SEC (12.0-15.0) H 12/12/17 19:39 INR 1.46 (0.83-1.16) H 12/12/17 19:39 Asensed Vpaced. Over diuresed yest, req IVF repl. Robust SBPs overnoc. Borderline suppl O2 req. Balanced I/Os. Within 1 kg baseline wt. - Pending Discharge Pending Discharge Within 48 Hours: Yes Pending Discharge Date: 12/23/17 Pending Discharge Time: 11:00 Physical Exam - Physical Exam General Appearance: alert, no apparent distress Respiratory: decreased breath sounds (left base, o/w CTA) Cardiac/Chest: regular rate, rhythm, other (Sternum grossly stable. Sternotomy and rt ax incision CDI. Subxiphoid incision CDI w munir. ) Abdomen: non-tender, soft Skin: warm/dry Extremities: swelling (1+ dependent) ICD10 Worksheet Patient Problems: Problems Problem Status Onset Dehydration Acute Pericardial effusion Acute Pleural effusion Acute S/P ascending aortic replacement Acute ~12/04/17 Acute blood loss anemia Acute Coronary atherosclerosis Acute 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
[2017-12-21] MEDS ORDERED: FUROSEMIDE 20 MG TAB PO SCH (09:00)
[2017-12-21] MEDS: VITAMIN B COMPLEX 1 EA CAP/TAB PO SCH (09:21)
[2017-12-21] MEDS: PANTOPRAZOLE SODIUM 40 MG TAB PO SCH (09:21)
[2017-12-21] MEDS: ASPIRIN 81 MG CHEWABLE TAB PO SCH (09:21)
[2017-12-21] MEDS: COLCHICINE 0.6 MG CAP/TAB PO SCH ×2 (09:22→21:45)
[2017-12-21] MEDS: METOPROLOL TARTRATE 25 MG TAB PO SCH ×2 (09:25→21:45)
[2017-12-21] MEDS: ENOXAPARIN 40 MG/0.4 ML SYR SC SCH (09:26)
[2017-12-21] MEDS: ASCORBIC ACID 500 MG TAB PO SCH (09:30)
[2017-12-21] MEDS: CHOLECALCIFEROL VIT D3 1,000 UNITS TAB PO SCH (09:30)
[2017-12-21] MEDS: OMEGA-3 FATTY ACIDS 1,000 MG CAP PO SCH (09:31)
--- NOTE | 2017-12-21 15:43 | HOSPPROG ---
Hospitalist Progress Note Assessment/Plan: 82 yo M with hx of recent aortic valve replacement pw shock * Shock - sepsis vs. pericardial effusion/tamponade, resolved * Possible aspiration pneumonia --stable off of abx, suspect more of an aspiration pneumonitis picture * Pericardial effusion s/p drainage, pre-tamponade -tube out, ct surg managing * bilateral pleural effusion: s/p R thora yesterday, repeat cxr personally reviewed--right pleural effusion not reaccumulating post thora yesterday, small left effusion stable * Acute respiratory failure - improved, continues to require 2L likely 2/2 atelectasis/pleural effusion as above * JASMINE due to shock - improved -baseline creatinine 1.1 * Volume overload with scrotal edema -improved, decreased to 40mg po bid lasix per CT surg * Increased LFT -likely due to shock/congestion--stable -abd US negative for GB disease * Hyperkalemia - resolved * Recent bioprosthetic aortic valve and aortic root graft (12/04) -amiodarone x 1 month + PO metoprolol * Complete heart block s/p PPM * Prostate ca * GERD/Barretts IP status, will dc to snf likely on 12/[address] surgery, Care plan reviewed with present at bedside Subjective: no significant overnight events patient feeling well today Objective: Vital Signs Temp Pulse Resp BP Pulse Ox 36.4 C 70 17 128/68 H 97 12/21/17 15:00 12/21/17 15:00 12/21/17 15:00 12/21/17 15:00 12/21/17 15:00 Laboratory Results 12/19/17 03:45 12/21/17 03:56 12/20/17 12/21/17 12/22/17 05:59 05:59 05:59 Intake Total 900 1770 Output Total 2925 1300 200 Balance -2024 470 -200 PT 17.9 SEC (12.0-15.0) H 12/12/17 19:39 INR 1.46 (0.83-1.16) H 12/12/17 19:39 awake alert anicteric op clear rrr distant heart sounds cta b to ant exam soft nt nd 2-3+ pitting edema ble warm dry well perfused oriented appropriate ICD10 Worksheet Patient Problems: Problems Problem Status Onset Dehydration Acute Pericardial effusion Acute Pleural effusion Acute S/P ascending aortic replacement Acute ~12/04/17 Acute blood loss anemia Acute Coronary atherosclerosis Acute 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
[2017-12-21] MEDS: ALPRAZolam 0.25 MG TAB PO PRN (21:46)
[2017-12-21] MEDS: MELATONIN 3 MG TAB PO PRN (21:46)
--- NOTE | 2017-12-22 08:23 | SOAPPROG ---
SOAP Progress Note Assessment/Plan: Assessment: POD#5 Subxiphoid pericardial window, wound closure with munir PPD#3 rt thoracentesis, 950 ml 12/04/17 (Sondra): Composite graft replacement of AVR/root/asc ao and hemiarch with 27mm Freestyle porcine root and 30 mm hemashield graft. Rt axillary cannulation with 8 mm hemashield graft for low flow cerebral perfusion during hypothermic circulatory arrest. 12/05/17 (Ruthie): Biotronik A/V pacemaker implantation Moderate pericardial effusion with pre-tamponade physiology - Drained by pericardial window. Tube out. 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 Started on colchicine. - Good re-expansion of rt lung s/p thoracentesis - Small residual left effusion Presence bioprosthetic valve and dacron interpostion graft s/p recent AVR/root/ asc ao replacement - ASA for thromboprophylaxis Postop AV node dyfx - Stable rhythm s/p PPM implantation - AF prophylaxis with BB as tolerated. Adjunctive amio stopped d/t FTT. Postop anorexia - Prophylactic amiodarone stopped - Dietary restrictions relaxed Anemia with hypotension - Stable s/p 2U PRBC - VTE prophylaxis with lovenox/SCDs Dehydration - Moderate volume overload s/p fluid resuscitation. - Actively diuresed. Now near euvolemia. Nonobstructive coronary and carotid artery disease - Secondary prevention with baby ASA and BB. Initiation of statin deferred to cards at outpt f/u. Plan: Switch lasix to HCTZ. Trial 25 mg today (prior home dose 37.5 mg daily). Cont metoprolol 12.5 mg BID. Cont colchicine 0.6 mg BID. Cont inc activity as tolerated. JOHN hose during day. Avoid prolonged dangling. Consider staple removal tomorrow. Dispo - [facility] tomorrow. 12/22/17 08:22 Subjective: Feels well. No acute concerns. Ready for rehab tomorrow. Objective: Vital Signs Temp Pulse Resp BP Pulse Ox 36.6 C 70 24 H 138/82 H 93 12/22/17 07:09 12/22/17 07:09 12/22/17 07:09 12/22/17 07:09 12/22/17 07:09 Laboratory Results 12/19/17 03:45 12/22/17 03:32 12/21/17 12/22/17 12/23/17 05:59 05:59 05:59 Intake Total 1770 780 Output Total 1300 1550 200 Balance 470 -770 -200 PT 17.9 SEC (12.0-15.0) H 12/12/17 19:39 INR 1.46 (0.83-1.16) H 12/12/17 19:39 Cardioresp status stable. Off O2. At baseline wt. CXR -> stable small residual bilat effusions, L>R - Pending Discharge Pending Discharge Within 24 Hours: Yes Pending Discharge Date: 12/23/17 Pending Discharge Time: 11:00 Physical Exam - Physical Exam General Appearance: alert, no apparent distress Respiratory: lungs clear (grossly) Cardiac/Chest: regular rate, rhythm, other (Sternum grossly stable. Sternotomy, rt ax and subxiphoid incisions CDI.) Abdomen: non-tender, soft Skin: warm/dry Extremities: swelling (1+ dependent) ICD10 Worksheet Patient Problems: Problems Problem Status Onset Dehydration Acute Pericardial effusion Acute Pleural effusion Acute S/P ascending aortic replacement Acute ~12/04/17 Acute blood loss anemia Acute Coronary atherosclerosis Acute 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
[2017-12-22] MEDS: ASPIRIN 81 MG CHEWABLE TAB PO SCH (09:02)
[2017-12-22] MEDS: PANTOPRAZOLE SODIUM 40 MG TAB PO SCH (09:02)
[2017-12-22] MEDS: VITAMIN B COMPLEX 1 EA CAP/TAB PO SCH ×2 (09:02→09:18)
[2017-12-22] MEDS: COLCHICINE 0.6 MG CAP/TAB PO SCH ×2 (09:02→22:14)
[2017-12-22] MEDS: ENOXAPARIN 40 MG/0.4 ML SYR SC SCH (09:02)
[2017-12-22] MEDS: HYDROCHLOROTHIAZIDE 25 MG TAB PO SCH (09:15)
[2017-12-22] MEDS: METOPROLOL TARTRATE 25 MG TAB PO SCH ×2 (09:15→22:14)
--- NOTE | 2017-12-22 14:24 | HOSPPROG ---
Hospitalist Progress Note Assessment/Plan: 82 yo M with hx of recent aortic valve replacement pw shock * Shock - sepsis vs. pericardial effusion/tamponade, resolved * Possible aspiration pneumonia --stable off of abx, suspect more of an aspiration pneumonitis picture * Pericardial effusion s/p drainage, pre-tamponade -tube out, ct surg managing * bilateral pleural effusion: s/p R thora yesterday, repeat cxr personally reviewed--right pleural effusion not reaccumulating post thora yesterday, small left effusion stable * Acute respiratory failure - improved, continues to require 2L likely 2/2 atelectasis/pleural effusion as above * JASMINE due to shock - improved -baseline creatinine 1.1 * Volume overload with scrotal edema -improved, monitoring off of lasix * Increased LFT -likely due to shock/congestion--resolved * Hyperkalemia - resolved * Recent bioprosthetic aortic valve and aortic root graft (12/04) -amiodarone x 1 month + PO metoprolol * Complete heart block s/p PPM * Prostate ca * GERD/Barretts IP status, will dc to snf likely on 12/[address] surgery Subjective: no significant overnight events, feeling much better, walked in [place] with nursing Objective: Vital Signs Temp Pulse Resp BP Pulse Ox 36.0 C 70 9 L 154/90 H 96 12/22/17 11:50 12/22/17 11:50 12/22/17 11:50 12/22/17 11:50 12/22/17 11:50 Laboratory Results 12/19/17 03:45 12/22/17 03:32 12/21/17 12/22/17 12/23/17 05:59 05:59 05:59 Intake Total 1770 780 Output Total 1300 1550 200 Balance 470 -770 -200 PT 17.9 SEC (12.0-15.0) H 12/12/17 19:39 INR 1.46 (0.83-1.16) H 12/12/17 19:39 awake alert nad anicteric ble edema cta b ICD10 Worksheet Patient Problems: Problems Problem Status Onset Dehydration Acute Pericardial effusion Acute Pleural effusion Acute Coronary atherosclerosis Acute Acute blood loss anemia Acute S/P ascending aortic replacement Acute ~12/04/17 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
[2017-12-22] MEDS: ALPRAZolam 0.25 MG TAB PO PRN (22:14)
[2017-12-22] MEDS: MELATONIN 3 MG TAB PO PRN (22:14)
[2017-12-22] MEDS: SENNOSIDES/DOCUSATE SODIUM TAB PO PRN (22:14)
[2017-12-23] MEDS: ENOXAPARIN 40 MG/0.4 ML SYR SC SCH (08:08)
[2017-12-23] MEDS: METOPROLOL TARTRATE 25 MG TAB PO SCH (08:08)
[2017-12-23] MEDS: PANTOPRAZOLE SODIUM 40 MG TAB PO SCH (08:09)
[2017-12-23] MEDS: COLCHICINE 0.6 MG CAP/TAB PO SCH (08:09)
[2017-12-23] MEDS: HYDROCHLOROTHIAZIDE 25 MG TAB PO SCH (08:09)
[2017-12-23] MEDS: VITAMIN B COMPLEX 1 EA CAP/TAB PO SCH (08:09)
[2017-12-23] MEDS: ASPIRIN 81 MG CHEWABLE TAB PO SCH (08:09)
[2017-12-23] MEDS ORDERED: FUROSEMIDE 40 MG TAB PO SCH (09:00)
--- NOTE | 2017-12-23 09:09 | SOAPPROG ---
SOAP Progress Note Assessment/Plan: POD#6 Subxiphoid pericardial window, wound closure with munir 12/04/17 (Sondra): Composite graft replacement of AVR/root/asc ao and hemiarch with 27mm Freestyle porcine root and 30 mm hemashield graft. Rt axillary cannulation with 8 mm hemashield graft for low flow cerebral perfusion during hypothermic circulatory arrest. 12/05/17 (Ruthie): Biotronik A/V pacemaker implantation Moderate pericardial effusion with pre-tamponade physiology - Drained by pericardial window. Tube out. 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 Started on colchicine. - Good re-expansion of rt lung s/p thoracentesis - Small residual left effusion Presence bioprosthetic valve and dacron interpostion graft s/p recent AVR/root/ asc ao replacement - ASA for thromboprophylaxis Postop AV node dyfx - Stable rhythm s/p PPM implantation - AF prophylaxis with BB as tolerated. Postop anorexia - Prophylactic amiodarone stopped - Dietary restrictions relaxed Anemia with hypotension - Stable s/p 2U PRBC - VTE prophylaxis with lovenox/SCDs Dehydration - Moderate volume overload s/p fluid resuscitation - continue diuretics. Nonobstructive coronary and carotid artery disease - Secondary prevention with baby ASA and BB. Initiation of statin deferred to cards at outpt f/u. Subjective: No complaints. Ready to leave. Objective: Vital Signs Temp Pulse Resp BP Pulse Ox 36.4 C 70 20 172/92 H 95 12/23/17 04:00 12/23/17 04:00 12/23/17 04:00 12/23/17 04:00 12/23/17 04:00 Laboratory Results 12/19/17 03:45 12/22/17 03:32 12/22/17 12/23/17 12/24/17 05:59 05:59 05:59 Intake Total 780 920 Output Total 1550 1150 Balance -770 -230 PT 17.9 SEC (12.0-15.0) H 12/12/17 19:39 INR 1.46 (0.83-1.16) H 12/12/17 19:39 Physical Exam - Physical Exam General Appearance: WD/WN, alert, no apparent distress EENT: No scleral icterus (R), No scleral icterus (L) Neck: normal inspection Respiratory: No respiratory distress Cardiac/Chest: other (paced) Abdomen: non-tender, soft, No distended Skin: normal color, warm/dry Extremities: pedal edema Neuro/Psych: no motor/sensory deficits, alert, normal mood/affect, oriented x 3 ICD10 Worksheet Patient Problems: Problems Problem Status Onset Dehydration Acute Pericardial effusion Acute Pleural effusion Acute S/P ascending aortic replacement Acute ~12/04/17 Acute blood loss anemia Acute Coronary atherosclerosis Acute 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
[2017-12-23 09:45] VITALS: BP 129/72
--- NOTE | 2017-12-23 12:26 | PDIAF ---
- Diagnosis Diagnosis: pericardial effusion s/p pericardial window Code Status: Full Code - Medication Management Discharge Medications: Medications to Continue on Transfer Ascorbic Acid [Vitamin C 500 mg (*)] 500 mg PO DAILY 11/17/17 [Last Taken ] Cholecalciferol Vit D3 [Vitamin D3 (*)] 1,000 units PO DAILY 11/17/17 [Last Taken 12/02/17] Fannin-3 Fatty Acids [Fish Oil 1000 mg (*)] 1,000 mg PO DAILY 11/17/17 [Last Taken 12/02/17] Omeprazole 20 mg PO DAILY 11/17/17 [Last Taken 12/02/17] Vitamin B Complex [Vitamin B Complex (OTC)] 1 each PO DAILY 11/17/17 [Last Taken 12/02/17] Acetaminophen [Tylenol 325mg (*)] 325 - 650 mg PO Q4HRS PRN tab 12/10/17 [Last Taken Unknown] Aspirin [Aspirin 81mg (*)] 81 mg PO DAILY tab.chew 12/10/17 [Last Taken Unknown ] Metoprolol Tartrate [Lopressor 25 mg (*)] 12.5 mg PO BID tab 12/10/17 [Last Taken Unknown] traMADol [Ultram 50 mg (*)] 25 - 50 mg PO Q6HRS PRN tab 12/10/17 [Last Taken Unknown] Sennosides/Docusate Sodium [Senokot-S] 1 - 2 tab PO BID PRN 12/12/17 [Last Taken Unknown] ALPRAZolam [Xanax 0.25 MG (*)] 0.25 mg PO BID PRN tab 12/23/17 [Last Taken Unknown] Colchicine [Colchicine (*)] 0.6 mg PO BID ea 12/23/17 [Last Taken Unknown] Furosemide [Lasix 40 MG (*)] 40 mg PO DAILY tab 12/23/17 [Last Taken Unknown] Hydrochlorothiazide [HCTZ (*)] 25 mg PO DAILY tab 12/23/17 [Last Taken Unknown] Melatonin [Melatonin 3 MG (*)] 3 mg PO HS PRN tab 12/23/17 [Last Taken Unknown] Discharge Medications: Refer to the Discharge Home Medication list for PRN reason. PICC Care - Routine: N/A - Orders Services needed: Registered Nurse, Certified Rehabilitation Therapy Technician, Master [employer] Teacher , Physical Therapy, Occupational Therapy Isolation Type: None Diet Recommendation: cardiac -low fat low salt, fluid restriction (use comment for amount) (2 liters per day) Diet Texture: Regular Texture Diet, Thin Liquids, Meds Whole w/Liquids, Meds Whole in Puree Weigh Patient: daily Newby: No Additional Instructions: Call [facility] cardiac rehab to enroll in phase 2 classes if not contacted within 48hrs of discharge. Sternal precautions x 4 weeks. Avoid lifting > 10lbs with an outstretched arm. Avoid push/pull activities. No driving for 2 weeks or until cleared by surgery. Cleanse wounds once daily with soap and water. Avoid underwater immersion (pool , hot tub, bath) until scabs off. Ok to leave all wounds open to air. Avoid creams or ointments until scabs off. Elevate low legs at rest. Avoid prolonged standing or dangling. Log daily vital signs: weight, resting heart rate over 1 minute, blood pressure , +/- pulse oximetry. Call [facility] for overnight weight gain > 2lbs, weekly gain > 5lbs or worsening leg swelling. Call [facility] for resting heart rate > 120 or < 60 OR for systolic blood pressure consistently < 90 or > 140. Target oxygen saturation > 89%. Adjustments per cardiac rehab. Please obtain a chest xray prior to surgical appointment. Use requisition form attached to appointment card. Chest x-rays don't require an appointment. Go to the Emergency Room entrance at the [facility] location. Sign in at the computer kiosk in the entryway. You will be given a number and may sit in the waiting area until called. You will be registered and directed to the Imaging desk on the 1st floor. This process can take up to an hour. Allow at least 30 min before your appointment to get x-ray taken. Ok to use [id number] medications for iron supplementation, bowel function or pain. Max daily dose of Tylenol 3000 mg. Max daily dose of Ibuprofen 3200 mg (ie. 600-800mg 3x daily with meals +/- before bed). - Labs/Radiology Imaging Orders: CXR at [facility] prior to December 30 appointment - Follow Up Care Current Providers and Referrals: Harry Amaro DO [Doctor of Osteopathy] - 12/30/17 11:30 am Patient,NotPresent [Unknown] - As per Instructions
--- NOTE | 2017-12-23 12:31 | PDDCSUM ---
Discharge Summary Discharge Summary: ADMISSION DATE: 12/12/17 DISCHARGE DATE: 12/23/17 DISCHARGE DIAGNOSES 1. Moderate pericardial effusion with pre-tamponade physiology 2. Acute kidney injury secondary to dehydration/hypotension 3. Bilateral pleural effusions 4. Anemia 5. Nonobstructive coronary and carotid artery disease 6. s/p bioprosthetic aortic root replacement, ascending aortic and hemiarch replacement 7. s/p A/V pacemaker implantation for AV node dysfunction PROCEDURES 12/17/17, Harry Amaro: 1. Subxiphoid pericardial window 12/19/17, Kiko Sol: 1. Right thoracentesis, 950 cc HOSPITAL COURSE BY PROBLEM LIST 1. Moderate pericardial effusion with pre-tamponade physiology - resolution s/p pericardial window. Colchicine prescribed for possible pericarditis. Duration to be determined. 2. Acute kidney injury secondary to dehydration/hypotension - resolved with pressor and fluid resuscitation. 3. Large right pleural effusion - s/p thoracentesis. 4. Anemia - s/p 2 units PRBCs. 5. Nonobstructive coronary and carotid artery disease - continue secondary prevention with beta-annie and aspirin. Statin to be started at discretion of PCP/beer cooler. 6. s/p bioprosthetic aortic root replacement, ascending aortic and hemiarch replacement - amiodarone stopped for atrial fibrillation prophylaxis. CONDITION Good DISPOSITION [facility] Pt was instructed on sternal precautions, activity limitations, and which problems to call [facility] with. Please see Discharge Plan and Interagency Discharge Form in chart for specifics. DISCHARGE MEDICATIONS Continue Ascorbic Acid [Vitamin C 500 mg (*)] 500 mg PO DAILY Cholecalciferol Vit D3 [Vitamin D3 (*)] 1,000 units PO DAILY Empire-3 Fatty Acids [Fish Oil 1000 mg (*)] 1,000 mg PO DAILY Omeprazole 20 mg PO DAILY Vitamin B Complex [Vitamin B Complex (OTC)] 1 each PO DAILY Acetaminophen [Tylenol 325mg (*)] 325 - 650 mg PO Q4HRS PRN Aspirin [Aspirin 81mg (*)] 81 mg PO DAILY Metoprolol Tartrate [Lopressor 25 mg (*)] 12.5 mg PO BID traMADol [Ultram 50 mg (*)] 25 - 50 mg PO Q6HRS PRN Sennosides/Docusate Sodium [Senokot-S] 1 - 2 tab PO BID PRN New: ALPRAZolam [Xanax 0.25 MG (*)] 0.25 mg PO BID PRN Colchicine [Colchicine (*)] 0.6 mg PO BID Furosemide [Lasix 40 MG (*)] 40 mg PO DAILY Hydrochlorothiazide [HCTZ (*)] 25 mg PO DAILY Melatonin [Melatonin 3 MG (*)] 3 mg PO HS PRN Stop: Amiodarone, Lasix BID, KCL BID PENDING STUDIES/LABS 1. CXR prior to surgical follow-up FOLLOW-UP 1. Harry Amaro, 12/30/17, 11:30 AM
--- NOTE | 2017-12-23 14:47 | ASMTLACE ---
LACE Length of stay for Answers: 7-13 days current admission Acuity / Level of Answers: Yes Care: Did the patient have an inpatient admission? Comorbidities - select Answers: Other Notes: HTN; Heart valve all that apply replacement # of Emergency department Answers: 1-2 visits in the last 6 months Score: 10 Date Signed: 12/23/2017 02:47 PM Electronically Signed By:Ana Luisa Wisdom RN
--- NOTE | 2017-12-23 14:54 | ASDISCHSUM ---
Discharge Information Plan Status:SNF Medically Cleared to Leave:12/23/2017 Discharge Date:12/23/2017 02:37 PM D/C Disposition:[facility]pc Facility ADT D/C Disposition:Fpc Facility Projected Discharge Date:12/16/2017 11:00 AM Transportation at D/C: Discharge Delay Reason: Follow-Up Date:12/16/2017 11:00 AM Discharge Slot: Final Diagnosis: Placement Information Referral Type:*Shelter/SNF Referral ID:[id number] Provider Name:[facility] Address 1:[address] Address 2: City:[place] Selection Factors: State:[place] Patient Contact Information Contact Name:OMKAR Relationship: Address:[address] City:[place] Alternate Phone: State/Zip Code:[place] [address] Email: Financial Information Financial Class:Medicare Primary Plan Desc:MEDICARE INPATIENT Primary Plan Number:[id number] Secondary Plan Desc:HUMANA Secondary Plan Number:[id number] Assessment Information [facility] CM Progress Note CM Note CM Note Notes: Patient admitted with SOB and hypotension. He is 10 days s/p AVR/ASC aorta, pacemaker placement. He was discharged from [facility] on 12/10 to [facility]. Patient is . He normally lives independently with his but has been rehabbing at [facility], per above. I called ; they will accept him back when medicall stable. Date Signed: 12/14/2017 09:09 AM Electronically Signed By:Courtney Samuel RN LACE JACKLYN Length of stay for Answers: 7-13 days current admission Acuity / Level of Answers: Yes Care: Did the patient have an inpatient admission? Comorbidities - select Answers: Other Notes: HTN; Heart valve all that apply replacement # of Emergency department Answers: 1-2 visits in the last 6 months Score: 10 Date Signed: 12/23/2017 02:47 PM Electronically Signed By:Ana Luisa Wisdom RN [facility] CM Progress Note CM Note CM Note Notes: I spoke with patient at length about discharge planning. He was not happy with his care at [facility] (he was there for 2 days HUC OB). I gave him a list of SNF and suggested other facilities in the area. His Thai will visit them and report back to us. I also called [facility] and explained patient's disatisfaction. They will reach out to him, per my request. Case Management will follow for SNF discharge planning. Date Signed: 12/15/2017 01:26 PM Electronically Signed By:Courtney Samuel RN [facility] CM Progress Note CM Note CM Note Notes: 12/16/2017 Case Management Note Met w/pt to discuss SNF preferences. Pt visited by [facility] rep today. [facility] rep to visit tomorrow. Pt prefers [facility] today because of recommendation from friends. [facility] accepted pt. Pt will not be returning to [facility]. Case Management d/c poc: to SNF rehab pending acceptance and pt choice. Case Management to follow. Date Signed: 12/16/2017 04:26 PM Electronically Signed By:Ana Luisa Wisdom RN [facility] CM Progress Note CM Note CM Note Notes: 12/19/2017 Case Management Note Debby from [facility] met w/pt and accepted him. Case Management d/c poc: [facility] Case Management to follow. Date Signed: 12/19/2017 05:05 PM Electronically Signed By:Ana Luisa Wisdom RN Case Management Discharge Plan Note Case Management Discharge Discharge Order Complete? Answers: Yes Patient to Obtain Answers: Other Notes: [facility] Transportation Arranged Answers: Other Notes: arranged by [facility] Faxed Final Orders Answers: Yes Agency/Facility Transfer Answers: Yes Report Printed & Faxed to Receiving Agency Discharge Comments Notes: 12/23/2017 Case Management Note pt discharged to [facility]. Faxed final orders. JULIÁN called report. Transport arranged by [facility] Date Signed: 12/23/2017 02:53 PM Electronically Signed By:Ana Luisa Wisdom RN Intervention Information Intervention Type:*IM-Signed Date of Service:12/23/2017 01:44 PM Patient Type:Inpatient Staff Member:Lee Ann Hartman Hours: Discipline: Severity: Comment:
--- NOTE | 2017-12-26 13:05 | PQFORM ---
yes PHYSICIAN QUERY FORM Needs Your Response This query form is being sent to you to assure this patient record is coded properly. Please respond to the question below: HIGH [employer]CHOOL PRINCIPAL QUESTION: Dear VIBHA Bello, In reviewing this patients medical record it is noted that the patient had the diagnosis of "acute respiratory failure." Noted in the H&P addendum dated patients oxygen needs increased and was on 10L with respiratory rate noted to be 31. In he SOAP note dated 12/13 patient was admitted with shortness of breath. In the Hospitalist progress notes dated 12/14-12/22 patient had the diagnosis of 'Acute respiratory failure." After study, should the diagnosis of "Acute respiratory failure" be included in the discharge summary? ___yes__ Yes No Unable to determine Other more appropriate diagnosis (please specify) Thank you EMILY Jon HIM/Coding Dept. [phone] INSTRUCTIONS FOR RESPONSE: Answer question by clicking on the "Edit Document" button. Move cursor to area below the stars. When complete, hit "Save." Click on the "Sign" button, then click "Sign" again. Type in your PIN and hit "Enter." MTDD
== END 2017-12-23 14:37 | DRG 270 ==
LOC: EDUNIT# → F2N 18:46 → F2W 12-15 14:05
PROVIDERS: ADMIT Family Medicine; ATTEND Family Medicine
PROC: 02H633Z Insertion of Infusion Device into Right Atrium, Percutaneous Approach (ICD-10-PCS; 2017-12-13)
PROC: 30233N1 Transfusion of Nonautologous Red Blood Cells into Peripheral Vein, Percutaneous Approach (ICD-10-PCS; 2017-12-16)
PROC: 0W9D0ZZ Drainage of Pericardial Cavity, Open Approach (ICD-10-PCS; principal; 2017-12-17 07:15)
PROC: 0W993ZZ Drainage of Right Pleural Cavity, Percutaneous Approach (ICD-10-PCS; 2017-12-19)
DX: I31.3 Pericardial effusion (noninflammatory) (principal); J96.00 Acute respiratory failure, unspecified whether with hypoxia or hypercapnia; N17.9 Acute kidney failure, unspecified; J90 Pleural effusion, not elsewhere classified; E86.0 Dehydration; I95.9 Hypotension, unspecified; D64.9 Anemia, unspecified; I25.10 Atherosclerotic heart disease of native coronary artery without angina pectoris; I10 Essential (primary) hypertension; Z95.3 Presence of xenogenic heart valve; Z95.0 Presence of cardiac pacemaker
CPT/HCPCS: 92610-GN; 97116-GP; 97140-GP; 97162-GP; 97166-GO; 97530-GP; 97535-GO; C1751; G8978-GP-CK; G8979-GP-CI; G8987-GO-CJ; G8988-GO-CI; G8996-GN-CH; G8997-GN-CH; G8998-GN-CH; J0171; J0690; J1265; J1650; J1940; J2001; J2405; J2543; J2704; J3010; J3370; P9016; P9041

== ENCOUNTER → 2017-12-30 | Outpatient (CLI) | payer OTHER | LOC: FIMAGING 10:47 | PROVIDERS: ATTEND Thoracic Surgery (Cardiothoracic Vascular Surgery) | DX: Z09 Encounter for follow-up examination after completed treatment for conditions other than malignant neoplasm (principal); J90 Pleural effusion, not elsewhere classified; Z98.890 Other specified postprocedural states ==

== ENCOUNTER 2018-01-08 10:30 | Inpatient (IN) | payer OTHER ==
[2018-01-08] MEDS ORDERED: ceFAZolin 2 GM/SWFI 2 GM/20 ML SYR IVP ONE (10:56)
[2018-01-08] MEDS ORDERED: LR 1,000 ML IV ONE (10:58)
[2018-01-08] MEDS ORDERED: LIDOCAINE 1% 2 ML INJ ID PRN (10:58)
[2018-01-08] MEDS ORDERED: ceFAZolin 2 GM/DEXTROSE 100 ML IV ONE (11:00)
--- NOTE | 2018-01-08 12:27 | PDANEPAE ---
ANE Past Medical History - Cardiovascular History Hx Hypertension: Yes Hx Arrhythmias: No Hx Chest Pain: No Hx Coronary Artery / Peripheral Vascular Disease: No Hx CHF / Valvular Disease: Yes Hx Palpitations: No Cardiovascular History Comment: htn. aortic regurg. thoracic ascending aortic aneurysm - Pulmonary History Hx COPD: No Hx Asthma/Reactive Airway Disease: No Hx Recent Upper Respiratory Infection: No Hx Oxygen in Use at Home: No Hx Sleep Apnea: No Sleep Apnea Screening Result - Last Documented: Negative Pulmonary History Comment: sarah triggers - Neurologic History Hx Cerebrovascular Accident: No Hx Seizures: No Hx Dementia: No - Endocrine History Hx Diabetes: No Hypothyroid: No Hyperthyroid: No - Renal History Hx Renal Disorders: No Renal History Comment: prostate ca 2010 with radiation - Liver History Hx Hepatic Disorders: No - Neurological & Psychiatric Hx Hx Neurological and Psychiatric Disorders: No - Cancer History Hx Cancer: Yes Cancer History Comment: prostate - Congenital Disorder History Hx Congenital Disorders: No - GI History GERD: moderate Hx Gastrointestinal Disorders: Yes Gastrointestinal History Comment: GERD. hx of barretts esophagus. hx of EGD's - Other Health History Other Health History: wearing glasses temporarily d/t cataract surgery - Chronic Pain History Chronic Pain: No - Surgical History Prior Surgeries: bilateral cataract surgery 09/15/17. right ankle repair. tonsillectomy. cancerous cyst removed from waistline. external beam radation for prostate ca 2009 ANE Review of Systems Review of Systems: - Exercise capacity METS (RN): 5 METS - Pacemaker Pacemaker Rat Poisoner: Medtronic Pacemaker Model: SV782-91 Pacemaker Set Rate: 70 ANE Patient History - Allergies Allergies/Adverse Reactions: ciprofloxacin [From Cipro] Allergy (Verified 01/08/18 11:18) Other-Enter Comments levofloxacin [From Levaquin] Allergy (Verified 01/08/18 11:18) Other-Enter Comments - Home Medications Home Medications: Omeprazole 20 mg PO DAILY 11/17/17 [Last Taken 01/07/18] Sennosides/Docusate Sodium [Senokot-S] 1 - 2 tab PO BID PRN 12/12/17 [Last Taken 01/07/18] - NPO status NPO Since - Liquids (Date): 01/07/18 NPO Since - Liquids (Time): 22:30 NPO Since - Solids (Date): 01/07/18 NPO Since - Solids (Time): 22:30 - Anes Hx Hx Anesthesia Complications (with details): DECREASED TASTE FOR 3 WEEKS POST-OP - Smoking Hx Smoking Status: Never smoked Marijuana use: No - Alcohol Use Alcohol Use: Rarely - Family Anes Hx Family Anes Hx: neg - N/A Family Hx Anesthesia Complications: NONE ANE Labs/Vital Signs - Vital Signs Blood Pressure: 112/66 Heart Rate: 77 Respiratory Rate: 18 O2 Sat (%): 93 Height: 162.56 cm Weight: 50.802 kg ANE Physical Exam - Airway Neck exam: FROM Mallampati Score: Class 1 Mouth exam: normal dental/mouth exam - Pulmonary Pulmonary: no respiratory distress, no rales or rhonchi, clear to auscultation - Cardiovascular Cardiovascular: regular rate and rhythym ANE Anesthesia Plan Anesthesia Plan: general endotracheal anesthesia Total IV Anesthesia: No
[2018-01-08] MEDS ORDERED: BUPIVACAINE 0.25% 30 ML SDV ONE (12:54)
[2018-01-08] MEDS ORDERED: THROMBIN (BOVINE) 20,000 UNIT SPRAY TP ONE (12:54)
[2018-01-08] MEDS ORDERED: PROTAMINE SULFATE 50 MG/5 ML VIAL IVP ONE (12:54)
[2018-01-08] MEDS ORDERED: THROMBIN (BOVINE) 5,000 UNIT VIAL TP ONE (12:54)
[2018-01-08] MEDS ORDERED: PAPAVERINE HCL 60 MG/2 ML SDV ONE (12:55)
--- NOTE | 2018-01-08 13:15 | PDHPUP ---
History & Physical Update H&P update statement: This history and physical update is based on an assessment of the patient which was completed after admission or registration (within 24 hours), but prior to the surgery/procedure. H&P update: H&P reviewed & patient examined, no change in patient's condition since H&P completed H&P changes: no change
--- NOTE | 2018-01-08 13:19 | PDGENHP ---
History & Physical Chief Complaint: INFECTED RIGHT AXILLARY GRAFT History of Present Illness: MALW WITH RT AXILLARY ACCESS FOR AORTIC ARCH RECONSTRUCTION ONE MONTH AGO WITH RESIDUAL DACRON TUBE ATACHED TO AXILLARY ARTERY. NOW PRESENTS INFECTED WITH SUBCUTANEOUS PURULENCE. ADMIT FOR GRAFT REMOVAL AND REPAIR. RISKS AND OPTIONS FULLY DISCUSSED INCLUDING INFECTION. RUPTURE, OR THROMBOSIS Pertinent Past, Social, Family History: PMH: AORTIC ARCH RECONSTRUTION, CATARACT SURGERY, TONSILS, ANKLE FX. ROS FULL 10 PT REVIEW REVEALS GERD, HTN, PROSTATE CA, AORTIC REGURG. FAM HX NONCONTRIBUTORY. ALL: CIPRO. MEDS HCTZ, LYCOPENE. SOC: NONSMOKER Relevant Physical Exam: GEN FRAIL BUT ACTIVE 82 MALE, AFEBRILE. HEENT NONICTERIC, NO BRUITS. CHEST CLEAR, STERNOTOMY SCAR, RED FLUCTUANT INCISION RT DELTOPECTORAL AREA. COR RR, PACER IN PLACE. ABD SOFT. EXTREM OK. NEURO OK. PSYCH ALERT, ORIENTED COOPERATIVE Cardiorespiratory Assessment: IMP: INFECTED AXILLARY ARTERY GRAFT. PLAN REMOVAL DRAINAGE AND REPAIR, RISKS AND OPTIONS FULLY DISCUSSED
[2018-01-08] MEDS ORDERED: PROPOFOL 200 MG/20 ML VIAL ONE (13:50)
[2018-01-08] MEDS ORDERED: fentaNYL 100 MCG/2 ML INJ ONE ×2 (13:50→14:34)
[2018-01-08] MEDS ORDERED: ONDANSETRON 4 MG/2 ML VIAL ONE (13:51)
[2018-01-08] MEDS ORDERED: LIDOCAINE 2% 5 ML SDV ONE (13:52)
[2018-01-08] MEDS ORDERED: ROCURONIUM 50 MG/5 ML VIAL ONE (13:52)
[2018-01-08] MEDS ORDERED: PROMETHAZINE HCL 25 MG/ML INJ IVP PRN (13:57)
[2018-01-08] MEDS ORDERED: NALOXONE HCL 0.4 MG/ML INJ IVP PRN (13:57)
[2018-01-08] MEDS ORDERED: ONDANSETRON 4 MG/2 ML VIAL IVP PRN ×2 (13:57→18:44)
[2018-01-08] MEDS ORDERED: PHENYLEPHRINE HCL 100 MCG/ML SYR IVP PRN (13:57)
[2018-01-08] MEDS ORDERED: oxyCODONE IR 5 MG TAB PO PRN (13:57)
[2018-01-08] MEDS ORDERED: LR 500 ML IV PRN (13:57)
[2018-01-08] MEDS ORDERED: fentaNYL 100 MCG/2 ML INJ IVP PRN (13:57)
[2018-01-08] MEDS ORDERED: ACETAMINOPHEN 500 MG TAB PO PRN (13:57)
[2018-01-08] MEDS ORDERED: HYDROCODONE/APAP 5/325 TAB PO PRN (13:57)
[2018-01-08] MEDS ORDERED: DEXAMETHASONE 4 MG/ML VIAL ONE (14:04)
[2018-01-08] MEDS ORDERED: PHENYLEPHRINE HCL 100 MCG/ML SYR ONE ×2 (14:32→15:27)
[2018-01-08] MEDS ORDERED: HEPARIN 10,000 UNIT/10 ML MDV (1,000 UNIT/ML) ONE (15:03)
[2018-01-08] MEDS ORDERED: BACITRACIN 50,000 UNITS/10 ML SYR IRR ONE ×2 (16:03→16:04)
[2018-01-08] MEDS ORDERED: PHENYLEPHRINE 10 MG/ML SDV ONE (16:04)
--- NOTE | 2018-01-08 17:59 | POSTANESTH ---
Post Anesthetic Evaluation Cardiovascular Status: Normal, Stable Respiratory Status: Normal, Stable Level of Consciousness/Mental Status: Can Participate in Eval Pain Control: Adequate, Prn Tx Ordered Nausea/Vomiting Control: Adequate, Prn Tx Ordered Complications Possibly Related to Anesthesia: None Noted
[2018-01-08] MEDS ORDERED: OXYCODONE/APAP 5/325 TAB PO PRN (18:44)
[2018-01-08] MEDS ORDERED: HYDROmorphONE/DILAUDID 1 MG/ML INJ IVP PRN (18:44)
--- NOTE | 2018-01-08 18:53 | POSTOPPROG ---
Post Op Note Date of Operation: 01/08/18 Surgeon: Pato Aparicio Art Director: eleazar Anesthesiologist: phong Anesthesia: GET(General Endotracheal) Pre-op Diagnosis: infected right axillary artery graft Post-op Diagnosis: same Indication: infection Procedure: removal infected rt axillary arterial graft with vein patch repair and musc Findings: infected rt axillary artery graft Inf/Abcess present in the surg proc area at time of surgery?: Yes Depth: Deep Incisional (Fascial) EBL: 50-100 Complications: 0 Specimen(s): graft and culture
--- NOTE | 2018-01-08 19:34 | SOAPPROG ---
SOAP Progress Note Assessment/Plan: Assessment: Postop right axillary artery repair/doing well/good arm pulses Plan: Dressing change in the a.m. 01/08/18 19:34 Objective: Vital Signs Temp Pulse Resp BP Pulse Ox 36.5 C 71 19 129/87 H 96 01/08/18 18:47 01/08/18 18:47 01/08/18 18:47 01/08/18 18:47 01/08/18 18:47 Microbiology 01/08/18 14:34 Gram Stain - Final Chest - Eswab 01/08/18 14:34 Mycobacterial Smear (EUGENIE) - Final Chest - Eswab Mycobacterial Culture - Final 01/07/18 01/08/18 01/09/18 05:59 05:59 05:59 Intake Total 1950 Output Total 475 Balance 1475 ICD10 Worksheet Patient Problems: Problems Problem Status Onset Acute blood loss anemia Acute Coronary atherosclerosis Acute Dehydration Acute Pericardial effusion Acute Pleural effusion Acute S/P ascending aortic replacement Acute ~12/04/17 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
[2018-01-08] MEDS: ERTAPENEM 1 GM in NS 100 ML IV SCH (19:50)
[2018-01-08] MEDS: D5W 1/2 NS W/ 20 KCl/L 1,000 ML IV SCH (21:03)
[2018-01-08] MEDS: DOCUSATE SODIUM 100 MG CAP PO SCH (22:47)
[2018-01-08] MEDS: ALPRAZolam 0.25 MG TAB PO PRN (22:47)
[2018-01-08] MEDS: MELATONIN 3 MG TAB PO PRN (22:47)
[2018-01-09] MEDS: ERTAPENEM 1 GM in NS 100 ML IV SCH (08:22)
[2018-01-09] MEDS: ASPIRIN EC 81 MG TAB PO SCH (08:22)
[2018-01-09] MEDS: DOCUSATE SODIUM 100 MG CAP PO SCH ×2 (08:22→21:07)
--- NOTE | 2018-01-09 10:19 | ASMTCASEMG ---
Living Arrangements What is your living Answers: With Spouse arrangement? Who do you live with? Type Of Residence What kind of residence do Answers: House you live in? Discharge Plan Comments Coordination Status Comments Notes: Pt is a 82 y/o man admitted for sotalol. Pt had surgery w/ Dr. Aparicio. Pt was recently here at [facility] on 12/12/17 to 12/23/17 for pericardial effusion and went to [facility] for rehab. Needs are TBD at this time. CM to follow. Plan: TBD Date Signed: 01/09/2018 10:18 AM Electronically Signed By:GOGO Deleon
[2018-01-09] MEDS: D5W 1/2 NS W/ 20 KCl/L 1,000 ML IV SCH (11:58)
--- NOTE | 2018-01-09 14:44 | GCON ---
[f rep st] CONSULTATION INFECTIOUS DISEASE CONSULTATION DATE OF CONSULTATION: 01/09/2018 REASON FOR CONSULTATION: Right axillary graft infection/abscess associated postoperative from aortic valve replacement and hemiarch replacement on 12/04/2017. HPI: V[age]ta[age]-old male with a past medical history of severe aortic regurgitation and thoraci c aortic aneurysm, whose current problems date back to 12/04/2017, when he underwent an aortic valve replacement and hemiarch replacement for the above previous mentioned problems. As a part of this pr ocedure, there was a right axillary graft placement for bypass procedures. His postoperative course included some postop expected bleeding and a transfusion of 4 units of blood, atrial fibrillation, an d complete heart block, status post pacemaker placement 12/05/2017. The patient was discharged from his original hospitalization on 12/10 and returned on 12/12, with severe shortness of breath and hypo tension. Patient was found to have a small pericardial effusion with pre-tamponade physiology. He e ventually underwent a pericardial window on 12/17/2017. Also had acute renal failure and leukocytosi s on the day of admission. Initially, patient was given IV antibiotics from 12/12 to 12/18, but was discontinued once infection was excluded. Patient underwent a pericardial window as well as right th oracentesis with removal of 900 cc of fluid. Patient was then discharged on 12/23/2017. Initially w ent to [facility], but then was discharged home and was seen by CT surgery on 01/07, complaining of 1 d ay of swelling over the right axillary graft site. This area was aspirated and General Surgery was c onsulted, who subsequently patient underwent removal of the right infected axillary graft and a vein patch was used for repair on 01/08/2018. Gram stain from the OR is negative. Patient was empiricall y started on IV ertapenem on 01/08. The patient denies any associated fevers, chills, night sweats. Minimal pain associated with the area. He simply noticed swelling. PAST MEDICAL HISTORY: Aortic regurgitation, gastroesophageal reflux disease, hypertension, prostate cancer, thoracic ascending aortic aneurysm. PAST SURGICAL HISTORY: Repair of ankle fracture, cataract surgery, pericardial window, replacement o f aortic root and ascending or aorta, thoracentesis and aortic valve replacement, and tonsillectomy. SOCIAL HISTORY: No alcohol, no tobacco. He is . 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 He is originally from [place], lived in [place] and eventually made his way to [place]. FAMILY HISTORY: Positive for cancer. ALLERGIES: Patient states an allergy to Levaquin and Cipro with mild muscle and tendon pain when he previously took these medicines. MEDICATION LIST: Ertapenem 1 g IV daily, aspirin 81 mg daily, Xanax as needed, melatonin as needed, Dilaudid as needed, oxycodone as needed, and he is on potassium replacement. REVIEW OF SYSTEMS: A complete 10-point review of systems was performed and is negative except as men tioned in the HPI. PHYSICAL EXAM: VITAL SIGNS: Blood pressure 86/47, heart rate 70, respiratory rate 16, saturation 98 % on room air, temperature 37.1. He has been afebrile throughout his hospital course. GENERAL: Simran de paz is a pleasant, conversational male sitting up in a chair, no acute distress. HEENT: Surgical pupi ls, reactive. Oropharynx: Moist mucous membranes. Fair dentition. NECK: Supple. No lymphadenopa thy. CARDIOVASCULAR: Regular rate. No murmurs. CHEST: Clear to auscultation bilaterally. Midlin e sternotomy scar is well healed with no abnormalities. ABDOMEN: Soft, nontender. EXTREMITIES: No edema. No joint swelling. SKIN: Patient's surgical site right upper chest wall with a 4-cm packed wound without surrounding erythema present. No tenderness to palpation. NEUROLOGICALLY: He is todd rt and oriented x4. Moving all 4 extremities equally. LABORATORY: Creatinine 0.9, AST 45, ALT 58, alkaline phosphatase 118, albumin 2.5. White count 7.8 on admission, was 9.9, hematocrit 37, platelets of 159, 78% neutrophils. Microbiology: Two separate samples were sent from the OR. Both Gram stains are negative. Cultures are pending. Wound aspirat e from 01/07/2018 is no growth to date. Gram stain was not performed. ASSESSMENT/PLAN: Cfxanu-ast-mzeh-old male with recent surgery on December 04, involving an aortic valve replacement and hemiarch replacement, now with postop infection related to axillary graft, now statu s post removal. Cultures are pending. Recommend discontinuation of ertapenem as gram-negative etiol ogy is unlikely. Would recommend directing therapy at MSSA and Streptococcus. No residual signs of infection on exam today. We will await cultures. Patient likely needs a 7-10 day total course of an tibiotics, which could be completed with oral antibiotics. We will talk to Surgical team regarding t iming of closure of the wound. Thank you for this consultation. We will continue to see him on a daily basis. /[id number]/MODL
--- NOTE | 2018-01-09 16:08 | SOAPPROG ---
SOAP Progress Note Assessment/Plan: Assessment: Postop right axillary artery repair/doing well/good arm pulses Plan: Dressing change in the a.m. 01/08/18 19:34 01/09/18 16:07 Doing very well and wants to go home/afebrile/arm function normal/wound okay Will observe in the hospital with dressing changes for another 24 hr and then possibly home on oral antibiotics per ID recommendation Objective: Vital Signs Temp Pulse Resp BP Pulse Ox 36.5 C 70 15 112/61 94 01/09/18 16:00 01/09/18 16:00 01/09/18 16:00 01/09/18 16:00 01/09/18 16:00 Microbiology 01/08/18 15:31 Gram Stain - Final Chest - Other 01/08/18 14:34 Gram Stain - Final Chest - Eswab 01/08/18 15:31 Mycobacterial Smear (EUGENIE) - Final Chest - Other 01/08/18 14:34 Mycobacterial Smear (EUGENIE) - Final Chest - Eswab Mycobacterial Culture - Final 01/08/18 01/09/18 01/10/18 05:59 05:59 05:59 Intake Total 2050 915 Output Total 675 Balance 1375 915 ICD10 Worksheet Patient Problems: Problems Problem Status Onset Acute blood loss anemia Acute Coronary atherosclerosis Acute Dehydration Acute Pericardial effusion Acute Pleural effusion Acute S/P ascending aortic replacement Acute ~12/04/17 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
--- NOTE | 2018-01-09 16:30 | PDMN ---
Medical Necessity Medical necessity: Change to IP, as of 01/09/18, per FILLING AND PACKING SUPERVISOR; los >2 mn for ongoing management of R axillary graft infection/abscess s/p aortic valve & hemiarch replacement; now s/p graft removal POD #1; admit for further monitoring, ID consult, IV abx, IVFs & wound care; per progress notes & order 01/09/18
--- NOTE | 2018-01-09 21:56 | WOCRNPDOC ---
WOCRYovanny Advanced Assessment Note - Skin Integrity Problem, Advanced Assess Right Upper Axilla Dressing Type: Gauze, Kerlix (packing), Other Other Dressing Type: Medipore tape Dressing Description: Intact, Shadowed Closure Description: Not Approximated Exudate Amount: Moderate Exudate Color: Red, Reddish/Yellow Exudate Characteristic(s): Bloody, Serosanguinous Integumentary Issue Intervention: Dressing Changed Yadira Wound Tissue: Intact Wound Bed Color: Lomira Wound Bed Constitution: Red/[place] - Non Granular Tissue, Tunneling (12 o'clock 3.8cm), Undermining (12-2 o'clock 1 cm) Wound Edges: Well Defined Site Measurement - Head-to-Toe Length X Width X Depth (cm): 3x5.2x2.3 Skin Integrity Problem Comment: Patient with a recent surgical debridement of a graft site, distal to right clavicle. Wound cleaned with NS and gauze. One piece white foam cut into narrow stip and quided with blunt end of qtip to fill tunnel with tail positioned to follow the contour of clavicle. One small simplace foam cut to fit wound bed, with a second piece of black foam added for track pad. Wound draped and good seal achieved at -125mm Hg suction. Patient tolerated the procedure well. Patient had an extensive list of questions and concerns. All questions answered. Wound care will round again on Friday.
[2018-01-09] MEDS: ALPRAZolam 0.25 MG TAB PO PRN (22:29)
[2018-01-10] MEDS: D5W 1/2 NS W/ 20 KCl/L 1,000 ML IV SCH ×2 (01:40→17:26)
[2018-01-10] MEDS: DOCUSATE SODIUM 100 MG CAP PO SCH ×2 (08:30→20:47)
[2018-01-10] MEDS: ASPIRIN EC 81 MG TAB PO SCH (08:30)
--- NOTE | 2018-01-10 13:16 | ASMTCMCOM ---
CM Note CM Note Notes: PT/OT not ordered. Pt ambulating in the halls with standby assist. Wound vac noted. Spoke with RN; unsure if pt will need a home wound vac; CM to discuss with Surgical Team. Wound Care currently following pt for dressing changes. Pt may need HHC RN at time of dc. ID also following pt. Pt currently on IV abx, but anticipate transition to PO abx. CM will follow. Dc poc-TBD Date Signed: 01/10/2018 01:15 PM Electronically Signed By:Sarah Guillen RN
--- NOTE | 2018-01-10 14:33 | PCMIDPN ---
Assessment/Plan: 1. Postoperative axillary graft infection status post graft removal with artery repair and wound VAC placement: At this time, after speaking with the case fitter, it is unclear whether not the patient will need to go home with a wound VAC. She is waiting to hear from General surgery. From my perspective, would continue Ancef while he is in-house , then transition to oral Keflex upon discharge to complete 10 days of therapy. No other new recommendations. He does need baseline blood work drawn and this was ordered today. Subjective: Frustrated about not being able to sleep with the wound VAC on. Wondering if it can be taken off. No diarrhea. No nausea or vomiting. Wants to go home when he is able to. Objective: Ancef 1 g IV q.8 hours day 1 (antibiotics day 2) No fevers Vital Signs Temp Pulse Resp BP Pulse Ox 36.6 C 83 17 127/71 H 96 01/10/18 12:00 01/10/18 12:00 01/10/18 12:00 01/10/18 12:00 01/10/18 12:00 Microbiology 01/08/18 15:31 Gram Stain - Final Chest - Other 01/08/18 14:34 Gram Stain - Final Chest - Eswab 01/08/18 15:31 Mycobacterial Smear (EUGENIE) - Final Chest - Other 01/09/18 01/10/18 01/11/18 05:59 05:59 05:59 Intake Total 2050 3352 55 Output Total 675 650 300 Balance 1375 2702 -245 No CBC or CMP during this hospitalization G stain of axillary wound/graft: 4+ PMNs, no growth so far - Physical Exam General Appearance: other (Elderly male, wrapped up in a blanket sitting in chair, no apparent distress.) EENT: No scleral icterus, No thrush Respiratory: lungs clear Cardiac/Chest: regular rate, rhythm, systolic murmur, other (Mechanical click. Chest wall on the right with wound VAC in place. No surrounding erythema. 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
[2018-01-10 15:07] LABS: PLATELET COUNT 124 10^3/uL (150-400)
--- NOTE | 2018-01-10 16:10 | SOAPPROG ---
KAVIN Progress Note Assessment/Plan: Assessment: Postop right axillary artery repair/doing well/good arm pulses Plan: Dressing change in the a.m. 01/08/18 19:34 01/09/18 16:07 Doing very well and wants to go home/afebrile/arm function normal/wound okay Will observe in the hospital with dressing changes for another 24 hr and then possibly home on oral antibiotics per ID recommendation 01/10/18 16:09 Doing well status post removal infected axillary artery graft/afebrile/arm pulses good/minimal pain/wound VAC in place Plan continue IV antibiotics and wound VAC /probably home on Friday on oral antibiotics Objective: Vital Signs Temp Pulse Resp BP Pulse Ox 36.8 C 81 14 118/66 92 01/10/18 15:18 01/10/18 15:18 01/10/18 15:18 01/10/18 15:18 01/10/18 15:18 Microbiology 01/08/18 15:31 Gram Stain - Final Chest - Other 01/08/18 14:34 Gram Stain - Final Chest - Eswab 01/08/18 15:31 Mycobacterial Smear (EUGENIE) - Final Chest - Other Laboratory Results 01/10/18 14:30 01/10/18 14:30 01/09/18 01/10/18 01/11/18 05:59 05:59 05:59 Intake Total 8149 5734 55 Output Total 354 022 300 Balance 6605 5715 -900 ICD10 Worksheet Patient Problems: Problems Problem Status Onset Acute blood loss anemia Acute Coronary atherosclerosis Acute Dehydration Acute Pericardial effusion Acute Pleural effusion Acute S/P ascending aortic replacement Acute ~12/04/17 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
[2018-01-10] MEDS: ALPRAZolam 0.25 MG TAB PO PRN (22:07)
[2018-01-11] MEDS: D5W 1/2 NS W/ 20 KCl/L 1,000 ML IV SCH (05:59)
[2018-01-11] MEDS: DOCUSATE SODIUM 100 MG CAP PO SCH ×2 (09:32→21:27)
[2018-01-11] MEDS: ASPIRIN EC 81 MG TAB PO SCH (09:32)
--- NOTE | 2018-01-11 09:35 | PCMIDPN ---
Assessment/Plan: # Post op infection associated with R axillary graft for AVR/aortic graft replacement, s/p removal of graft 01/08/2018. No residual signs of infection; reviewed microbiology with patient at bedside, which all cultures from the OR are negative. Reviewed that cultures may be negative due to antibiotics prior to debridement. --continue ancef, plan to change to PO Keflex 500mg PO TID to complete a total of 14 days of antibiotics. (i.e. If discharged tomorrow give 9 more days) --call ID for additional questions --no ID follow-up needed --agree with wound VAC management Meds Ancef 1 g IV q.8 hours day 2 (antibiotics day 4) Subjective: No specific complaints today Objective: Vital Signs Temp Pulse Resp BP Pulse Ox 36.7 C 77 20 138/76 H 93 01/11/18 07:44 01/11/18 07:44 01/11/18 07:44 01/11/18 07:44 01/11/18 07:44 Microbiology 01/08/18 15:31 Gram Stain - Final Chest - Other 01/08/18 14:34 Gram Stain - Final Chest - Eswab Laboratory Results 01/10/18 14:30 01/10/18 14:30 01/10/18 01/11/18 01/12/18 05:59 05:59 05:59 Intake Total 3352 2958 Output Total 650 2250 300 Balance 2702 708 -300 - Physical Exam General Appearance: no apparent distress Respiratory: other (Right upper chest wall without signs of erythema, wound VAC in place) Extremities: No pedal edema Skin: No rash Neuro/Psych: alert, normal mood/affect, oriented x 3 - Time Spent With Patient Time Spent with Patient: greater than 25 minutes (Care coordinated with case management) Time Spent with Patient: Greater than 25 minutes spent on this patients care, greater than 50% of time spent counseling, educating, and coordinating care regarding the above mentioned plan. 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
--- NOTE | 2018-01-11 12:17 | SOAPPROG ---
KAVIN Progress Note Assessment/Plan: Assessment: Postop right axillary artery repair/doing well/good arm pulses Plan: Dressing change in the a.m. 01/08/18 19:34 01/09/18 16:07 Doing very well and wants to go home/afebrile/arm function normal/wound okay Will observe in the hospital with dressing changes for another 24 hr and then possibly home on oral antibiotics per ID recommendation 01/10/18 16:09 Doing well status post removal infected axillary artery graft/afebrile/arm pulses good/minimal pain/wound VAC in place Plan continue IV antibiotics and wound VAC /probably home on Friday on oral antibiotics 01/11/18 12:10 Afebrile / comfortable / wound VAC in place/ cultures no growth so far / home in the a.m. with wound VAC Objective: Vital Signs Temp Pulse Resp BP Pulse Ox 36.7 C 77 20 138/76 H 93 01/11/18 07:44 01/11/18 07:44 01/11/18 07:44 01/11/18 07:44 01/11/18 07:44 Microbiology 01/08/18 14:34 Gram Stain - Final Chest - Eswab 01/08/18 15:31 Gram Stain - Final Chest - Other Laboratory Results 01/10/18 14:30 01/10/18 14:30 01/10/18 01/11/18 01/12/18 05:59 05:59 05:59 Intake Total 3352 2958 Output Total 650 2250 725 Balance 2702 708 -725 ICD10 Worksheet Patient Problems: Problems Problem Status Onset Acute blood loss anemia Acute Coronary atherosclerosis Acute Dehydration Acute Pericardial effusion Acute Pleural effusion Acute S/P ascending aortic replacement Acute ~12/04/17 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
--- NOTE | 2018-01-11 16:07 | ASMTCMCOM ---
CM Note CM Note Notes: Spoke with MD; pt will need a home wound vac ordered. Called Lelo, at [facility], but she is out of town until 01/13; Vlad covering, but not available until Friday 01/12. Wound Vac Authorization Form completed & placed in pt's chart; awaiting MD's signature; MD & RN aware. [facility] referral also sent via [employer]. [facility] currently out of home wound vacs; expected delivery on Friday 01/12. CM will follow. Dc poc: home w/wound vac Date Signed: 01/11/2018 04:07 PM Electronically Signed By:Sarah Guillen RN
[2018-01-11] MEDS: ALPRAZolam 0.25 MG TAB PO PRN (21:30)
[2018-01-11] MEDS: MELATONIN 3 MG TAB PO PRN (21:30)
[2018-01-12] MEDS ORDERED: ALPRAZolam 0.25 MG TAB PO PRN (07:36)
[2018-01-12] MEDS ORDERED: MELATONIN 3 MG TAB PO PRN (07:36)
[2018-01-12] MEDS ORDERED: SENNOSIDES/DOCUSATE SODIUM TAB PO PRN (07:36)
[2018-01-12] MEDS: DOCUSATE SODIUM 100 MG CAP PO SCH (08:25)
[2018-01-12] MEDS: ASPIRIN EC 81 MG TAB PO SCH (08:28)
[2018-01-12] MEDS ORDERED: HYDROCHLOROTHIAZIDE 25 MG TAB PO SCH (09:00)
[2018-01-12] MEDS ORDERED: PANTOPRAZOLE SODIUM 40 MG TAB PO SCH (09:00)
[2018-01-12] MEDS ORDERED: METOPROLOL TARTRATE 25 MG TAB PO SCH (09:00)
[2018-01-12] MEDS ORDERED: ASPIRIN 81 MG CHEWABLE TAB PO SCH (09:00)
[2018-01-12 11:25] VITALS: BP 115/65
--- NOTE | 2018-01-12 11:52 | WOCRNPDOC ---
WOCRN Advanced Assessment Note - Skin Integrity Problem, Advanced Assess Right Upper Axilla Dressing Type: Gauze, Tegaderm Film Dressing Description: Intact, Shadowed Closure Description: Not Approximated Exudate Amount: Minimal Exudate Color: Red Exudate Characteristic(s): Serosanguinous Integumentary Issue Intervention: Dressing Applied Yadira Wound Tissue: Swollen Yadira Wound Swelling: Mild Wound Bed Color: Red, Yellow Wound Bed Constitution: Granulation Tissue (30%), Red/[place] - Non Granular Tissue (20%), Tunneling (12 oclock 3.5cm), Undermining (1cm from 12-2 oclock), Muscle (30%), Subcutaneous Fat (20%) Wound Edges: Attached, Not Attached (undermining 12-2 oclock), Irregular Site Measurement - Head-to-Toe Length X Width X Depth (cm): 3.1x5.3x1.7 Skin Integrity Problem Comment: Wound vac had been taken down by Austin Aparicio, and covered with gauze and tegaderm. Dressing removed, wound bed cleaned with normal saline and periwound gently patted dry. Wound explored with cotton tipped applicator, tunnel located at 12 oclock, which extends approximately 3.5cm along the sagittal plane. Clavicle noted along lateral superior aspect of wound, with deepest point of wound along medial edge. One piece of small white foam placed in tunnel. Periwound prepared with mastisol, then drape applied. Total foam: x1 white, x2 black simplace. One piece of small black simplace foam placed in wound bed, with thinner portion placed within undermining of wound bed. One small piece of black simplace foam placed on top for track pad, then entire dressing covered with drape. Wound vac attached, and set to continuous suction at -125mmHg, without leaks. Home vac attachment education provided to Adelaida GALLEGO for patient discharge. Patient stated that next wound vac would happen outpatient with Dr. Aparicio on Friday, then possible surgical closure of wound later this week. Discharge education provided to patient re: home vac settings, alarms, changing canisters, and customer service numbers.
--- NOTE | 2018-01-12 12:46 | PDIAF ---
- Diagnosis Code Status: Full Code - Medication Management Discharge Medications: Medications to Continue on Transfer Omeprazole 20 mg PO DAILY 11/17/17 [Last Taken 01/07/18] Aspirin [Aspirin 81mg (*)] 81 mg PO DAILY tab.chew 12/10/17 [Last Taken ] Metoprolol Tartrate [Lopressor 25 mg (*)] 12.5 mg PO BID tab 12/10/17 [Last Taken 01/07/18] Sennosides/Docusate Sodium [Senokot-S] 1 - 2 tab PO BID PRN 12/12/17 [Last Taken 01/07/18] ALPRAZolam [Xanax 0.25 MG (*)] 0.25 mg PO BID PRN tab 12/23/17 [Last Taken ] Hydrochlorothiazide [HCTZ (*)] 25 mg PO DAILY tab 12/23/17 [Last Taken 01/07/18 ] Melatonin [Melatonin 3 MG (*)] 3 mg PO HS PRN tab 12/23/17 [Last Taken 01/07/18 ] Cephalexin 500 mg PO Q8HRS 9 Days #27 tablet 01/12/18 [Last Taken Unknown] oxyCODONE/APAP 5/325 [Percocet 5/325 (*)] 1 - 2 tab PO Q4 PRN #15 tab 01/12/18 [ Last Taken Unknown] Skilled Nursing Antibiotic Stop Date: 01/21/18 Discharge Medications: Refer to the Discharge Home Medication list for PRN reason. - Orders Services needed: Home Care, Registered Nurse Home Care Face to Face: I certify that this patient was under my care and that I had the required [id number] encounter meeting the encounter requirements on the discharge day. My findings support the fact that the patient is homebound as defined in Home Care Face to Face Continued: CMS Chapter 7 Medicare Benefits Manual 30.1.1 , The condition of the patient is such that there exists a normal inability to leave home and consequently, leaving home would require a considerable and taxing effort. Isolation Type: None Diet Recommendation: no restrictions on diet Diet Texture: Regular Texture Diet Additional Instructions: Avoid heavy lifting. Wound vac changes on //. Ok to shower on days that you have your wound vac changed. Do not soak in a tub or pool. Call with fever or chills. Follow up with Dr. Aparicio in our office on Friday. - Follow Up Care Current Providers and Referrals: Mykel Mccarthy DO [Primary Care Provider] - Pato Aparicio MD [Medical Doctor] - 01/16/18
--- NOTE | 2018-01-12 15:10 | ASMTLACE ---
LACE Length of stay for Answers: 2 days current admission Acuity / Level of Answers: Yes Care: Did the patient have an inpatient admission? Comorbidities - select Answers: Any tumor (including all that apply lymphoma or leukemia) Other Notes: aortic arch reconstruction, HTN # of Emergency department Answers: 1-2 visits in the last 6 months Score: 9 Date Signed: 01/12/2018 03:10 PM Electronically Signed By:Ana Luisa Wisdom RN
--- NOTE | 2018-01-13 10:40 | ASDISCHSUM ---
Discharge Information Plan Status:Home with No Needs Medically Cleared to Leave:01/12/2018 Discharge Date:01/12/2018 04:37 PM D/C Disposition:Home, Routine, Self-Care ADT D/C Disposition:Home Health Service Projected Discharge Date:01/11/2018 11:00 AM Transportation at D/C:Family Discharge Delay Reason: Follow-Up Date:01/11/2018 11:00 AM Discharge Slot: Final Diagnosis: Placement Information Referral Type:[facility] Referral Referral ID:[id number] Provider Name:[facility] - [facility] Intake/[employer] Address 1:[address] Address 2: City:[place] Selection Factors: State:[place] Patient Contact Information Contact Name:OMKAR Relationship: Address:[address] City:[place] Alternate Phone: State/Zip Code:[place] [address] Email: Financial Information Financial Class:Medicare Primary Plan Desc:MEDICARE INPATIENT Primary Plan Number:[id number] Secondary Plan Desc:HUMANA Secondary Plan Number:[id number] Assessment Information [facility] Initial CM Assessment Living Arrangements What is your living Answers: With Spouse arrangement? Who do you live with? Type Of Residence What kind of residence do Answers: House you live in? Discharge Plan Comments Coordination Status Comments Notes: Pt is a 82 y/o man admitted for sotalol. Pt had surgery w/ Dr. Aparicio. Pt was recently here at [facility] on 12/12/17 to 12/23/17 for pericardial effusion and went to [facility] for rehab. Needs are TBD at this time. CM to follow. Plan: TBD Date Signed: 01/09/2018 10:18 AM Electronically Signed By:GOGO Deleon [facility] CM Progress Note CM Note CM Note Notes: PT/OT not ordered. Pt ambulating in the halls with standby assist. Wound vac noted. Spoke with RN; unsure if pt will need a home wound vac; CM to discuss with Surgical Team. Wound Care currently following pt for dressing changes. Pt may need C RN at time of dc. ID also following pt. Pt currently on IV abx, but anticipate transition to PO abx. CM will follow. Dc poc-TBD Date Signed: 01/10/2018 01:15 PM Electronically Signed By:Sarah Guillen RN LACE LACE Length of stay for Answers: 2 days current admission Acuity / Level of Answers: Yes Care: Did the patient have an inpatient admission? Comorbidities - select Answers: Any tumor (including all that apply lymphoma or leukemia) Other Notes: aortic arch reconstruction, HTN # of Emergency department Answers: 1-2 visits in the last 6 months Score: 9 Date Signed: 01/12/2018 03:10 PM Electronically Signed By:Ana Luisa Wisdom RN [facility] CM Progress Note CM Note CM Note Notes: Spoke with MD; pt will need a home wound vac ordered. Called Lelo at [facility], but she is out of town until 01/13; Vlad covering, but not available until Friday 01/12. Wound Vac Authorization Form completed & placed in pt's chart; awaiting MD's signature; MD & RN aware. [facility] referral also sent via [employer]. [facility] currently out of home wound vacs; expected delivery on Friday 01/12. CM will follow. Dc poc: home w/wound vac Date Signed: 01/11/2018 04:07 PM Electronically Signed By:Sarah Guillen RN Case Management Discharge Plan Note Case Management Discharge Discharge Order Complete? Answers: Yes Patient to Obtain Answers: Independently Medications Transportation Arranged Answers: Family/Friends Faxed Final Orders Answers: Yes Family Notified Answers: Yes Notes: in room Discharge Comments Notes: 01/12/2018 Case Management Note Delivered [facility] wound vac to pt in room Pt and RN Adelaida present. Pt signed necessary paperwork (proof of delivery), faxed back to [facility], put confirmation of fax receipt in chart. Pt declined home visitor home base head start. Per pt the surgeon plans to have wound vac removed at first dressing change during follow up within the week. Pt to transport home. No further case management d/c needs identified. Date Signed: 01/12/2018 03:14 PM Electronically Signed By:Ana Luisa Wisdom RN Intervention Information Intervention Type:*WAN-Signed Date of Service:01/09/2018 09:41 AM Patient Type:Observation Staff Member:Lee Ann Hartman Hours: Discipline: Severity: Comment: Intervention Type:*IM-Signed Date of Service:01/12/2018 01:53 PM Patient Type:Inpatient Staff Member:Lee Ann Hartman Hours: Discipline: Severity: Comment:
--- NOTE | 2018-01-17 19:50 | GOP ---
[f rep st] OPERATIVE REPORT DATE OF OPERATION: SURGEON: Pato Aparicio MD PRODUCTION DISPATCHER: Amadou Sevilla MD. PREOPERATIVE DIAGNOSIS: Infected right axillary artery graft. POSTOPERATIVE DIAGNOSIS: Infected right axillary artery graft. PROCEDURE PERFORMED: Incision and drainage and drainage with resection of right axillary artery dominick t and vein patch repair with rotation muscle flap coverage. FINDINGS: Patient was found to have a retained Dacron graft which was infected, and there was some g ross purulence around the graft down to the artery as well as some old Angio-Seal material. DESCRIPTION OF PROCEDURE: The patient was taken to the operating room where he received a satisfacto ry general endotracheal anesthesia. He was placed in the supine position, prepped and draped in the usual sterile fashion. A transverse incision was made inferior to the clavicle on the right. Dissec tion was carefully carried down through the subcutaneous tissue and through the inflammatory changes, abscess cavity was encountered. This was cultured and suctioned clear. Dissection continued deeper until the axillary graft was identified. Dissection then followed down along the axillary graft to the mechoopda axillary artery. Careful dissection achieved proximal and distal control of the axillary artery just as it went underneath the clavicle. After adequate exposure was achieved, the wound was irrigated and debrided and then the patient was heparinized. The vessel was occluded with vessel loo ps and the entire axillary graft was excised and removed, along with its sutures. The edge of the ar teries was debrided and then an adjacent segment of vein was taken and split open and used as a vein patch and sutured in place with a running 6-0 Prolene suture of the defect in the axillary artery. S uture line appeared to be hemostatic. Flow was restored. Heparin was reversed with protamine. The wound was infiltrated with 0.5% Marcaine and further irrigated. The pectoralis minor muscle was then mobilized, and a section was freed up and rotated laterally to cover up the arterial repair. This w as sutured in place with 3-0 Vicryl sutures. Some Angio-Seal debris was dissected free and removed a s well. The wound was then dressed with a wound VAC. He tolerated the procedure well. Blood loss wa s negligible. There were no complications. He was taken to the recovery room in good condition. /[id number]/MODL
== END 2018-01-12 16:37 | disposition home or self-care (01) | DRG 253 ==
LOC: FSGY 10:30 → F3E 18:12 → F2W 18:43 → OBSVTOIN 01-09 16:14
PROVIDERS: ADMIT Surgery; ATTEND Surgery
PROC: 03U Upper Arteries, Supplement (ICD-10-PCS; principal; 2018-01-08 12:45)
DX: T82.7XXA Infection and inflammatory reaction due to other cardiac and vascular devices, implants and grafts, initial encounter (principal); L02.411 Cutaneous abscess of right axilla; I10 Essential (primary) hypertension; Z95.0 Presence of cardiac pacemaker; Z85.46 Personal history of malignant neoplasm of prostate
CPT/HCPCS: C1757; J0690; J1100; J1335; J1644; J2370; J2405; J2440; J2704; J2720; J3010

== ENCOUNTER 2018-01-16 08:15 | Day surgery (SDC) | payer OTHER ==
[2018-01-16] MEDS ORDERED: ceFAZolin 2 GM/DEXTROSE 100 ML IV ONE (08:40)
[2018-01-16] MEDS ORDERED: LR 1,000 ML IV ONE (08:41)
--- NOTE | 2018-01-16 09:11 | PDANEPAE ---
ANE History of Present Illness Delayed wound closure ANE Past Medical History - Cardiovascular History Hx Hypertension: Yes Hx Arrhythmias: No Hx Chest Pain: No Hx Coronary Artery / Peripheral Vascular Disease: No Hx CHF / Valvular Disease: Yes Hx Palpitations: No Cardiovascular History Comment: htn. aortic regurg. thoracic ascending aortic aneurysm - Pulmonary History Hx COPD: No Hx Asthma/Reactive Airway Disease: No Hx Recent Upper Respiratory Infection: No Hx Oxygen in Use at Home: No Hx Sleep Apnea: No Sleep Apnea Screening Result - Last Documented: Positive Pulmonary History Comment: sarah triggers - Neurologic History Hx Cerebrovascular Accident: No Hx Seizures: No Hx Dementia: No - Endocrine History Hx Diabetes: No Obesity: no - Renal History Hx Renal Disorders: No Renal History Comment: prostate ca 2010 with radiation - Liver History Hx Hepatic Disorders: No - Neurological & Psychiatric Hx Hx Neurological and Psychiatric Disorders: No - Cancer History Hx Cancer: Yes Cancer History Comment: prostate - Congenital Disorder History Hx Congenital Disorders: No - GI History Hx Gastrointestinal Disorders: Yes Gastrointestinal History Comment: GERD. hx of barretts esophagus. hx of EGD's - Other Health History Other Health History: wearing glasses temporarily d/t cataract surgery. moderatly TULALIP - Chronic Pain History Chronic Pain: No - Surgical History Prior Surgeries: bilateral cataract surgery 09/15/17. right ankle repair. tonsillectomy. cancerous cyst removed from waistline. external beam radation for prostate ca 2009. 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: [employer] Pacemaker Model: Edore 8DR-T Pacemaker Mode: DDD Date Pacemaker Last Checked: new implant 12/05/17 ANE Patient History - Allergies Allergies/Adverse Reactions: ciprofloxacin Allergy (Unknown, Unverified 01/12/18 11:29) Other-Enter Comments levofloxacin Allergy (Unknown, Unverified 01/12/18 11:29) Other-Enter Comments - Home Medications Home medications: home medication list seen and reviewed Home Medications: Omeprazole 20 mg PO DAILY 11/17/17 [Last Taken 01/15/18] Sennosides/Docusate Sodium [Senokot-S] 1 - 2 tab PO BID PRN 12/12/17 [Last Taken 01/15/18] - NPO status NPO Since - Liquids (Date): 01/15/18 NPO Since - Liquids (Time): 22:30 NPO Since - Solids (Date): 01/15/18 NPO Since - Solids (Time): 22:30 - Anes Hx Anes Hx: no prior problems - Smoking Hx Smoking Status: Never smoked - Family Anes Hx Family Hx Anesthesia Complications: NONE ANE Labs/Vital Signs - Vital Signs Blood Pressure: 129/81 Heart Rate: 80 Respiratory Rate: 18 O2 Sat (%): 93 Height: 162.56 cm Weight: 52.617 kg ANE Physical Exam - Airway Neck exam: FROM Mallampati Score: Class 2 Mouth exam: normal dental/mouth exam - Pulmonary Pulmonary: no respiratory distress - Cardiovascular Cardiovascular: regular rate and rhythym - ASA Status ASA Status: III ANE Anesthesia Plan Anesthesia Plan: GA w LMA
[2018-01-16] MEDS ORDERED: PROPOFOL 200 MG/20 ML VIAL ONE (09:20)
[2018-01-16] MEDS ORDERED: fentaNYL 100 MCG/2 ML INJ ONE (09:20)
[2018-01-16] MEDS ORDERED: LIDOCAINE 2% 5 ML SDV ONE (11:01)
[2018-01-16] MEDS ORDERED: DEXAMETHASONE 4 MG/ML VIAL ONE (11:16)
[2018-01-16] MEDS ORDERED: BUPIVACAINE 0.25% 30 ML SDV ONE (11:30)
[2018-01-16] MEDS ORDERED: ONDANSETRON 4 MG/2 ML VIAL ONE (11:31)
[2018-01-16] MEDS ORDERED: THROMBIN (BOVINE) 5,000 UNIT VIAL TP ONE (11:32)
[2018-01-16] MEDS ORDERED: HYDROCODONE/APAP 5/325 TAB PO PRN (11:33)
[2018-01-16] MEDS ORDERED: LR 500 ML IV PRN (11:33)
[2018-01-16] MEDS ORDERED: ACETAMINOPHEN 500 MG TAB PO PRN (11:33)
[2018-01-16] MEDS ORDERED: PROMETHAZINE HCL 25 MG/ML INJ IVP PRN (11:33)
[2018-01-16] MEDS ORDERED: ONDANSETRON 4 MG/2 ML VIAL IVP PRN (11:33)
[2018-01-16] MEDS ORDERED: NALOXONE HCL 0.4 MG/ML INJ IVP PRN (11:33)
[2018-01-16] MEDS ORDERED: ALBUTEROL 3 ML DEYVIAL IH PRN (11:33)
[2018-01-16] MEDS ORDERED: fentaNYL 100 MCG/2 ML INJ IVP PRN (11:33)
[2018-01-16] MEDS ORDERED: HYDROmorphONE/DILAUDID 1 MG/ML INJ IVP PRN (11:33)
[2018-01-16] MEDS ORDERED: oxyCODONE IR 5 MG TAB PO PRN (11:33)
--- NOTE | 2018-01-16 11:34 | POSTANESTH ---
Post Anesthetic Evaluation Cardiovascular Status: Normal, Stable Respiratory Status: Normal, Stable Level of Consciousness/Mental Status: Can Participate in Eval, Mildly Sleepy, Arousable Pain Control: Adequate, Prn Tx Ordered Nausea/Vomiting Control: Adequate, Prn Tx Ordered Complications Possibly Related to Anesthesia: None Noted
[2018-01-16] MEDS ORDERED: PHENYLEPHRINE HCL 100 MCG/ML SYR ONE (11:36)
--- NOTE | 2018-01-16 12:13 | POSTOPPROG ---
Post Op Note Date of Operation: 01/16/18 Surgeon: Pato Aparicio Product Safety Officer: Tressa Anesthesiologist: Rashid Anesthesia: GET(General Endotracheal) Pre-op Diagnosis: Right axillary wound Post-op Diagnosis: same Indication: same Procedure: right axillary secondary wound closure Inf/Abcess present in the surg proc area at time of surgery?: No Depth: Deep Incisional (Fascial) EBL: Minimal
[2018-01-16 13:46] VITALS: BP 128/68
--- NOTE | 2018-01-17 21:35 | GOP ---
[f rep st] OPERATIVE REPORT DATE OF OPERATION: 01/16/2018 SURGEON: Pato Aparicio MD WARD SUPERVISOR: Mirna Bustillos NP. ANESTHESIOLOGIST: Jairo Mike MD. PREOPERATIVE DIAGNOSIS: Open axillary artery wound. POSTOPERATIVE DIAGNOSIS: Open axillary artery wound. PROCEDURE PERFORMED: Advancement flap closure, delayed primary closure. FINDINGS: Clean granulating wound DESCRIPTION OF PROCEDURE: The patient was taken to the operating room where he received a satisfactory general laryngeal mask anesthesia by Dr. Mike. He was placed in a supine position, prepped and draped in the usual sterile fashion. He was prepped and draped in the usual sterile fashion. An elliptical skin incision was made to excise a small portion of the skin edges and subcutaneous tissue. The muscle tissue underneath was elevated up and advanced and then closed over the axillary artery closure with interrupted 2-0 Vicryl sutures. Subcu was closed with interrupted 3-0 Vicryl sutures. Wound was infiltrated with 0.5% Marcaine. Some topical thrombin was placed in the depths of the wound. The skin was closed with 4-0 Monocryl subcuticular stitch. The wound was further infiltrated with 0.5% Marcaine. He tolerated the procedure well. Taken to recovery room in good condition with no complications complications. /[id number]/MODL MTDD
== END 2018-01-16 13:50 | disposition home or self-care (01) ==
LOC: FSGY 08:15
PROVIDERS: ATTEND Surgery
PROC: 0KX Muscles, Transfer (ICD-10-PCS; principal; 2018-01-16 09:45)
DX: T82.7XXA Infection and inflammatory reaction due to other cardiac and vascular devices, implants and grafts, initial encounter (principal); L02.411 Cutaneous abscess of right axilla; I10 Essential (primary) hypertension; Z95.0 Presence of cardiac pacemaker; Z85.46 Personal history of malignant neoplasm of prostate
CPT/HCPCS: J0690; J1100; J2370; J2405; J2704; J3010

== ENCOUNTER → 2018-03-16 | Outpatient (CLI) | payer OTHER | LOC: FIMAGING 14:31 | PROVIDERS: ATTEND Surgery | DX: R07.81 Pleurodynia (principal) ==

== ENCOUNTER → 2018-03-31 | Outpatient (CLI) | payer OTHER ==
[~2018-03-31] MED LIST changes: -IOPAMIDOL (ISOVUE 370) 100 ML BTL IV ONE; +IOPAMIDOL (ISOVUE-300) 100 ML BTL ONE
== END ==
LOC: FIMAGING 13:29
PROVIDERS: ATTEND Internal Medicine Cardiovascular Disease
DX: S22.22XK Fracture of body of sternum, subsequent encounter for fracture with nonunion (principal); R91.8 Other nonspecific abnormal finding of lung field; K44.9 Diaphragmatic hernia without obstruction or gangrene; M47.894 Other spondylosis, thoracic region; I70.0 Atherosclerosis of aorta
CPT/HCPCS: 71260; Q9967; 82565-PO

== ENCOUNTER 2018-09-25 05:31 | Emergency (ER) | payer OTHER ==
[2018-09-25 05:36] VITALS: BP 181/115
--- NOTE | 2018-09-25 05:48 | EDPHY ---
H & P Stated Complaint: unable to urinate after prostate scope Time Seen by Provider: 09/25/18 05:45 HPI/ROS: Chief Complaint: Unable to urinate HPI: 83-year-old male presenting with inability urinate. Patient states that he had a cystoscopy performed by Dr. Hua yesterday morning. Patient noticed during the course of the afternoon and early evening that he had decrease in his urinary stream. Denies any blood. He was last able to urinate about 830 last night. This is persisted overnight he has had the increasing urge to urinate and discomfort in his lower abdomen. No nausea or vomiting. No fevers or chills. No history of urinary retention in the past. It was noted that his prostate seemed irritated but there were no other abnormalities remarked by Dr. Hua. ROS: 10 systems were reviewed and were negative except those elements noted in the HPI. Social History: No smoking, no alcohol, no recreational drug use Family History: non-contributory Physical Exam: Gen: Awake, Alert, No Distress HEENT: Nose: no rhinorrhea Eyes: PERRLA, EOMI Mouth: Moist mucosa Neck: Supple, no JVD Chest: nontender, lungs clear to auscultation Heart: S1, S2 normal, no murmur Abd: Soft, distended bladder which is palpable, no guarding Back: no CVA tenderness, no midline tenderness Ext: no edema, non-tender Skin: no rash Neuro: CN II-XII intact, Sensation grossly intact, Strength 5/5 in bilateral upper and lower extremities - Personal History Current Tetanus Diphtheria and Acellular Pertussis (TDAP): Unsure - Medical/Surgical History Hx Asthma: No Hx Chronic Respiratory Disease: No Hx Diabetes: No Hx Cardiac Disease: Yes Hx Renal Disease: No Hx Cirrhosis: No Hx Alcoholism: No Hx HIV/AIDS: No Hx Splenectomy or Spleen Trauma: No Other PMH: HTN, ANKLE FX, NOSE THINNING TO R SIDE, TONSILECTOMY. heart valve replacement. PACEMAKER - Social History Smoking Status: Never smoked Constitutional: Initial Vital Signs Temperature (C) 36.3 C 09/25/18 05:33 Heart Rate 87 09/25/18 05:33 Respiratory Rate 18 09/25/18 05:33 Blood Pressure 181/115 H 09/25/18 05:33 O2 Sat (%) 96 09/25/18 05:33 O2 Delivery Mode Room Air Allergies/Adverse Reactions: ciprofloxacin Allergy (Unknown, Unverified 09/25/18 05:33) Other-Enter Comments levofloxacin Allergy (Unknown, Unverified 09/25/18 05:33) Other-Enter Comments Home Medications: Medication Instructions Recorded Omeprazole 20 mg PO DAILY 11/17/17 Aspirin [Aspirin 81mg (*)] 81 mg PO DAILY tab.chew 12/10/17 Metoprolol Tartrate [Lopressor 25 12.5 mg PO BID tab 12/10/17 mg (*)] Sennosides/Docusate Sodium 1 - 2 tab PO BID PRN 12/12/17 [Senokot-S] ALPRAZolam [Xanax 0.25 MG (*)] 0.25 mg PO BID PRN tab 12/23/17 Hydrochlorothiazide [HCTZ (*)] 25 mg PO DAILY tab 12/23/17 Melatonin [Melatonin 3 MG (*)] 3 mg PO HS PRN tab 12/23/17 Cephalexin 500 mg PO Q8HRS 9 Days #27 tablet 01/12/18 oxyCODONE/APAP 5/325 [Percocet 1 - 2 tab PO Q4 PRN #15 tab 01/12/18 5/325 (*)] Medical Decision Making ED Course/Re-evaluation: Newby catheter placed. Patient had 300 mL of blood tinged urine returned. He was continuing to drain without difficulty. He will be discharged with a Newby catheter in place. He has been instructed to follow up with his urologist, Dr. Hua, later today. Will call for next available appointment. Departure - Departure Disposition: Home, Routine, Self-Care Clinical Impression: Acute retention of urine Condition: Good Instructions: Urinary Retention in Men (ED), Newby Catheter Placement and Care (ED) Additional Instructions: Follow up with your urologist in 1-2 days for further evaluation. Leave the Newby catheter in place until you are seen in follow-up. Referrals: Mykel Mccarthy DO [Primary Care Provider] - As per Instructions Noah Hua MD [Medical Doctor] - As per Instructions
== END 2018-09-25 06:32 | disposition home or self-care (01) ==
PROC: 0T9B70Z Drainage of Bladder with Drainage Device, Via Natural or Artificial Opening (ICD-10-PCS; principal; 2018-09-25)
DX: R33.9 Retention of urine, unspecified (principal)

== ENCOUNTER 2018-09-25 16:57 | Emergency (ER) | payer OTHER ==
--- NOTE | 2018-09-25 17:22 | EDPHY ---
H & P Stated Complaint: locke placed this morning blocked and leaking Time Seen by Provider: 09/25/18 17:18 HPI/ROS: HPI: This Is an 83-year-old male who presents with Chief Complaint: locke placed this morning blocked and leaking Location: Quality: Locke catheter malfunction Duration: Since around 10:00 a.m. Signs and Symptoms: no fever, no nausea, no vomiting, no hematemesis, no blood in stool, no abdominal bloating, no diarrhea, no back pain, no urinary symptoms , no testicular/groin pain, no indigestion, no chest pain, no shortness of breath Timing: Acute Severity: Mild Context: Patient had a cystoscopy performed by Dr. Hua yesterday morning. He knows during the course of the afternoon in her leaning that he had decrease in his urinary stream. He denies any blood. Patient reports that overnight he had increasing urge to urinate and discomfort in his lower abdomen. He came to the emergency room early this morning and a Locke catheter 16 [place] was placed with a 10 mL balloon inflated. Patient had immediate return of 300 mL of blood tinged urine. He reports that he had good urinary output into his Locke leg bag from 5:00 a.m. To 10:00 a.m. Then over the next several hours he has noticed decreased urinary output with suprapubic irritation and burning sensation at the tip of his penis/urethra where the Locke catheter passes. He is concerned that the Locke catheter "is not working correctly." He last urinated approximately 2 hr prior to arrival. He denies any fever, penile discharge, bleeding, back pain. Modifying Factors: None Comment: ROS: A comprehensive 10 system review of systems is otherwise negative aside from elements mentioned in the history of present illness. MEDICAL/SURGICAL/SOCIAL HISTORY: Medical history: HTN, ANKLE FX, NOSE THINNING TO R SIDE Surgical history: Tonsillectomy, heart valve replacement, pacemaker Social history: Never smoked. Retired. Family history noncontributory. CONSTITUTIONAL: Standing upright walking around the emergency room elderly white male, nontoxic in appearance, talkative and polite, awake and alert, no obvious distress HEENT: Atraumatic and normocephalic, PERRL, EOMI. Wears glasses. Nares patent ; no rhinorrhea; no nasal mucosal edema. Tympanic membranes clear. Oropharynx clear, no exudate and moist pink mucosa. Airway patent. No lymphadenopathy. No meningismus. Cardiovascular: Normal S1/S2, regular rate, regular rhythm, without murmur rub or gallop. PULMONARY/CHEST: Symmetrical and nontender. Clear to auscultation bilaterally. Good air movement. No accessory muscle usage. ABDOMEN: Soft, nondistended, mild suprapubic tenderness, no rebound, no guarding, no peritoneal signs, no masses or organomegaly. No CVAT. Male : circumcised penis, Locke catheter present in urethra with no surrounding bleeding; Locke leg bag attached right upper thigh; bilateral descended testes, no testicular swelling, no testicular masses, no penile discharge, no lesions, negative Prehn's sign. EXTREMITIES: 2/2 pulses, strength 5/5, no deformities, no clubbing, no cyanosis or edema. NEUROLOGICAL: no focal neuro deficits. GCS 15. SKIN: Warm and dry, no erythema. no rash. Good capillary refill. Source: Patient, Old records Exam Limitations: No limitations - Personal History Current Tetanus Diphtheria and Acellular Pertussis (TDAP): Unsure - Medical/Surgical History Hx Asthma: No Hx Chronic Respiratory Disease: No Hx Diabetes: No Hx Cardiac Disease: Yes Hx Renal Disease: No Hx Cirrhosis: No Hx Alcoholism: No Hx HIV/AIDS: No Hx Splenectomy or Spleen Trauma: No Other PMH: HTN, ANKLE FX, NOSE THINNING TO R SIDE, TONSILECTOMY. heart valve replacement. PACEMAKER - Social History Smoking Status: Never smoked Constitutional: Initial Vital Signs Temperature (C) 36.6 C 09/25/18 17:09 Heart Rate 92 09/25/18 17:09 Respiratory Rate 17 09/25/18 17:09 Blood Pressure 140/80 H 09/25/18 17:09 O2 Sat (%) 95 09/25/18 17:09 O2 Delivery Mode Room Air Allergies/Adverse Reactions: ciprofloxacin Allergy (Unknown, Verified 09/25/18 17:09) Other-Enter Comments levofloxacin Allergy (Unknown, Verified 09/25/18 17:09) Other-Enter Comments Home Medications: Medication Instructions Recorded Omeprazole 20 mg PO DAILY 11/17/17 Aspirin [Aspirin 81mg (*)] 81 mg PO DAILY tab.chew 12/10/17 Metoprolol Tartrate [Lopressor 25 12.5 mg PO BID tab 12/10/17 mg (*)] Sennosides/Docusate Sodium 1 - 2 tab PO BID PRN 12/12/17 [Senokot-S] ALPRAZolam [Xanax 0.25 MG (*)] 0.25 mg PO BID PRN tab 12/23/17 Hydrochlorothiazide [HCTZ (*)] 25 mg PO DAILY tab 12/23/17 Melatonin [Melatonin 3 MG (*)] 3 mg PO HS PRN tab 12/23/17 oxyCODONE/APAP 5/325 [Percocet 1 - 2 tab PO Q4 PRN #15 tab 01/12/18 5/325 (*)] Medical Decision Making ED Course/Re-evaluation: Vital signs reviewed and stable upon arrival. No systemic signs. Bladder scan at bedside per nursing shows 210 mL Balloon deflated and catheter irrigated with good urinary output of 250 mL of blood tinged urine. No indication for urinalysis to be obtained. 1758: Informed by RN that catheter is leaking again Uro jet placed for comfort prior to 16 F Locke catheter removal and 18 [place] catheter placement with good results. Patient given the remaining Uro jet to take home for for use for penile urethra tip discomfort secondary to Locke catheter as needed Patient given gravity bag. Patient will follow up with Urology as previously planned. This patient was seen under the supervision of my secondary supervising physician. I evaluated care for this patient independently. Discussed this patient with Dr. Cabello who did not see the patient. Differential Diagnosis: Differential diagnosis includes but is not limited to prostatitis, urinary tract infection, catheter blockage, balloon misplacement. Departure - Departure Disposition: Home, Routine, Self-Care Clinical Impression: Locke catheter problem Qualifiers: Encounter type: initial encounter Qualified Code(s): T83.9XXA - Unspecified complication of genitourinary prosthetic device, implant and graft, initial encounter Condition: Good Instructions: Locke Catheter Placement and Care (ED) Additional Instructions: Follow-up with urologist in 1-2 days for further evaluation. Leave the Locke catheter in place until you are seen in follow-up. Referrals: Mykel Mccarthy DO [Primary Care Provider] - As per Instructions Noah Hua MD [Medical Doctor] - As per Instructions
[2018-09-25] MEDS ORDERED: LIDOCAINE 2% JELLY 20 ML (UROJECT) ONE (18:55)
[2018-09-25] MEDS ORDERED: LIDOCAINE 2% JELLY 20 ML (UROJECT) UR ONE ×2 (18:55→19:20)
[2018-09-25 19:29] VITALS: BP 136/82
== END 2018-09-25 19:32 | disposition home or self-care (01) ==
DX: T83.098A Other mechanical complication of other urinary catheter, initial encounter (principal)

== ENCOUNTER 2018-09-25 21:48 | Emergency (ER) | payer OTHER | END 2018-09-26 01:18 | disposition home or self-care (01) ==

== ENCOUNTER 2018-09-26 12:34 | Emergency (ER) | payer OTHER | END 2018-09-26 13:48 | disposition home or self-care (01) ==